=== PATIENT | male | born 1960 | race Caucasian/White ===

== ENCOUNTER 2024-10-08 08:11 | Outpatient (OUT) | payer OTHER, SELFPAY ==
--- NOTE | 2024-10-08 08:35 | CT_ITS ---
[address] [address] Patient Name: MURIEL ALLEN MRN: [id number] date: 1960 Sex: M Assigned Patient Location: LAB Current Patient Location: LAB Accession/Order Number: [id number] Exam Date: 10/08/2024 09:45 Report Date: 10/08/2024 11:58 At the request of: [facility] Procedure: CT pelvis w con EXAMINATION: CT pelvis w con HISTORY: Hydrocele N43.3 COMPARISON: No relevant comparison available. TECHNIQUE: Axial, Coronal, and Sagittal images were obtained without and/or with IV contrast as indicated by examination type. Dose reduction techniques were achieved by using automated exposure control and/or adjustment of mA and/or kV according to patient size and/or use of iterative reconstruction technique FINDINGS: BOWEL: Numerous diverticula involving the sigmoid colon without acute inflammatory changes. Unremarkable visible small bowel. Normal appendix. LYMPH NODES: No adenopathy. URINARY BLADDER: No visible focal wall thickening, lesion, or calculus. PELVIC ORGANS: No visible mass. Pelvic organs appropriate for patient age. ANTERIOR WALL: No hernia. BONES: Expansile thin-walled lesion within right iliac wing 6.4 x 7.5 cm in diameter by 2.0 cm in thickness. No cortical thickening, cortical destruction, or periosteal reaction. OTHER: Large amount of fluid within the right and left hemiscrotum with thin septations. No appreciable mass or inflammatory changes. CT/CT pelvis w con IMPRESSION: 1. Large bilateral hydroceles versus spermatoceles, right greater than left of uncertain etiology. No abnormal findings within the inguinal canals. No appreciable mass. 2. Colonic diverticulosis. 3. Nonspecific expansile lesion within right iliac wing; sequela of prior trauma versus tumor. Electronically authenticated by: SHASHI CHOWDARY Date: 10/08/2024 11:58
[2024-10-08 08:53] LABS: Estimated GFR (African America >60 (>=60 mL/min/1.73m^2); Estimated GFR (Non-African Ame >60 (>=60 mL/min/1.73m^2)
== END 2024-10-08 08:12 | disposition home or self-care (01) ==
LOC: LAB 08:18
PROVIDERS: Family Provider Internal Medicine; PCP Family Medicine; Visit Provider Surgery
DX: Z01.812 Encounter for preprocedural laboratory examination (principal); N43.3 Hydrocele, unspecified; K57.90 Diverticulosis of intestine, part unspecified, without perforation or abscess without bleeding
CPT/HCPCS: 36415; 72193; 82565; Q9967

== ENCOUNTER 2024-12-01 09:09 | Outpatient (OUT) | payer OTHER, SELFPAY ==
--- NOTE | 2024-12-01 09:45 | ECG_ITS ---
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 Measurements Intervals [place] Rate: 100 P: [place]: QRS: 81 QRSD: 100 T: 0 QT: 336 QTc: 433 Interpretive Statements ATRIAL FIBRILLATION WITH RAPID VENTRICULAR RESPONSE ANTEROSEPTAL MYOCARDIAL INFARCTION [40+ ms Q WAVE IN V1-V4], OF INDETERMINATE AGE No previous ECG available for comparison Electronically Signed On 12-02-2024 6:25:53 EST by MARISA SU M.D.
[2024-12-01 10:21] LABS: Basophils Percent Auto 0.2 % (0.2-2.0); Hematocrit 46.5 % (42.0-54.0); Hemoglobin 15.3 g/dL (14.0-18.0); Immature Granulocytes Abs Auto 0.01 10^3/uL (0.00-0.03); Immature Granulocytes Pct Auto 0.2 % (0.0-0.5); Lymphocytes Absolute Auto 1.4 10^3/uL (1.2-3.8); Lymphocytes Percent Auto 23.6 % (20.5-60.0); Mean Corpuscular HGB Conc 32.9 g/dL (29.9-35.2); Mean Corpuscular Hemoglobin 30.6 pg (25.9-34.0); Mean Platelet Volume 10.6 fL (9.5-13.5); Monocytes Absolute Auto 0.5 10^3/uL (0.3-0.8); Monocytes Percent Auto 7.9 % (1.7-12.0); Neutrophils Absolute Auto 4.2 10^3/uL (1.4-6.5); Neutrophils Percent Auto 68.1 % (43.0-75.0); Platelet Count 146 10^3/uL (150-450); Red Cell Distribution Width 13.5 % (11.0-15.0); White Blood Count 6.1 10^3/uL (4.0-11.0)
[2024-12-01 10:36] LABS: Anion Gap 9.9; BUN Creatinine Ratio 15.1; Calcium 9.1 mg/dL (8.5-10.1); Chloride 105 mmol/L (98-107); Estimated GFR (African America >60 (>=60 mL/min/1.73m^2); Estimated GFR (Non-African Ame >60 (>=60 mL/min/1.73m^2); Glucose 97 mg/dL (74-106); Potassium 4.9 mmol/L (3.5-5.1); Sodium 139 mmol/L (136-145)
--- NOTE | 2024-12-01 10:39 | PM.PRESUREVA ---
History of Present Illness History of Present Illness Chief complaint: Right Hydrocele Narrative: Patient presents for presurgical testing. The patient reports bilateral testicular swelling, right worse than left. The patient reports an increase in size and pain when doing any heavy lifting. He denies any urinary complaints. Review of Systems ROS Narrative REVIEW OF SYSTEMS: Negative except as stated in HPI, ten or more systems reviewed. Constitutional: No fever, chills, weakness ENT: No sore throat or epistaxis Cardiovascular: No edema, chest pain, palpitations, or activity intolerance Respiratory: No shortness of breath, cough, or wheezing Musculoskeletal: No joint pain or swelling Gastrointestinal: No abdominal pain, constipation, diarrhea, or vomiting Genitourinary: No dysuria or hematuria Neurological: No numbness, tingling, weakness, or headache Psychiatric: No mood changes PFSH PFS Medical History (Updated 12/01/24 @ 10:37 by Sierra Manzo NP) Irregular heart rate (12/01/24) ?I49.9 - Cardiac arrhythmia, unspecified (ICD-10) Abnormal EKG (12/01/24) ?R94.31 - Abnormal electrocardiogram [ECG] [EKG] (ICD-10) High cholesterol ?E78.00 - Pure hypercholesterolemia, unspecified (ICD-10) Right hydrocele ?N43.3 - Hydrocele, unspecified (ICD-10) Surgical History (Updated 12/01/24 @ 09:52 by Sierra Manzo NP) H/O inguinal hernia repair ?Z98.890 - Other specified postprocedural states (ICD-10) ?Z87.19 - Personal history of other diseases of the digestive system (ICD-10) History of hydrocelectomy ?Z98.890 - Other specified postprocedural states (ICD-10) Social History (Updated 12/01/24 @ 09:56 by Sierra Manzo NP) Within the past year, how often did you have a drink containing alcohol: monthly or less Smoking status: Current every day smoker What tobacco products do you use: cigarettes Packs per day: 1 Years smoked: 50 Smoking pack-years: 50.00 Non-prescribed substance use: cannabis (any form) Previous occupational history: [employer] Highest level of school completed/degree received: high school graduate Meds Home Medications and Allergies Home Medications ?Medication ?Instructions ?Recorded ?Confirmed ?Type ozxiylaus-QUF-AU-acetaminophen 7.5 30 ml PO QPM 12/01/24 12/01/24 History mg-60 [id number]/30mL oral liqd Allergies Allergy/AdvReac Type Severity Reaction Status Date / Time No Known Drug Allergies Allergy Verified 12/01/24 09:53 Exam Narrative Exam Narrative: Constitutional: Awake, alert, comfortable, well-appearing, nontoxic, interactive, vital signs as charted Head: Normocephalic, atraumatic Neck: Supple, normal appearance, normal range of motion, no meningeal signs, no lymphadenopathy Respiratory: No respiratory distress, breath sounds clear Cardiovascular: Regular rate, irregularly irregular rhythm, no murmur Abdomen: Nontender, normal bowel sounds, soft, no CVA tenderness Musculoskeletal: Normal gait, no swelling or edema Skin: No rashes or induration, no lesions, only visible skin inspected Neuro: No neurological deficits, normal sensation Psychiatric: Oriented ?3, normal affect Assessment and Plan Assessment and Plan (1) Right hydrocele: Plan Right hydrocelectomy scheduled with Dr. Hernandez December 16, 2024. The patient has an abnormal EKG here today in presurgical testing. The patient is asymptomatic, denies chest pain, shortness of breath, dyspnea on exertion, syncope, dizziness, or any other complaints. This is reported to Dr. Buitrago as well as Dr. Hernandez offices. Dr. Buitrago will see the patient in the office tomorrow morning. Patient was instructed to report to the nearest emergency department or call 911 if having any new symptoms or concerns.
[2024-12-01 10:58] LABS: INR 1.02; Partial Thromboplastin Time 26.9 sec (22.3-36.2); Prothrombin Time 10.8 sec (9.0-11.6)
== END 2024-12-01 09:10 | disposition home or self-care (01) ==
LOC: PST 09:09
PROVIDERS: Family Provider Internal Medicine; PCP Family Medicine; Visit Provider Urology
DX: Z01.810 Encounter for preprocedural cardiovascular examination (principal); Z01.812 Encounter for preprocedural laboratory examination; Z01.818 Encounter for other preprocedural examination; N43.3 Hydrocele, unspecified; I48.20 Chronic atrial fibrillation, unspecified
CPT/HCPCS: 80048; 85025; 85610; 85730; 93005; G0463

== ENCOUNTER 2025-01-11 15:50 | Emergency (ER) | payer OTHER, SELFPAY ==
[2025-01-11 16:03] VITALS: BP 148/94; PULSE 101; TEMP 37.3; O2SAT 99; BMI 23.1
--- OUTSIDE RECORDS SUMMARY | 2025-01-11 16:07 | XMS_ITS | CCD ---
Author Organization [facility] Care Team Providers Care Baggage Porter Name Role Phone TRACI STOCKTON Unavailable Unavailable JEREMY SANTOS Unavailable Unavailable GEO JONES Unavailable Unavailable GEO JONES Unavailable Unavailable JEREMY SANTOS Unavailable Unavailable Vinicius Buitrago Primary Care Physician Vinicius Buitrago Attending Unavailable Vinicius Buitrago Attending Unavailable Vinicius Buitrago Attending Unavailable Vinicius Buitrago Referring Unavailable Vinicius Buitrago Admitting Unavailable Vinicius Buitrago Attending Unavailable Vinicius Buitrago Admitting Unavailable Vinicius Buitrago Referring Unavailable Elliot WELCH Attending Unavailable Vinicius Buitrago Admitting Unavailable Vinicius Buitrago Attending Unavailable HERNANDEZQuincy Attending Unavailable HERNANDEZ, Quincy R Attending Unavailable NILLElliot R Referring Unavailable HERNANDEZ, Quincy Sparrow Attending Unavailable HERNANDEZ, Quincy R Admitting Unavailable HERNANDEZ, Quincy R Attending Unavailable HERNANDEZ, Quincy R Admitting Unavailable HERNANDEZ, Quincy R Attending Unavailable Hina Genao Referring Unavailable MD Kai Ba Attending Unavailable MD Young Sung Admitting Unavailable MD Young Sung Attending Unavailable MD Kai Ba Referring Unavailable NONE, XXXX Referring Unavailable MD Kai Ba Attending Unavailable Vinicius Buitrago Attending Unavailable Vinicius Buitrago Attending Unavailable Hina Genao Attending Unavailable Hina Genao Referring Unavailable MD Kai Ba Attending Unavailable MD Kai Ba Referring Unavailable MD Kai Ba Admitting Unavailable MD Kai Ba Consulting Unavailable MD Kai aB Attending Unavailable Kai Ba Consulting Kai Saab Consulting MD Kai Saab Admitting Unavailable MD Kai Ba Attending Unavailable MD Kai Ba Referring Unavailable Allergies Allergy Classification Reported Allergen(s) Allergy Type Date of Onset Reaction(s) Facility (3 sources) No Known Medication Allergies; Translations: [No Known Medication Allergies] Propensity to adverse reactions (disorder) [facility] Repository Problems Problem Classification Problem Date Documented Da te Episodic/Chronic Abdominal hernia (2 sources) Right inguinal hernia 08-19-2024 Episodic Cardiac dysrhythmias (8 sources) Atrial fibrillation; Translations: [Unspecified atrial fibrillation] Onset: 12-15-2024 12-02-2024 Chronic Other male genital disorders (1 source) Hydrocele; Translations: [HYDROCELE] Onset: 01-20-2018 Episodic Other male genital disorders (2 sources) Hydrocele of testis; Translations: [Hydrocele, unspecified] Onset: 09-07-2024 Episodic Other male genital disorders (16 sources) Disorder of male genital organ 09-07-2024 Episodic Other screening for suspected conditions (not mental disorders or infectious disease) (1 source) Encounter for screening for malignant neoplasm of prostate; Translations: [Screening for malignant neoplasm done] Onset: 11-08-2024 Episodic Residual codes; unclassified (10 sources) Tobacco user 08-19-2024 Episodic Substance-related disorders (11 sources) Tobacco dependence caused by cigarettes; Translations: [Nicotine dependence] Onset: 12-31-2024 08-19-2024 Chronic Unclassified (1 source) HYDROCELE / HYDROCELE() Onset: 01-20-2018 Unclassified (8 sources) Body mass index 20-24 - normal 10-11-2024 Unclassified (15 sources) Patient encounter status 10-11-2024 Results Test Name Value Interpretation Reference Range Facility NM Myocardial Spect Rest/Str ess 1 Dayon 01-06-2025 NM Myocardial Spect Rest/Stress 1 Day Exam Date/Time: 01/04/2025 13:02 EDT Reason for Exam: I48.91;Other (please specify) Report [facility] [address] [place] [address] Nuclear Stress Report Name: MEJIA ALLEN Study Date: 01/04/2025 10:44 AM [facility] Ambulatory(s) [facility] : 1960 (M/d/yyyy) Gender: Male Age: 64 yrs Ethnicity: T Reason For Study: I48.91;Other (please specify) Ordering Physician: Kai Ba Referring Physician: Kai Ba Protocol 19395 Pharmacologic Lexiscan stress with Isotope. Study Protocol: One day rest/stress acquisition. Rest Dose Tc99m Cardiolite was administered. Rest Dose: 10.1 mCi IV. Stress Dose Stress Protocol: Lexiscan. Stress Dose: 28.6 mCi IV. Stress Parameters Elevated blood pressure throughout. Stress Symptoms: Dizziness. ECG Rest Normal ECG. Atrial Fibrillation with controlled ventricular response. Non specific ST-T wave changes. Baseline ECG displays ST-T wave depression in the inferolateral leads. ECG Peak No change from baseline. No significant changes from baseline. No ST-T wave changes from baseline. Arrhythmia No arrhythmias. Image Quality Rest Images: Diagnostic in quality. Stress Images: Diagnostic in quality. SPECT Perfusion Normal rest and stress perfusion. This defect is consistent with diaphragm attenuation. There is a small sized, fixed Report defect in the inferior wall. Left Ventricle Normal global and regional wall motion in all territories. There is moderate global hypokinesis of the left ventricle. TID .99. Interpretation Summary No significant areas of ischemia identified with pharmocologic stress. Normal global and regional wall motion in all territories. This defect is consistent with diaphragm attenuation. There is a small sized, fixed defect in the inferior wall. TID .99 ___ FINAL REPORT Dictated: 01/04/2025 10:44 am Nadir Flanagan MD Signed (Electronic Signature): 01/06/2025 1:37 pm Signed by: Nadir Flanagan MD Transcribed by: [facility] Technologist: MARK Raygoza [facility] Heart and Vascular Office/Cl inic Noteon 12-31-2024 Heart and Vascular Office/Clinic Note Heart and Vascular Office/Clinic Note Chief Complaint New Patient; AFIB History of Present Illness The patient is a 64-year-old male with no known prior cardiac history present in the clinic today to F/U of Bill. He was seen by a urologist with plans to pursue a hydrocelectomy. As part of preoperative cardiac evaluation, the patient had an ECG, which demonstrated atrial fibrillation. He was started on Eliquis and metoprolol tartrate. In terms of cardiovascular symptoms, he reports none, besides occasional sharp chest discomfort on the right side, nonexertional. Denies shortness of breath, physically active, in fact, the patient is quite physically active, walking his dog, also states he was shoveling snow with no symptoms. Denies PND, orthopnea, palpitations. Denies history of hypertension/CHF/diabetes /CVA. There is no history of precocious CAD in the family. Review of Systems Constitutional: fever:no, chills:no, sweats:no, weakness:no, body aches:no, LERMA:no Skin: rash:no, lesions:no Respiratory: chest congestion/tightness:no, shortness of breath: no, cough:no, wheezing:no, orthopnea:no Cardiovascular: chest pain:no, palpitations:no, edema to LEs:no Neurologic: headache:no, dizziness:no, numbness/tingling in extremities:no, weakness:no, vision changes:no Physical Exam Vitals & Measurements HR: 77(Peripheral) RR: 18 BP: 114/73 SpO2: 99% HT: 188 cm HT: 74 in WT: 75.0 kg WT: 165.347 lb BMI: 21.22 General: Well developed, well nourished, in no acute distress Eyes: not assessed Ears: not assessed Nose: No deformity, discharge, inflammation, or lesions Mouth: not assessed Neck: Neck supple. No masses or palpable cervical nodes. Trachea midline. Thyroid without nodules, masses, tenderness, or enlargement Lungs: clear to auscultation throughout, no wheezing, no rales. No respiratory distress Cardio: irregular rate and rhythm, no murmur Abdomen: Soft, non-distended, non-tender Musculoskeletal: No deformity or scoliosis noted. Normal range of motion. Joints normal. No erythema, edema, effusion, or ecchymosis Extremity: No clubbing, cyanosis, edema, or deformity, with normal ROM in both upper and lower bilateral extremities Neurologic: not assessed Skin: not assessed Mental Status: alert and oriented x3, normal mood and affect given age Assessment/Plan 1. Atrial fibrillation (I48.91: Unspecified atrial fibrillation) Patient has documented atrial fibrillation for which she is being treated and anticoagulated. He has no awareness of the rhythm and we have advised that he has a smart watch to be ordered document the atrial fibrillation and keep a record of it when he is seen he will have his kids or grandkids help him to buy it and it is important. Ordered: EKG Reading Profee [id number] 2. Cigarette nicotine dependence (F17.210: Nicotine dependence, cigarettes, uncomplicated) Encouraged patient for nicotine cessation plan however patient refused to quit nicotine use at this time. We strongly recommend to quit nicotine use. Cigarette smoking harms nearly every organ of the body, causes many diseases, and reduces the health of smokers in general. Quitting nicotine use lowers your risk for smoking-related diseases and can add years to your life. We encourage you to visit www.smokefree.gov access to helpful resources including free telephone support. If you decide on prescription treatment to help you quit, we would be happy to provide these. Portions of this record have been created with voice recognition software. Occasional wrong-word or ???[id number]-[id number]??? substitutions may have occurred due to the inherent limitations of voice recognition software. Follow-up With When Contact Information Ana Lilia ONOFRE, Young W, CAR Within 2 weeks [address] [place] [address]- Additional Instructions: Patient Education Steps to Quit Smoking, Oxxx-[id number] Health Risks of Smoking Atrial Fibrillation, [id number] Problem List/Past Medical History Ongoing Annual wellness visit Atrial fibrillation Bilateral hydrocele BMI 21.0-21.9, adult Cigarette nicotine dependence Right hydrocele Screening PSA (prostate specific antigen) Historical No qualifying data Procedure/Surgical History Hydrocelectomy (01/20/2018), Repair of left inguinal hernia. Medications Eliquis 5 mg oral tablet, 5 mg= 1 tab(s), Oral, BID Metoprolol tartrate 25 mg Tab, 25 mg= 1 tab(s), Oral, BID, 1 refills Allergies No Known Allergies No Known Medication Allergies Social History Alcohol Current. Beer. 1-2 times per week., 09/02/2024 Substance Abuse Never., 11/03/2024 Tobacco 10 or more cigarettes (1/2 pack or more)/day in last 30 days Tobacco Use:. Never Smokeless Tobacco Use:. Cigarettes, 1 per day. Started age 16.0 Years. Household tobacco concerns: No. Yes, 12/31/2024 Family History Family history is unknown Immunizations Vaccine Date Status SARS-CoV-2 (COVID-19) [id number].[id number] 06/22/2022 Recorded SARS (more content not included)... Normal [facility] Comment on above: Result Comment: Elec tronically Signed By: Young Sung MD\.br\Date and Time Signed: 12/31/24 11:48 EDT\.br\Electronically Co-Signed By: Mariela Yu\.br\Date and Time Co-Signed: 12/31/24 11:29 EDT Heart and Vascular Office/Cl inic Noteon 12-15-2024 Heart and Vascular Office/Clinic Note Heart and Vascular Office/Clinic Note Chief Complaint New Patient- A-fib History of Present Illness The patient is a 64-year-old male with no known prior cardiac history, who was seen by a urologist with plans to pursue a hydrocelectomy. As part of preoperative cardiac evaluation, the patient had an ECG, which demonstrated atrial fibrillation. He was started on Eliquis and metoprolol tartrate. In terms of cardiovascular symptoms, he reports none, besides occasional sharp chest discomfort on the right side, nonexertional. Denies shortness of breath, physically active, in fact, the patient is quite physically active, walking his dog, also states he was shoveling snow with no symptoms. Denies PND, orthopnea, palpitations. Denies history of hypertension/CHF/diabetes /CVA. There is no history of precocious CAD in the family Review of Systems PHQ Score Initial Depression Screen Score: 0 SCORE ROS - Provider Constitutional: no fever, no chills, no fatigue Skin:no rash, no lesions ENMT: no ear pain, no sore throat, no congestion. Respiratory: no shortness of breath, no cough, no wheezing. Cardiovascular: yes chest pain, no palpitations, no edema. Gastrointestinal: no nausea, no vomiting, no diarrhea, no GI bleeding. Genitourinary: no dysuria, no frequencyno hematuria Musculoskeletal: no back pain, no trauma. Neurologic: no headache, no dizziness, no numbness, no weakness. Psychiatric: no sleeping problems, no irritability, no mood swings/depression. Heme/Lymph: no bleeding tendency, no bruising tendency, no petechiae, Allergy/Immuno logic: no seasonal allergies, no food allergies, no recurrent infections Physical Exam Vitals & Measurements HR: 90(Peripheral) RR: 18 BP: 113/78 SpO2: 96% HT: 188 cm HT: 74 in WT: 74.2 kg WT: 163.583 lb BMI: 20.99 General: alert, no acute distress Neck: Supple, noJVD nocarotid bruit Cardiovascular: irregularly-irregular rate and rhythm, no murmur normal peripheral perfusion. Chest wall is tender to palpation with reproduction of the chest pains that the patient was describing Respiratory: Lungs CTAB, respirations non labored Extremities: no edema left lower extremity. no edema right lower extremity Neurological: oriented x 4, LOC appropriate for age, speech normal Skin: Warm, dry, intact- no rash or concerning lesions Procedure ECG performed in the office demonstrated atrial fibrillation at 80 to 90 bpm with nonspecific repolarization abnormalities, by my independent review. Assessment/Plan 1. Atrial fibrillation (I48.91: Unspecified atrial fibrillation) Rate appears to be well-controlled. Continue Eliquis for the time being, pending echocardiogram, if EF is unremarkable, may consider stopping that and start low-dose aspirin, with [id number] risk score of 1. Will check TSH/TTE to rule out structural heart disease. Referral to clinical cardiac electrophysiology, Dr. Sung 2. Preoperative cardiovascular examination (Z01.810: Encounter for preprocedural cardiovascular examination) No cardiac contraindications for a low risk surgery. Physical activity level is quite well-preserved. The patient's symptoms of chest pain are consistent with noncardiac/reproducible CP. Orders: ECG 12 Lead Adult Follow-up No qualifying data available Appointment with electrophysiology Problem List/Past Medical History Ongoing Annual wellness visit Atrial fibrillation Bilateral hydrocele BMI 21.0-21.9, adult Cigarette nicotine dependence Right hydrocele Screening PSA (prostate specific antigen) Historical No qualifying data Procedure/Surgical History Hydrocelectomy (01/20/2018), Repair of left inguinal hernia. Medications Eliquis 5 mg oral tablet, 5 mg= 1 tab(s), Oral, BID Metoprolol tartrate 25 mg Tab, 25 mg= 1 tab(s), Oral, BID, 1 refills Allergies No Known Allergies No Known Medication Allergies Social History Alcohol Current. Beer. 1-2 times per week., 09/02/2024 Substance Abuse Never., 11/03/2024 Tobacco 10 or more cigarettes (1/2 pack or more)/day in last 30 days Tobacco Use:. Never Smokeless Tobacco Use:. Cigarettes, 1 per day. Started age 16.0 Years. Household tobacco concerns: No. Yes, 12/15/2024 Family History Family history is unknown Immunizations Vaccine Date Status SARS-CoV-2 (COVID-19) mRNAMUL.ORD![id number] 06/22/2022 Recorded SARSCoV2 mRNA(armtjomcd-mmua-csrxt s) vac 02/23/2022 Recorded SARS-CoV-2 (COVID-19) mRNA BNT-162b2 vax 09/25/2021 Recorded SARS-CoV-2 (COVID-19) mRNA BNT-162b2 vax 09/04/2021 Recorded Normal [facility] Comment on above: Result Comment: Elec tronically Signed By: Jesenia ONOFRE, Kai Handy\.br\Date and Time Signed: 12/15/24 14:54 EDT Family Medicine Office/Clini c Noteon 12-06-2024 Family Medicine Office/Clinic Note Family Medicine Office/Clinic Note Chief Complaint A fib Cardiac clearance needed for hydrocele repair procedure. HPI Staff Follow up to Afib CINDY 12/02/24 seen by Hina. EKG done at that time. (previous abnormal EKG done @ [facility] for PAT) Pt started on eliquis 5mg BID & metoprolol 25mg BID History of Present Illness The patient is a 64-year-old male presenting with the requirement for cardiac clearance for hydrocele repair. He has a history of atrial fibrillation, requiring bi-annual reviews, with the current visit serving as a clearance check for a pending procedure. In the past, this required thorough consideration, as seen during a previous canceled surgery attempt. The patient has been smoking approximately one cigarette a day, contributing to a diagnosed Chronic Obstructive Pulmonary Disease (COPD), evidenced by increased lung air retention and diminished ease of heart auscultation. Despite previous lung scans showing no malignancies, ongoing smoking poses significant concerns for pulmonary functionality. The patient maintains an active lifestyle without noticeable breathlessness???walking and yard work inducing no shortness of breath. Current management of atrial fibrillation involves precautions owing to blood thinner medication, necessitating increased vigilance in case of head trauma due to potential bleeding risks. Continued smoking is strongly discouraged, given the likelihood of furthering COPD expansion. - Tobacco cessation advice given due to COPD impact and smoking risks - Blood thinner safety precautions discussed, emphasizing immediate ER visits post-head trauma - Continued pulmonary function monitoring suggested due to smoking history - Encouragement of physical activity to maintain cardiovascular health, ensuring no exertion leads to dyspnea Review of Systems PHQ Score Initial Depression Screen Score: 0 SCORE Physical Exam Vitals & Measurements T: 36.5 ???C(Tympanic) HR: 5(Peripheral) RR: 18 BP: 132/86 SpO2: 98% HT: 74 in HT: 188 cm WT: 76.1 kg WT: 167.772 lb BMI: 21.53 General: alert, no acute distress ENMT: oral mucosa moist Cardiovascular: irregular rate and rhythm, normal peripheral perfusion Respiratory: Lungs clear to auscultation, respirations non labored, but signs of air entrapment due to smoking Extremities: no deformity, no trauma Neurological: oriented x 4, level of consciousness appropriate for age, CN II-XII intact, motor strength equal & normal bilaterally, speech normal Abdomen: Soft, Non-tender, Non-distended, + Bowel sounds Assessment/Plan 1. BMI 21.0-21.9, adult (Z68.21: Body mass index [BMI] 21.0-21.9, adult) Continued BMI management within standard parameters, emphasizing nutritional and physical activity guidance aligned with sustained cardiovascular and metabolic health. 2. Tobacco use (Z72.0: Tobacco use) Emphasize tobacco cessation efforts with education on its adverse impacts, promoting programs to aid in quitting smoking. 3. Bilateral hydrocele (N43.3: Hydrocele, unspecified) Follow up with urology for repair. 4. Atrial fibrillation (I48.91: Unspecified atrial fibrillation) Ensure anticoagulant regimen for atrial fibrillation remains consistent, with necessary cardiac clearance planned for hydrocele repair. Regular rhythm monitoring and safe execution of clearance procedures advised. 64-year-old male with a history of atrial fibrillation presenting with a need for cardiac clearance for hydrocele repair. Contributing factors include a tobacco use disorder resulting in Chronic Obstructive Pulmonary Disease (COPD) affecting pulmonary and cardiovascular assessments. Atrial fibrillation demands regular follow-ups due to anticoagulant therapy, which entails heightened bleeding risk precautions. Monitoring and addressing lung function changes concurrent with smoking cessation efforts remain vital. During the consultation, we discussed the need for cardiac clearance essential for the patient's hydrocele repair due to atrial fibrillation. The importance of a consistent anticoagulant regimen was reinforced, with detailed precautions for bleeding risks explained, especially concerning head trauma. I highlighted the influence of tobacco use on the progression of the patient's Chronic Obstructive Pulmonary Disease (COPD), strongly advising cessation with support options detailed. Furthermore, the dialogue included encouragement for sustained physical activity and weight maintenance, emphasizing their role in managing both BMI and cardiovascular health effectively. Consent and understanding of risks and benefits discussed in detail, along with the management plan, ensuring the patient demonstrates an understanding of procedural and long-term health directions. Total time spent preparing for the encounter, evaluating and assessing the patient, documenting the visit, and ordering appropriate follow-up work was 30 minutes. Follow-up No qualifying data available Problem List/Past Medical History (more content not included)... Normal [facility] Comment on above: Result Comment: Elec tronically Signed By: Vinicius Buitrago MD\.br\Date and Time Signed: 12/06/24 18:12 EDT Ambulatory Visit Summaryon 0 12-02-2024 Ambulatory Visit Summary Ambulatory Visit Summary TIFFANYMEJIA Augusto :1960 Visit Date:12/02/2024 Ambulatory Visit Instructions Your Diagnosis Atrial fibrillation BMI 21.0-21.9, adult Non-smoker Abnormal EKG Your Care Team Attending Physician - Hina Palmer Primary Care Physician - Vinicius Buitrago MD This Is Your Medications List apixaban (Eliquis 5 mg oral tablet) metoprolol (Metoprolol tartrate 25 mg Tab) Procedures Performed Hydrocelectomy (01/20/2018), Repair of left inguinal hernia. Discharge Vitals Heart Rate (Peripheral) 80 Respiratory Rate 18 Blood Pressure 142/86 Height 188.0 cm Height 74 in Weight 75.20 kg Weight 165.787 lb BMI 21.28 What to do next Scheduled Follow-Up Appointments Friday 6:00 PM EDT With: Iftikhar ONOFRE, Vinicius Hooker Where: [facility] [address] [address]- Friday 3:00 PM EDT With: Jesenia ONOFRE, Kai Handy Where: Cardiology Clinic Friday 9:30 AM EDT With: ZEFERINO ONOFRE, Quincy Sparrow Where: [facility] [address] [place] [address]- Medications What How Much When Why Instructions New metoprolol (Metoprolol tartrate 25 mg Tab) 1 Tablets By Mouth 2 times a day Atrial fibrillation BMI 21.0-21.9, adult Non-smoker Abnormal EKG Refills: 1 Pickup at [facility] Unchanged apixaban (Eliquis 5 mg oral tablet) Pharmacy Information [facility]: [address] [place], [place] [id number] [phone] Allergies No Known Allergies No Known Medication Allergies Problems Ongoing - Any problem that you are currently receiving treatment for. Annual wellness visit Atrial fibrillation Bilateral hydrocele BMI 21.0-21.9, adult Cigarette nicotine dependence Right hydrocele Screening PSA (prostate specific antigen) Patient Survey You may receive a survey via text or e-mail asking about your office visit. Please share your experience with us by completing your survey. We appreciate your feedback and thank you for choosing us for your care. Normal [facility] Family Medicine Office/Clini c Noteon 12-02-2024 Family Medicine Office/Clinic Note Family Medicine Office/Clinic Note HPI Staff Mejia is a 64 year old male presenting to discuss Abnormal EKG Pt has pre surgical testing done at [facility] on 12/01/24 pt had abnormal EKG showing A-fib patient was asymptomatic History of Present Illness pt presents today to discuss recent EKG results. went to [facility] for pre surgical testing and was found to be in A fib Review of Systems PHQ Score Initial Depression Screen Score: 3 SCORE Detailed Depression Screen Score: 1 Total Depression Screen Score: 4 Physical Exam Vitals & Measurements HR: 80(Peripheral) RR: 18 BP: 142/86 SpO2: 99% HT: 74 in HT: 188.0 cm WT: 75.20 kg WT: 165.787 lb BMI: 21.28 General: alert, no acute distress ENMT: oral mucosa moist, no pharyngeal erythema or exudate Cardiovascular: irregular rate and rhythm, a fib Respiratory: Lungs CTA, respirations non labored Extremities: no deformity, no trauma Neurological: oriented x 4, LOC appropriate for age, CN II-XII intact, motor strength equal & normal bilaterally, speech normal Assessment/Plan 1. Atrial fibrillation (I48.91: Unspecified atrial fibrillation) EKG was repeat in office today. Dr. Buitrago was able to review it. pt denies any symptoms. no SOB, chest pain, heart racing. pt states I do not feel any different. samples of eliquis provided. pt will take 5mg BID. also sent in metoprolol 25mg BID. instructed pt to go to ER if he has any symptoms. if heart rate goes above 100. the soonest we could get him into cardiology is 12/15. will return on Friday to see Dr. Buitrago Ordered: apixaban, 5 mg = 1 tab(s), Oral, BID, # 60 tab(s), Refills(s) 0, Pharmacy: [facility], 188, cm, 12/02/24 8:47:00 EST, Height/Length Dosing, 75.2, kg, 12/02/24 8:47:00 EST, Weight Dosing metoprolol, 25 mg = 1 tab(s), Oral, BID, # 60 tab(s), Refills(s) 1, Pharmacy: [facility] 1622, 188, cm, 12/02/24 8:47:00 EST, Height/Length Dosing, 75.2, kg, 12/02/24 8:47:00 EST, Weight Dosing 2. Abnormal EKG (R94.31: Abnormal electrocardiogram [ECG] [EKG]) pre surgical EKG at [facility] was abnormal. A-fib Ordered: apixaban, 5 mg = 1 tab(s), Oral, BID, # 60 tab(s), Refills(s) 0, Pharmacy: [facility] 1622, 188, cm, 12/02/24 8:47:00 EST, Height/Length Dosing, 75.2, kg, 12/02/24 8:47:00 EST, Weight Dosing metoprolol, 25 mg = 1 tab(s), Oral, BID, # 60 tab(s), Refills(s) 1, Pharmacy: [facility] 1622, 188, cm, 12/02/24 8:47:00 EST, Height/Length Dosing, 75.2, kg, 12/02/24 8:47:00 EST, Weight Dosing ECG 12 Lead Adult 3. BMI 21.0-21.9, adult (Z68.21: Body mass index [BMI] 21.0-21.9, adult) BMI education given Ordered: apixaban, 5 mg = 1 tab(s), Oral, BID, # 60 tab(s), Refills(s) 0, Pharmacy: [facility] 1622, 188, cm, 12/02/24 8:47:00 EST, Height/Length Dosing, 75.2, kg, 12/02/24 8:47:00 EST, Weight Dosing metoprolol, 25 mg = 1 tab(s), Oral, BID, # 60 tab(s), Refills(s) 1, Pharmacy: [facility] 1622, 188, cm, 12/02/24 8:47:00 EST, Height/Length Dosing, 75.2, kg, 12/02/24 8:47:00 EST, Weight Dosing ECG 12 Lead Adult 4. Non-smoker (Z78.9: Other specified health status) continue not smoking Ordered: apixaban, 5 mg = 1 tab(s), Oral, BID, # 60 tab(s), Refills(s) 0, Pharmacy: [facility] 1622, 188, cm, 12/02/24 8:47:00 EST, Height/Length Dosing, 75.2, kg, 12/02/24 8:47:00 EST, Weight Dosing metoprolol, 25 mg = 1 tab(s), Oral, BID, # 60 tab(s), Refills(s) 1, Pharmacy: [facility] 1622, 188, cm, 12/02/24 8:47:00 EST, Height/Length Dosing, 75.2, kg, 12/02/24 8:47:00 EST, Weight Dosing ECG 12 Lead Adult Follow-up No qualifying data available Problem List/Past Medical History Ongoing Annual wellness visit Atrial fibrillation Bilateral hydrocele BMI 21.0-21.9, adult Cigarette nicotine dependence Right hydrocele Screening PSA (prostate specific antigen) Historical No qualifying data Procedure/Surgical History Hydrocelectomy (01/20/2018), Repair of left inguinal hernia. Medications Eliquis 5 mg oral tablet Eliquis 5 mg oral tablet, 5 mg= 1 tab(s), Oral, BID Metoprolol tartrate 25 mg Tab, 25 mg= 1 tab(s), Oral, BID, 1 refills Allergies No Known Allergies No Known Medication Allergies Social History Alcohol Current. Beer. 1-2 times per week., 09/02/2024 Substance Abuse Never., 11/03/2024 Tobacco 10 or more cigarettes (1/2 pack or more)/day in last 30 days Tobacco Use:. Never Smokeless Tobacco Use:. Cigarettes, 1 per day. Started age 16.0 Years. Household tobacco concerns: No. Yes, 11/08/2024 Family History Family history is unknown Immunizations Vaccine Date Status SARS-CoV-2 (COVID-19) [id number] 06/22/2022 Recorded SARSCoV2 mRNA(jogzbexjk-kxmb-ixvmn s) vac 02/23/2022 Recorded SARS-CoV-2 (COVID-19) mRNA BNT-162b2 vax 09/25/2021 Recorded SARS-CoV-2 (COVID-19) mRNA BNT-162b2 vax 09/04/2021 Recorded Normal [facility] Comment on above: Result Comment: Elec tronically Signed By: Hina Palmer\.br\Date and Time Signed: 12/02/24 09:18 EST Patient Letter FTon 2024 Patient Letter [facility] Patient Letter [facility] November 11, 2024 MEJIA ALLEN [address] [place] [address] : 1960 Dear Mejia Allen, We have been trying to reach you with no success. It is important that you return our call upon receiving this letter. Also, at the time of your call, please provide us with your current information. Thank you for your prompt attention to this matter. Sincerely, [facility] [address] [place] [address] [facility] Ambulatory Visit Summaryon 0 11-08-2024 Ambulatory Visit Summary Ambulatory Visit Summary MEJIA ALLEN :1960 Visit Date:11/08/2024 Ambulatory Visit Instructions Your Diagnosis Bilateral hydrocele Screening PSA (prostate specific antigen) Your Care Team Attending Physician - ZEFERINO ONOFRE, Quincy Sparrow Primary Care Physician - Iftikhar ONOFRE, Vinicius Hooker Referring Physician - Elliot WELCH MD Procedures Performed Hydrocelectomy (01/20/2018), Repair of left inguinal hernia. Discharge Vitals Temperature (Oral) 37 ???C Heart Rate (Peripheral) 74 Blood Pressure 138/74 Height 188 cm Height 74 in Weight 76.8 kg Weight 169.315 lb BMI 21.73 What to do next Scheduled Follow-Up Appointments Friday 9:30 AM EDT With: Quincy HERNANDEZ MD Where: [facility] of [address] [place] [address]- You Need to Schedule the Following Appointments Follow Up with Quincy HERNANDEZ MD, URL When: Comments: Schedule Rt Hydrocelectomy Where: [facility] [address], [place] [address]- Allergies No Known Allergies No Known Medication Allergies Problems Ongoing - Any problem that you are currently receiving treatment for. Annual wellness visit Bilateral hydrocele BMI 21.0-21.9, adult Cigarette nicotine dependence Right hydrocele Screening PSA (prostate specific antigen) Patient Survey You may receive a survey via text or e-mail asking about your office visit. Please share your experience with us by completing your survey. We appreciate your feedback and thank you for choosing us for your care. Education Materials Prostate Cancer Screening Prostate cancer screening is testing that is done to check for the presence of prostate cancer in men. The prostate gland is a walnut-sized gland that is located below the bladder and in front of the rectum in males. The function of the prostate is to add fluid to semen during ejaculation. Prostate cancer is one of the most common types of cancer in men. Who should have prostate cancer screening? Screening recommendations vary based on age and other risk factors, as well as between the professional organizations who make the recommendations. In general, screening is recommended if: ??? You are age 50 to 70 and have an average risk for prostate cancer. You should talk with your health care provider about your need for screening and how often screening should be done. Because most prostate cancers are slow growing and will not cause , screening in this age group is generally reserved for men who have a 10- to 15-year life expectancy. ??? You are younger than age 50, and you have these risk factors: ? Having a father, brother, or uncle who has been diagnosed with prostate cancer. The risk is higher if your family member's cancer occurred at an early age or if you have multiple family members with prostate cancer at an early age. ? Being a male who is Black or is of [place] or sub-Saharan descent. In general, screening is not recommended if: ??? You are younger than age 40. ??? You are between the ages of 40 and 49 and you have no risk factors. ??? You are 70 years of age or older. At this age, the risks that screening can cause are greater than the benefits that it may provide. If you are at high risk for prostate cancer, your health care provider may recommend that you have screenings more often or that you start screening at a younger age. How is screening for prostate cancer done? The recommended prostate cancer screening test is a blood test called the prostate-specific antigen (PSA) test. PSA is a protein that is made in the prostate. As you age, your prostate naturally produces more PSA. Abnormally high PSA levels may be caused by: ??? Prostate cancer. ??? An enlarged prostate that is not caused by cancer (benign prostatic hyperplasia, or BPH). This condition is very common in older men. ??? A prostate gland infection (prostatitis) or urinary tract infection. ??? Certain medicines such as male hormones (like testosterone) or other medicines that raise testosterone levels. A rectal exam may be done as part of prostate cancer screening to help provide information about the size of your prostate gland. When a rectal exam is performed, it should be done after the PSA level is drawn to avoid any effect on the results. Depending on the PSA results, you may need more tests, such as: ??? A physical exam to check the size of your prostate gland, if not done as part of screening. ??? Blood and imaging tests. ??? A procedure to remove tissue samples from your prostate gland for testing (biopsy). This is the only way to know for certain if you have prostate cancer. What are the benefits of prostate cancer screening? Screening can help to identify cancer at an early stage, before symptoms start and when the ca (more content not included)... Normal [facility] CHEMISTRYOrdered By: SYSTEM SYSTEM on 11-08-2024 Prostate specific Ag [Mass/Vol] 0.5 ng/mL Normal 0.1 - 3.5 ng/mL [facility] Comment on above: Interpretive Data: T he concentration of PSA determined by different manufacturers can vary due to differences in assay methods and reagent specificity. Values obtained from different assay methods cannot be used interchangeably. The methodology used for this result was chemiluminescence using [employer]'s Access Hybritech PSA reagent. PSA Screen, Totalon 11-08-19 25 Prostate specific Ag [Mass/Vol] 0.5 ng/mL Normal 0.1-3.5 [facility] Comment on above: Result Comment: The concentration of PSA determined by different manufacturers can vary due to differences in assay methods and reagent specificity. Values obtained from different assay methods cannot be used interchangeably. The methodology used for this result was chemiluminescence using [employer]'s Access Hybritech PSA reagent. Performed By: #### 1 [id number] #### [facility] Laboratory [address] [place] [address] Urology Office/Clinic Noteon 11-08-2024 Urology Office/Clinic Note Urology Office/Clinic Note Chief Complaint bilat hydrocele HPI Staff 64yr old male pt referred by Dr. Vinicius Buitrago for bilateral hydroceles. CT of pelvis done 10/08/24. Dysuria: _no Incomplete bladder emptying: _no Hematuria: _no Frequency: _q3-4 hrs Urgency: _no Nocturia: _1x Stream: _weak at times Leaking: _no Post void dripping: _no Wearing pads/ Depends: _no Urge incontinence: _no Stress incontinence: _no Incontinence without Sensory Awareness: _no Abdominal pain: _no Flank pain: _no Sexual complaints: _ History of Present Illness Tests reviewed: reviewed UA and External Records. I have reviewed the previous health record information and history for this patient from External Provider. I have reviewed and verified the staff HPI to be accurate for this encounter. There have been no associated fever, chills, flank pain, or blood in the urine. Denies any urinary infections since last encounter. Review of Systems PHQ Score Initial Depression Screen Score: 0 SCORE ROS - Provider Constitutional: denies weight loss, denies hot flashes. Eyes: denies eye problems. Gastrointestinal: denies nausea, denies vomiting. Cardiovascular: denies chest pain or angina. Integumentary: no dryness Musculoskeletal: denies musculoskeletal symptoms. ENMT: denies otolaryngeal symptoms. Respiratory: no shortness of breath. Heme/Lymph: denies easy bleeding tendency, denies easy bruising tendency. Psychiatric: no confusion, no anxiety. Genitourinary: See HPI. Physical Exam Vitals & Measurements T: 37 ???C(Oral) HR: 74(Peripheral) BP: 138/74 HT: 74 in HT: 188 cm WT: 76.8 kg WT: 169.315 lb BMI: 21.73 General Appearance: alert, no distress, well nourished, well developed male. Head: normocephalic . Eyes: normal orbit and globe. ENMT: normal examination of external ears. Chest: Lungs CTA, respirations non labored. Cardiovascular: regular rate and rhythm. Abdomen: soft, non distended, no tenderness, no mass or organomegaly, no hernia. Genitourinary: normal scrotum, normal testes, normal urethra, normal epididymis, normal vas deferens/spermatic cord, Significant Rt hydrocele going up towards the inguinal ring, Lt hydrocele Flank Pain: none. Bladder: nonpalpable. Penis: normal shaft, normal glans Prostate: normal prostate, estimated weight 20 gms, no hard nodule observed. Lymph Nodes: unremarkable palpation of the cervical area. Skin: warm, dry, no bruising. Psychiatric: cooperative, affect appropriate for age, normal judgement, euthymic mood. Assessment/Plan IPSS 3, BOLA 6. UA today is negative for blood and infection. 1. Bilateral hydrocele (N43.3: Hydrocele, unspecified) S/p Lt Hydrocelectomy 2018 [facility] CT of Pelvis 10/08/24 - large BL hydroceles vs spermatoceles, Rt greater than the Lt of uncertain etiology PCP thought that the pt had a hernia, referred him to general surgery, Dr. Welch, he ordered the CT and the hydroceles were found. Had previously wanted the Rt sided hydrocele to be removed at the time of the large Lt one. PE:Significant Rt hydrocele going up to the external inguinal ring, Lt hydrocele Counseled pt on the causes of the hydroceles. Advised pt that we can remove the Rt sided hydrocele and determine if the Lt one needs removed afterwards. Pt states that when he does any heavy lifting then the hydrocele will rise up, states that they get in the way. All questions/concerns were discussed. Pt to call the office if he encounters any issues prior. Pt acknowledges understanding. -Will schedule Rt Hydrocelectomy. The procedure risks, benefits, and treatment alternatives have been discussed with the patient. These include bleeding, infection, recurrence of fluid collection in the scrotum in 10-15%, and need for additional procedures, among others. Full informed consent has been obtained. Will order General anesthesia. 2. Screening PSA (prostate specific antigen) (Z12.5: Encounter for screening for malignant neoplasm of prostate) Denies any bothersome urinary sxs, previous hx of kidney stones or family hx of prostate cancer. Has been a while since his last PSA draw. Advised pt that we can have this drawn IO today and will call him with the results. BECKY: ~20gms, no nodules -PSA drawn IO today, Will call with results. Follow-up With When Contact Information ZEFERINO ONOFRE, Quincy Sparrow, URL [facility] [address], [place] [address]- Additional Instructions: Schedule Rt Hydrocelectomy Patient Education Prostate Cancer Screening I, Julia Sprague , personally scribed for Dr. Hernandez on 11/08/2024 11:36:17. . Documentation recorded by the scribe, Julia Sprague, accurately reflects the services(s) I performed and decisions made by me. Problem List/Past Medical History Ongoing Annual wellness visit Bilateral hydrocele BMI 21.0-21.9, adult Cigarette nicotine dependence Right hy (more content not included)... Normal [facility] Comment on above: Result Comment: Elec tronically Signed By: Quincy HERNANDEZ MD\.br\Date and Time Signed: 11/08/24 11:38 EST\.br\Electronically Co-Signed By: Julia Sprague\.br\Date and Time Co-Signed: 11/08/24 11:36 EST Ambulatory Visit Summaryon 0 10-11-2024 Ambulatory Visit Summary Ambulatory Visit Summary MEJIA ALLEN :1960 Visit Date:10/11/2024 Ambulatory Visit Instructions Your Diagnosis Annual wellness visit Cigarette nicotine dependence Right hydrocele Your Care Team Attending Physician - Vinicius Buitrago MD Primary Care Physician - Vinicius Buitrago MD Procedures Performed Hydrocelectomy (01/20/2018), Repair of left inguinal hernia. Discharge Vitals Temperature (Tympanic) 37.1 ???C Heart Rate (Peripheral) 67 Respiratory Rate 18 Blood Pressure 128/82 Height 185.7 cm Height 73 in Weight 72.9 kg Weight 160.717 lb BMI 21.14 Allergies No Known Allergies No Known Medication Allergies Problems Ongoing - Any problem that you are currently receiving treatment for. Annual wellness visit BMI 21.0-21.9, adult Cigarette nicotine dependence Right hydrocele Patient Survey You may receive a survey via text or e-mail asking about your office visit. Please share your experience with us by completing your survey. We appreciate your feedback and thank you for choosing us for your care. Normal [facility] CBC w/ Auto Diffon 5 Basophils/100 WBC (Bld) 0.4 % Normal 0.0-2.0 [facility] Comment on above: Performed By: #### 2 [id number] #### [facility] [address] [place] [address] Basophils/Leukocytes Auto (Bld) [Pure # fraction] 0.0 E9/L Normal 0.0-0.2 [facility] Comment on above: Performed By: #### 2 [id number] #### [facility] [address] [place] [address] Eosinophils (Bld) [#/Vol] 0.1 E9/L Normal 0.0-0.5 [facility] Comment on above: Performed By: #### 2 [id number] #### [facility] [address] [place] [address] Eosinophils/100 WBC (Bld) 1.8 % Normal 0.0-8.0 [facility] Comment on above: Performed By: #### 2 [id number] #### [facility] [address] [place] [address] Erythrocyte distribution width (RBC) [Ratio] 13.6 % Normal 10.9-14.2 [facility] Comment on above: Performed By: #### 2 [id number] #### [facility] [address] [place] [address] Hematocrit (Bld) [Volume fraction] 46.2 % Normal 37.7-49.0 [facility] Comment on above: Performed By: #### 2 [id number] #### [facility] [address] [place] [address] Hemoglobin (Bld) [Mass/Vol] 15.6 g/dL Normal 13.5-17.5 [facility] Comment on above: Performed By: #### 2 [id number] #### [facility] [address] [place] [address] Lymphocytes (Bld) [#/Vol] 1.2 E9/L Normal 1.0-4.0 [facility] Comment on above: Performed By: #### 2 [id number] #### [facility] [address] [place] [address] Lymphocytes/100 WBC (Bld) 21.5 % Normal 14.0-50.0 [facility] Comment on above: Performed By: #### 2 [id number] #### [facility] [address] [place] [address] MCH (RBC) [Entitic mass] 30.9 pg Normal 27.0-34.0 [facility] Comment on above: Performed By: #### 2 [id number] #### [facility] [address] [place] [address] MCHC (RBC) [Mass/Vol] 33.8 g/dL Normal 31.4-36.0 [facility] Comment on above: Performed By: #### 2 [id number] #### [facility] [address] [place] [address] MCV (RBC) [Entitic vol] 91.6 fL Normal 80.0-100.0 [facility] Comment on above: Performed By: #### 2 [id number] #### [facility] [address] [place] [address] Monocytes (Bld) [#/Vol] 0.5 E9/L Normal 0.2-1.0 [facility] Comment on above: Performed By: #### 2 [id number] #### [facility] [address] [place] [address] Neutrophils (Bld) [#/Vol] 3.9 E9/L Normal 2.0-7.5 [facility] Comment on above: Performed By: #### 2 [id number] #### [facility] [address] [place] [address] Neutrophils/100 WBC (Bld) 67.2 % Normal 36.0-75.0 [facility] Comment on above: Performed By: #### 2 [id number] #### [facility] [address] [place] [address] Platelet 176.0 E9/L Normal 150.0-500.0 [facility] Comment on above: Performed By: #### 2 [id number] #### [facility] [address] [place] [address] Platelet mean volume (Bld) [Entitic vol] 9.3 fL Normal 6.4-10.8 [facility] Comment on above: Performed By: #### 2 [id number] #### [facility] [address] [place] [address] RBC (Bld) [#/Vol] 5.0 E12/L Normal 4.3-5.9 [facility] Comment on above: Performed By: #### 2 [id number] #### [facility] [address] [place] [address] WBC corrected for nucl RBC Auto (Bld) [#/Vol] 5.8 E9/L Normal 4.0-11.0 [facility] Comment on above: Performed By: #### 2 [id number] #### [facility] [address] [place] [address] CHEMISTRYOrdered By: SYSTEM SYSTEM on 10-11-2024 Albumin [Mass/Vol] 4.6 g/dL Normal 3.3 - 5.0 gm/dL [facility] Albumin/Globulin [Mass ratio] 1.7 {ratio} Normal 1.1 - 2.2 [facility] ALP [Catalytic activity/Vol] 69 [iU]/d Normal 21 - 98 Int._Unit/L [facility] ALT No additional P-5'-P [Catalytic activity/Vol] 10 [iU]/d Normal 6 - 46 Int._Unit/L [facility] Anion gap [Moles/Vol] 11 mmol/L Normal 6 - 16 mEq/L [facility] AST [Catalytic activity/Vol] 23 [iU]/d Normal 5 - 43 Int._Unit/L [facility] Bilirubin [Mass/Vol] 0.7 mg/dL Normal 0.0 - 1 .1 mg/dL [facility] Calcium [Mass/Vol] 9.7 mg/dL Normal 8.9 - 11. 1 mg/dL [facility] Chloride [Moles/Vol] 102 mmol/L Normal 101 - 1 11 mmol/L [facility] Cholesterol [Mass/Vol] 205 mg/dL High 120 - 200 mg/dL [facility] Cholesterol in HDL [Mass/Vol] 63 mg/dL Invalid Interpretation Code [facility] Comment on above: Result Comment: '>= 60 LOW RISK' '<= 40 HIGH RISK' Cholesterol in LDL [Mass/Vol] 131 mg/dL High <=129mg/dL [facility] Cholesterol in VLDL [Mass/Vol] 20 mg/dL Normal 7 - 40 mg/dL [facility] CO2 [Moles/Vol] 28 mmol/L Normal 21 - 31 mmol/L [facility] Creatinine [Mass/Vol] 0.9 mg/dL Normal 0.5 - 1.3 mg/dL [facility] eGFR 95 mL/min/1.73 m2 Normal >=59mL/min /1 .73 m2 [facility] Globulin (S) [Mass/Vol] 2.7 g/dL Normal 1.4 - 4.0 gm/dL [facility] Glucose [Mass/Vol] 99 mg/dL Normal 55 - 199 mg/dL [facility] Potassium [Moles/Vol] 4.7 mmol/L Normal 3.5 - 5.3 mmol/L [facility] Protein [Mass/Vol] 7.3 g/dL Normal 6.0 - 7.8 gm/dL [facility] Sodium [Moles/Vol] 136 mmol/L Normal 135 - 145 mmol/L [facility] Triglyceride [Mass/Vol] 98 mg/dL Normal <=149mg/dL [facility] Urea nitrogen [Mass/Vol] 17 mg/dL Normal 5 - 21 mg/dL [facility] Urea nitrogen/Creatinine [Mass ratio] 19 mg/mg Normal 10 - 20 [facility] CMPon 10-11-2024 Albumin [Mass/Vol] 4.6 g/dL Normal 3.3-5.0 [facility] Comment on above: Performed By: #### 2 [id number] #### [facility] [address] [place] [address] Albumin/Globulin (S) [Mass conc ratio] 1.7 Normal 1.1-2.2 [facility] Comment on above: Performed By: #### 2 [id number] #### [facility] [address] [place] [address] ALP [Catalytic activity/Vol] 69 Int._Unit/L Normal 21-98 [facility] Comment on above: Performed By: #### 2 [id number] #### [facility] [address] [place] [address] ALT No additional P-5'-P [Catalytic activity/Vol] 10 Int._Unit/L Normal 6-46 [facility] Comment on above: Performed By: #### 2 [id number] #### [facility] [address] [place] [address] Anion gap [Moles/Vol] 11 mmol/L Normal 6-16 [facility] Comment on above: Performed By: #### 2 [id number] #### [facility] [address] [place] [address] AST [Catalytic activity/Vol] 23 Int._Unit/L Normal 5-43 [facility] Comment on above: Performed By: #### 2 [id number] #### [facility] [address] [place] [address] Bilirubin [Mass/Vol] 0.7 mg/dL Normal 0.0-1.1 [facility] Comment on above: Performed By: #### 2 [id number] #### [facility] [address] [place] [address] Calcium [Mass/Vol] 9.7 mg/dL Normal 8.9-11.1 [facility] Comment on above: Performed By: #### 2 [id number] #### [facility] [address] [place] [address] Chloride [Moles/Vol] 102 mmol/L Normal 101-111 [facility] Comment on above: Performed By: #### 2 [id number] #### [facility] [address] [place] [address] CO2 [Moles/Vol] 28 mmol/L Normal 21-31 [facility] Comment on above: Performed By: #### 2 [id number] #### [facility] [address] [place] [address] Creatinine [Mass/Vol] 0.9 mg/dL Normal 0.5-1.3 [facility] Comment on above: Performed By: #### 2 [id number] #### [facility] [address] [place] [address] Globulin (S) [Mass/Vol] 2.7 g/dL Normal 1.4-4.0 [facility] Comment on above: Performed By: #### 2 [id number] #### [facility] [address] [place] [address] Glucose [Mass/Vol] 99 mg/dL Normal 55-199 [facility] Comment on above: Performed By: #### 2 [id number] #### [facility] [address] [place] [address] Potassium [Moles/Vol] 4.7 mmol/L Normal 3.5-5.3 [facility] Comment on above: Performed By: #### 2 [id number] #### [facility] [address] [place] [address] Protein [Mass/Vol] 7.3 g/dL Normal 6.0-7.8 [facility] Comment on above: Performed By: #### 2 [id number] #### [facility] [address] [place] [address] Sodium [Moles/Vol] 136 mmol/L Normal 135-145 [facility] Comment on above: Performed By: #### 2 [id number] #### [facility] [address] [place] [address] Urea nitrogen [Mass/Vol] 17 mg/dL Normal 5-21 [facility] Comment on above: Performed By: #### 2 [id number] #### [facility] [address] [place] [address] Urea nitrogen/Creatinine [Mass ratio] 19 No Units Normal 10-20 [facility] Comment on above: Performed By: #### 2 [id number] #### [facility] [address] [place] [address] Family Medicine Office/Clini c Noteon 10-11-2024 Family Medicine Office/Clinic Note Family Medicine Office/Clinic Note Chief Complaint Annual Wellness HPI Staff Mejia is a 64 year old male presenting for full PE Health Maintenance: Colonoscopy: no PSA: no Last Labs: no History of Present Illness Pt here for CPE. NO issues. Found to have a hydrocele and not a hernia. Review of Systems PHQ Score Initial Depression Screen Score: 0 SCORE Physical Exam Vitals & Measurements T: 37.1 ???C(Tympanic) HR: 67(Peripheral) RR: 18 BP: 128/82 SpO2: 100% HT: 73 in HT: 185.7 cm WT: 72.9 kg WT: 160.717 lb BMI: 21.14 General: alert, no acute distress ENMT: oral mucosa moist, Cardiovascular: regular rate and rhythm, normal peripheral perfusion Respiratory: Lungs CTA, respirations non labored Extremities: no deformity, no trauma Neurological: oriented x 4, LOC appropriate for age, CN II-XII intact, motor strength equal & normal bilaterally, speech normal Abdomen: Soft, Nontender, Non-distended, + BS Assessment/Plan 1. Annual wellness visit (Z00.00: Encounter for general adult medical examination without abnormal findings) Anticipatory guidance given. Discussed diet and exercise. Discussed immunizations. Ordered: CBC w/ Auto Diff Comprehensive Metabolic Panel Lipid Panel 2. Cigarette nicotine dependence (F17.210: Nicotine dependence, cigarettes, uncomplicated) CT scan reviewed. WNL. 3. Right hydrocele (N43.3: Hydrocele, unspecified) Follow up with Urology. Follow-up No qualifying data available Problem List/Past Medical History Ongoing Annual wellness visit BMI 21.0-21.9, adult Cigarette nicotine dependence Right hydrocele Historical No qualifying data Procedure/Surgical History Hydrocelectomy (01/20/2018), Repair of left inguinal hernia. Medications No active medications Allergies No Known Allergies No Known Medication Allergies Social History Alcohol Current. Beer. 1-2 times per week., 09/02/2024 Substance Abuse Previous treatment: Outpatient., 10/11/2024 Tobacco 10 or more cigarettes (1/2 pack or more)/day in last 30 days Tobacco Use:. Never Smokeless Tobacco Use:. Cigarettes, 1 per day. Started age 16.0 Years. Household tobacco concerns: No. Yes, 10/11/2024 Family History Family history is unknown Immunizations Vaccine Date Status SARS-CoV-2 (COVID-19) mRNAMUL.ORD![id number] 06/22/2022 Recorded SARSCoV2 mRNA(zrvrufsfr-riam-ztscc s) vac 02/23/2022 Recorded SARS-CoV-2 (COVID-19) mRNA BNT-162b2 vax 09/25/2021 Recorded SARS-CoV-2 (COVID-19) mRNA BNT-162b2 vax 09/04/2021 Recorded Normal [facility] Comment on above: Result Comment: Elec tronically Signed By: Iftikhar ONOFRE, Vinicius Hooker\.br\Date and Time Signed: 10/11/24 10:39 EST HEMATOLOGYOrdered By: SYSTEM SYSTEM on 10-11-2024 Basophils/100 WBC (Bld) 0.4 % Normal 0.0 - 2.0 % Remisol Heme Basophils/Leukocytes Auto (Bld) [Pure # fraction] 0.0 E9/L Normal 0.0 - 0.2 E9/L Remisol Heme Eosinophils (Bld) [#/Vol] 0.1 E9/L Normal 0.0 - 0.5 E9/L Remisol Heme Eosinophils/100 WBC (Bld) 1.8 % Normal 0.0 - 8.0 % Remisol Heme Erythrocyte distribution width (RBC) [Ratio] 13.6 % Normal 10.9 - 14.2 % Remisol Heme Hematocrit (Bld) [Volume fraction] 46.2 % Normal 37.7 - 49.0 % Remisol Heme Hemoglobin (Bld) [Mass/Vol] 15.6 g/dL Normal 13.5 - 17.5 gm/dL Remisol Heme Lymphocytes (Bld) [#/Vol] 1.2 E9/L Normal 1.0 - 4.0 E9/L Remisol Heme Lymphocytes/100 WBC (Bld) 21.5 % Normal 14.0 - 50.0 % Remisol Heme MCH (RBC) [Entitic mass] 30.9 pg Normal 27.0 - 34.0 pg Remisol Heme MCHC (RBC) [Mass/Vol] 33.8 g/dL Normal 31.4 - 36.0 gm/dL Remisol Heme MCV (RBC) [Entitic vol] 91.6 fL Normal 80.0 - 100.0 fL Remisol Heme Monocytes (Bld) [#/Vol] 0.5 E9/L Normal 0.2 - 1.0 E9/L Remisol Heme Monocytes/100 WBC (Bld) 9.1 % Normal 4.0 - 14.0 % Remisol Heme Neutrophils (Bld) [#/Vol] 3.9 E9/L Normal 2.0 - 7.5 E9/L Remisol Heme Neutrophils/100 WBC (Bld) 67.2 % Normal 36.0 - 75.0 % Remisol Heme Platelet 176.0 E9/L Normal 150.0 - 500.0 E9/L Remisol Heme Platelet mean volume (Bld) [Entitic vol] 9.3 fL Normal 6.4 - 10.8 fL Remisol Heme RBC (Bld) [#/Vol] 5.0 E12/L Normal 4.3 - 5.9 E12/L Remisol Heme WBC corrected for nucl RBC Auto (Bld) [#/Vol] 5.8 E9/L Normal 4.0 - 11.0 E9/L Remisol Heme Lipid Panelon 10-11-2024 Cholesterol [Mass/Vol] 205 mg/dL High 120-200 [facility] Comment on above: Performed By: #### 2 [id number] #### [facility] [address] [place] [address] Cholesterol in HDL [Mass/Vol] 63 mg/dL Invalid Interpretation Code [facility] Comment on above: Result Comment: '>= 60 LOW RISK' '<= 40 HIGH RISK' Performed By: #### 2 [id number] #### [facility] [address] [place] [address] Cholesterol in LDL [Mass/Vol] 131 mg/dL High <=129 [facility] Comment on above: Performed By: #### 2 [id number] #### [facility] [address] [place] [address] Cholesterol in VLDL [Mass/Vol] 20 mg/dL Normal 7-40 [facility] Comment on above: Performed By: #### 2 [id number] #### [facility] [address] [place] [address] Triglyceride [Mass/Vol] 98 mg/dL Normal <=149 [facility] Comment on above: Performed By: #### 2 [id number] #### [facility] [address] [place] [address] eGFRon 10-11-2024 eGFR 95 mL/min/1.73 m2 Normal >=59 [facility] Comment on above: Performed By: #### 1 [id number] #### [facility] [address] [place] [address] CT Chest, Low Dose Screening on 09-06-2024 CT Chest, Low Dose Screening Exam Date/Time: 09/01/2024 10:30 EST Reason for Exam: Screening;F17.200 Report IMPRESSION: Lung RADS category 1: Negative. No nodules and/or definitely benign nodules. Continue annual screening with screening CT chest in [address] IMAGING OF THE CHEST WITHOUT INTRAVENOUS CONTRAST MEDIUM. HISTORY: Tobacco use. TECHNICAL FACTORS: Low dose CT imaging of the chest was obtained and formatted as 2.5 mm contiguous axial images from the thoracic inlet through the adrenal glands. Sagittal and coronal reconstructions obtained during postprocessing. Intravenous contrast medium: None. Comparison: None FINDINGS: Right lung: No nodules, masses, consolidation, pleural effusion, pneumothorax. Apical fibrosis. Emphysema. Left lung: No nodules, masses, consolidation, pleural effusion, pneumothorax. Apical fibrosis. Emphysema. Lymph nodes: No hilar, mediastinal, or axillary lymph node enlargement. Thoracic aorta: Normal in course and caliber. Cardiac: Size normal. No pericardial effusion. Coronary artery calcification identified. Upper abdomen:Limited imaging upper abdomen shows punctate calcifications within spleen. Musculoskeletal:No osteoblastic, and no osteolytic lesions. All CT scans at this facility use dose modulation, iterative reconstruction, and/or Report weight based dosing when appropriate to reduce radiation dose to as low as reasonably achievable. Ordering Provider: Vinicius Buitrago FINAL REPORT Dictated: 09/06/2024 2:36 pm Adolph Maharaj MD Signed (Electronic Signature): 09/06/2024 2:36 pm Signed by: Adolph Maharaj MD Transcribed by: JOSE A Technologist: JUDY Smith [facility] Ambulatory Visit Summaryon 1 10-19-2023 Ambulatory Visit Summary Ambulatory Visit Summary MEJIA ALLEN :1960 Visit Date:08/19/2024 Ambulatory Visit Instructions Your Diagnosis Inguinal hernia, right Smoker Cigarette nicotine dependence Your Care Team Attending Physician - Vinicius Buitrago MD Primary Care Physician - Vinicius Buitrago MD Procedures Performed Surgery, Surgery. Discharge Vitals Temperature (Oral) 36.8 ???C Heart Rate (Peripheral) 74 Respiratory Rate 16 Blood Pressure 128/82 Height 185.7 cm Height 73 in Weight 71.7 kg Weight 158.071 lb BMI 20.79 What to do next Scheduled Follow-Up Appointments Friday 1:00 PM EST With: Vinicius Buitrago MD Where: [facility] [address] [place] [address]- You Need to Complete the Following CT Chest, Low Dose Screening, 08/19/24, Routine, Order for future visit, Transport Mode: Ambulatory, Reason: Screening, Yes, Yes, Yes, 1, 35, Yes, 0, [id number], No, Smoker Cigarette nicotine dependence, pp_set_radiology_subspeci polaJaret vargas - Elan Allergies No Known Medication Allergies Problems Ongoing - Any problem that you are currently receiving treatment for. Cigarette nicotine dependence Inguinal hernia, right Patient Survey You may receive a survey via text or e-mail asking about your office visit. Please share your experience with us by completing your survey. We appreciate your feedback and thank you for choosing us for your care. Normal [facility] Medicine Office/Clini c Noteon 08-19-2024 Family Medicine Office/Clinic Note Family Medicine Office/Clinic Note HPI Staff Michael is a 64 year old male presenting to [facility] Establish Care: History: previous issue with the fluid in scrotum (? hydroceole) Any previous diagnosis: hemorrhoids, had surgery History of seeing any specialist: none When was your last doctors visit: few years Last provider: Dr Finch (robert) Any recent labs: none Health Maintenance UTD: Colonoscopy: never PSA: none Acute: fluid in his srotum, has pain in the right groin area from the fluid in the scrotum Current issues/complaints: History of Present Illness See staff HPI. Review of Systems PHQ Score Initial Depression Screen Score: 0 SCORE Physical Exam Vitals & Measurements T: 36.8 ???C(Oral) HR: 74(Peripheral) RR: 16 BP: 128/82 SpO2: 99% HT: 73 in HT: 185.7 cm WT: 71.7 kg WT: 158.071 lb BMI: 20.79 General: alert, no acute distress ENMT: oral mucosa moist, Cardiovascular: regular rate and rhythm, normal peripheral perfusion Respiratory: Lungs CTA, respirations non labored Extremities: no deformity, no trauma Large inguinal hernia without incarceration. Neurological: oriented x 4, LOC appropriate for age, CN II-XII intact, motor strength equal & normal bilaterally, speech normal Abdomen: Soft, Nontender, Non-distended, + BS Assessment/Plan 1. Inguinal hernia, right (K40.90: Unilateral inguinal hernia, without obstruction or gangrene, not specified as recurrent) NO signs of incarceration. Nonreducible and causing pain. Will send to for repair. Hx of Hernia on that side repaired as a kid. Precautions discussed. 2. Smoker (F17.200: Nicotine dependence, unspecified, uncomplicated) Please stop smoking Ordered: Body Mass Index (BMI) documented 3008F CT Chest, Low Dose Screening Current tobacco smoker 1034F Depression Screening Negative 3352F Most recent diastolic blood pressure 80-89 mm Hg 3079F Systolic BP <130 mm Hg (Most Recent) 3074F 3. Cigarette nicotine dependence (F17.210: Nicotine dependence, cigarettes, uncomplicated) LDCT ordered. Ordered: CT Chest, Low Dose Screening Follow-up No qualifying data available Problem List/Past Medical History Ongoing Cigarette nicotine dependence Inguinal hernia, right Historical No qualifying data Procedure/Surgical History Surgery, Surgery. Medications No active medications Allergies No Known Medication Allergies Social History Tobacco 10 or more cigarettes (1/2 pack or more)/day in last 30 days Tobacco Use:. Never Smokeless Tobacco Use:., 08/19/2024 Family History Family history is negative Immunizations Vaccine Date Status SARS-CoV-2 (COVID-19) mRNAMUL.ORD![id number] 06/22/2022 Recorded SARSCoV2 mRNA(ukqdqrxyb-jeqw-mfjab s) vac 02/23/2022 Recorded SARS-CoV-2 (COVID-19) mRNA BNT-162b2 vax 09/25/2021 Recorded SARS-CoV-2 (COVID-19) mRNA BNT-162b2 vax 09/04/2021 Recorded Normal [facility] Comment on above: Result Comment: Elec tronically Signed By: Iftikhar ONOFRE, Vinicius Womack.br\Date and Time Signed: 08/19/24 11:11 EST Interval History and Physion 01-20-2018 HIM IP Note OR Blown Film Extrusion Operator Normal [facility] OPERATIVE REPORTon 8 OPERATIVE REPORT [address] [address] OPERATIVE REPORTPATIENT NAME: FRED ALLEN : 1960MED REC NO: [id number] ROOM:ACCOUNT NO: [id number] ADMIT DATE: 01/20/2018PROVIDER: Geo CarrollTE OF PROCEDURE: 01/20/2018PREOPERATIVE DIAGNOSIS: Left hydrocele.POSTOPERATIVE DIAGNOSIS: Left hydrocele.OPERATION PERFORMED: Left hydrocelectomy.SURGEON: Geo OrtizISTANT: None.ANESTHESIA: General.COMPLICATIONS: None.EBL: Minimal.SPECIMENS: Hydrocele sac.DISPOSITION: Stable.PROSTHESIS: None.FINDINGS: 250 mL left hydrocele.INDICATIONS: The patient is a 57-year-old male who had a longstandingleft-sided scrotal swelling. He did have an ultrasound performed, whichshowed hydrocele, here now for hydrocelectomy.OPERATIVE PROCEDURE: The patient was taken back to the operating roomafter informed consent including all risks, benefits, and alternativesobtained. The patient was transferred from his [facility] on to the operatingtable, where he was induced under general anesthesia. He was given IVAncef for preoperative antibiotic prophylaxis to begin the case. He wasprepped and draped in normal sterile fashion. He was placed in supineposition. We identified the hydrocele. We made approximately 4 to 5 cmincision on the left hemiscrotum. This was done with a 15-blade scalpel. We then identified the hydrocele. We were able to deliver this through thescrotal incision. We then opened up the hydrocele. We did drainapproximately 250 mL of clear fluid. The patient did have several cystsassociated with the epididymis. We did open these up as we were withall draining clear fluid. We used the Bovie for hemostasis. Once we hadopened up all the cysts, we then everted the hydrocele sac around the cordand tacked this in place with a 3-0 Vicryl stitch. We then placed thetesticle and cord back into the scrotum in anatomic lie. We did use theBovie cautery for hemostasis. We then closed the dartos with a running 3-0Vicryl stitch. We then closed the skin with a subcuticular 4-0 Monocryl. Further dressed with Dermabond. He then had a scrotal support placed. Wedid use 1% lidocaine for local anesthetic. He was then awoken from generalanesthesia, transferred to [facility], taken to the PACU in satisfactorycondition by Nursing and Anesthesia teams.PLAN: The patient will be discharged home per PACU criteria. Follow upwith us in 2 weeks for wound check.GEO SIEGELSTELLAD: 01/20/2018 12:50:26 [id number]#: [id number] Doc#: [id number]: Normal [facility] Op Noteon 01-20-2018 HIM IP Note OR Blown Film Extrusion Operator [facility] Progress Noteon 01-20-2018 HIM IP Note OR Blown Film Extrusion Operator [facility] HIM IP Note OR Blown Film Extrusion Operator [facility] Surgical Pathologyon 018 Surgical Pathology (NOTE)[id number] LABORATORIESCONSULTING PATHOLOGISTS [facility] PSYCHIATRIC CENTERANATOMIC EYOXOALPT[address] [place], [place] [id number] Fax: SURGICAL PATHOLOGY CONSULTATIONPatient Name: [facility] Rec: [id number] Number: [id number]: 01/20/2018Received: 01/21/2018Reported: 01/22/2018 08:19-- Diagnosis --Left inguinal region: Hydrocele sac. Prema GrimaldoElectronically Signed Out rdd/01/22/2018Clinical InformationPre-op Diagnosis: HYDROCELE Operative Findings: HYDROCELE SAC FROM LEFT SIDEOperation Performed: HYDROCELECTOMYSource of Specimen1: LEFT HYDROCELE SACGross Description FRED GREEN, LEFT HYDROCELE SAC A 7.5 x 2.5 x 1.0 cm translucentportion of thin alarcon-vaqsuez fibromembranous tissue with no masses. Campus Monitor sections 1cs. asMicroscopic DescriptionMicroscopic examination performed. [facility] History and Physicalon 01-19 HIM IP Note OR Blown Film Extrusion Operator [facility] Progress Noteon 01-13-2018 [facility] IP Note OR Blown Film Extrusion Operator [facility] Vital Signs Date Time Vital Sign Value Performing Clinician Dash solis 12-31-2024 10:43-0400 Blood Pressure Location Young CodeNgo [facility] 12-31-2024 10:43-0400 Diastolic blood pressure 73 mm[Hg] Young Chambers [facility] 12-31-2024 10:43-0400 Heart rate 77 /min Young Chambers [facility] 12-31-2024 10:43-0400 Respiratory rate 18 /min Young Chambers [facility] 12-31-2024 10:43-0400 SaO2% (BldA) [Mass fraction] 99 % Young Chambers [facility] 12-31-2024 10:43-0400 Systolic blood pressure 114 mm[Hg] Young Chambers [facility] 12-15-2024 14:25-0400 Blood Pressure Location Kai Kirnus [facility] 12-15-2024 14:25-0400 Diastolic blood pressure 78 mm[Hg] Kai Kirnus [facility] 12-15-2024 14:25-0400 Heart rate 90 /min Kai Kirnus [facility] 12-15-2024 14:25-0400 Respiratory rate 18 /min Kai Kirnus [facility] 12-15-2024 14:25-0400 SaO2% (BldA) [Mass fraction] 96 % Kai Kirnus [facility] 12-15-2024 14:25-0400 Systolic blood pressure 113 mm[Hg] Kai Kirnus [facility] 11-08-2024 11:02-0500 Blood Pressure Location Quincy HERNANDEZ [facility] 11-08-2024 11:02-0500 Body temperature 98.6 [degF] Quincy HERNANDEZ [facility] 11-08-2024 11:02-0500 Diastolic blood pressure 74 mm[Hg] Quincy HERNANDEZ [facility] 11-08-2024 11:02-0500 Heart rate 74 /min Quincy HERNANDEZ [facility] 11-08-2024 11:02-0500 Systolic blood pressure 138 mm[Hg] Quincy HERNANDEZ [facility] 09-07-2024 14:16-0500 Blood Pressure Location Elliot NILL [facility] 09-07-2024 14:16-0500 Diastolic blood pressure 84 mm[Hg] Elliot NILL [facility] 09-07-2024 14:16-0500 Heart rate 87 /min Elliot NILL [facility] 09-07-2024 14:16-0500 Respiratory rate 16 /min Elliot NILL [facility] 09-07-2024 14:16-0500 Systolic blood pressure 131 mm[Hg] Elliot NILL [facility] Encounters Encounter Date Encounter Type Care Provider Facility Start: 01-17-2025 ambulatory Quincy Recinos ty:[facility] Start: 01-04-2025 End: 01-04-2025 ambulatory MD Kai Ba Facility:[facility] Start: 01-04-2025 End: 01-04-2025 Patient encounter procedure Kai Ba [facility] Start: 12-31-2024 End: 01-01-2025 ambulatory MD Young Sung Facility:[facility] Start: 12-31-2024 End: 01-01-2025 Patient encounter procedure Young Sung [facility] Start: 12-28-2024 End: 12-29-2024 ambulatory MD Kai Ba Facility:[facility] Start: 12-28-2024 End: 12-29-2024 Patient encounter procedure Kai Ba [facility] Start: 12-17-2024 Evaluation and manag ement of inpatient Hina L Birgit Facility:[facility] Start: 12-15-2024 End: 12-16-2024 ambulatory Quincy HERNANDEZ Facility:[id number] Start: 12-15-2024 End: 12-16-2024 Patient encounter procedure Hina L Birgit [facility] Start: 12-15-2024 End: 12-16-2024 Preprocedural examination done Kai Ba [facility] Start: 12-06-2024 End: 12-06-2024 ambulatory Vinicius Buitrago Facility:[facility] Start: 12-06-2024 ambulatory Quincy HERNANDEZ Facility : [facility] Start: 12-02-2024 End: 12-02-2024 ambulatory Hina L Birgit Facility:[facility] Start: 11-08-2024 End: 11-08-2024 ambulatory Quincy HERNANDEZ Facility:[facility] [place] Start: 11-08-2024 End: 11-08-2024 Lab Drop off Quincy HERNANDEZ [facility] Start: 11-08-2024 End: 11-08-2024 ambulatory Elliot WELCH Facility:[facility] Start: 11-08-2024 End: 11-08-2024 Patient encounter procedure Quincy HERNANDEZ [facility] Start: 10-11-2024 End: 10-11-2024 Lab Drop off Vinicius Buitrago [facility] Start: 10-11-2024 End: 10-11-2024 ambulatory [facility]inicius Buitrago [facility] Start: 09-07-2024 End: 09-07-2024 ambulatory Vinicius MorenoRome [facility]uit[facility]ago [facility] Start: 09-07-2024 End: 09-07-2024 Patient encounter procedure Elliot WELCH [facility] Start: 09-01-2024 End: 09-01-2024 ambulatory Vinicius ERome Buitrago Facility:[facility] Start: 09-01-2024 End: 09-01-2024 Patient encounter procedure Vinicius Buitrago [facility] Start: 08-20-2024 ambulatory [facility]inicius [facility]uitrago [facility] Start: 08-19-2024 End: 08-19-2024 ambulatory Vinicius E. Iftikhar [facility] Start: 01-20-2018 End: 01-20-2018 Ambulatory [facility] Start: 01-13-2018 End: 01-14-2018 [facility] Procedures Date Procedure Procedure Detail Performing Clinician Start: 01-20-2018 DISCHARGE PATIENT LUKE ALISTAIR STOCKTON Start: 01-20-2018 SURGICAL PATHOLOGY JAKY ANY MAHIN Start: 01-20-2018 BEDREST TRACI JACOBS Start: 01-20-2018 Continuous pulse oximetry TRACI STOCKTON Start: 01-20-2018 INITIATE OXYGEN THER APY PROTOCOL TRACI STOCKTON Start: 01-20-2018 NOTIFY PHYSICIAN (SPECIFY) TRACI STOCKTON Start: 01-20-2018 NURSING COMMUNICATION B SUSANA STOCKTON Start: 01-20-2018 REMOVE IV TRACI JACOBS Start: 01-20-2018 VITAL SIGNS TRACI KAUFMANELL Start: 01-20-2018 DIET NPO, NOW TRACIFLOYD BARAHONA Start: 01-20-2018 FULL CODE TRACI KAUFMANELL Start: 01-20-2018 INITIATE OXYGEN THER APY PROTOCOL TRACI STOCKTON Start: 01-20-2018 INSERT PERIPHERAL IV BE GLORIA STOCKTON Start: 01-20-2018 NOTIFY PHYSICIAN (SPECIFY) TRACI STOCKTON Start: 01-20-2018 NURSING COMMUNICATION B SUSANA MAHIN Start: 01-20-2018 PLACE INTERMITTENT P NEUMATIC COMPRESSION DEVICE TRACI STOCKTON Start: 01-20-2018 VERIFY INFORMED CONSENT TRACI STOCKTON Start: 01-20-2018 VITAL SIGNS TRACI KLEVER SHAEELL Start: 01-20-2018 Hydrocelectomy Elliot WELCH Start: 01-13-2018 EKG 12-LEAD TRACI KLEVER ARLENE Hemorrhoidectomy Vinicius Buitrago Repair of left ingui nal hernia Elliot WELCH Surgery (qualifier value) Sa val Buitrago Comment on above: he was unsure what t he surgery was called Plan of Treatment Date Care Activity Detail Author Start: 06-13-2025 ambulatory Ambulatory Facility: [facility] Immunizations Immunization Date Immunization Notes Care Provider Fa [facility] 06-22-2022 SARS-CoV-2 (COVID-19 ) mRNAMUL.[id number] Vinicius Buitrago [facility] 02-23-2022 SARS-CoV-2 mRNA (bogvazoghkt-lgfh-wzuez se) vaccine Vinicius Buitrago [facility] 09-25-2021 SARS-CoV-2 (COVID-19 ) mRNA BNT-162b2 martha Buitrago [facility] 09-04-2021 SARS-CoV-2 (COVID-19 ) mRNA BNT-162b2 ohx Vinicius Buitrago [facility] Payers Date Payer Category Payer Unknown [id number] 2024 Unknown [id number] 2015 Unknown [id number] 1960 Unknown [id number] 2.16.8 [id number] 1960 Unknown [id number] 2.16.8 40.1.946284.3.579.2.727 1960 Unknown [id number] 2.16.8 40.1.143536.3.579.2.727 1960 Unknown [id number] 2.16.8 40.1.762198.3.579.2.727 1960 Unknown [id number] 2.16.8 40.1.759738.3.579.2.727 1960 Unknown [id number] 2.16.8 40.1.211190.3.579.2.727 1960 Unknown [id number] 2.16.8 40.1.823606.3.579.2.727 1960 Unknown [id number] 2.16.8 40.1.724640.3.579.2.727 1960 Unknown [id number] 2.16.8 40.1.230181.3.579.2.727 1960 Unknown [id number] 2.16.8 40.1.337923.3.579.2.727 1960 Unknown [id number] 2.16.8 40.1.033963.3.579.2.727 1960 Unknown [id number] 2.16.8 40.1.267264.3.579.2.727 1960 Unknown [id number] 2.16.8 40.1.354044.3.579.2.727 1960 Unknown [id number] 2.16.8 40.1.472819.3.579.2.727 1960 Unknown [id number] 2.16.8 40.1.528517.3.579.2.727 1960 Unknown [id number] 2.16.8 40.1.478260.3.579.2.727 1960 Unknown [id number] 2.16.8 40.1.884028.3.579.2.727 1960 Unknown [id number] 2.16.8 40.1.346623.3.579.2.727 Social History Date Type Detail Facility Start: 08-19-2024 End: 12-31-2024 Tobacco smoking status Heavy tobacco smoker (finding) [facility] Tobacco smoking status Never [facility] Sex Assigned At Male [facility] Sexual Orientation [facility] Sex Male (finding) [facility] Functional Status Date Assessment Result Facility 12-31-2024 Functional Status N/A [facility] 12-15-2024 Functional Status N/A [facility] 11-08-2024 Functional Status N/A [facility] 09-07-2024 Functional Status N/A [facility] Clinical Notes 09-07-2024 to 12-31-2024 LaboratoryRadiologyLaboratoryRadiologyLaboratoryRadiologyLaboratory Note Date & Type Note Facility 12-31-2024 Hospital Discharge instructions Patient Education 12/31/2024 11:21:54 Steps to Quit Smoking, Oftc-va-Rvut Steps to Quit Smoking Smoking tobacco is the leading cause of preventable . It can affect almost every organ in the body. Smoking puts you and people around you at risk for many serious, long-lasting (chronic) diseases. Quitting smoking can be hard, but it is one of the best things that you can do for your health. It is never too late to quit. Do not give up if you cannot quit the first time. Some people need to try many times to quit. Do your best to stick to your quit plan, and talk with your doctor if you have any questions or concerns. How do I get ready to quit? Pick a date to quit. Set a date within the next 2 weeks to give you time to prepare. Write down the reasons why you are quitting. Keep this list in places where you will see it often. Tell your family, friends, and co-workers that you are quitting. Their support is important. Talk with your doctor about the choices that may help you quit. Find out if your health insurance will pay for these treatments. Know the people, places, things, and activities that make you want to smoke (triggers). Avoid them. What first steps can I take to quit smoking? Throw away all cigarettes at home, at work, and in your car. Throw away the things that you use when you smoke, such as ashtrays and lighters. Clean your car. Empty the ashtray. Clean your home, including curtains and carpets. What can I do to help me quit smoking? Talk with your doctor about taking medicines and seeing a counselor. You are more likely to succeed when you do both. If you are or : Talk with your doctor about counseling or other ways to quit smoking. Do not take medicine to help you quit smoking unless your doctor tells you to. Quit right away Quit smoking completely, instead of slowly cutting back on how much you smoke over a period of time. Stopping smoking right away may be more successful than slowly quitting. Go to counseling. In-person is best if this is an option. You are more likely to quit if you go to counseling sessions regularly. Take medicine You may take medicines to help you quit. Some medicines need a prescription, and some you can buy lvog-xgg-gnadcry. Some medicines may contain a drug called nicotine to replace the nicotine in cigarettes. Medicines may: Help you stop having the desire to smoke (cravings). Help to stop the problems that come when you stop smoking (withdrawal symptoms). Your doctor may ask you to use: Nicotine patches, gum, or lozenges. Nicotine inhalers or sprays. Non-nicotine medicine that you take by mouth. Find resources Find resources and other ways to help you quit smoking and remain smoke-free after you quit. They include: Online chats with a counselor. Phone quitlines. Printed self-help materials. Support groups or group counseling. Text messaging programs. Mobile phone apps. Use apps on your mobile phone or tablet that can help you stick to your quit plan. Examples of free services include Quit Guide from the CDC and smokefree.gov What can I do to make it easier to quit? Talk to your family and friends. Ask them to support and encourage you. Call a phone quitline, such as 1-319-GBIX-NOW, reach out to support groups, or work with a counselor. Ask people who smoke to not smoke around you. Avoid places that make you want to smoke, such as: ?Bars. ?Parties. ?Smoke-break areas at work. Spend time with people who do not smoke. Lower the stress in your life. Stress can make you want to smoke. Try these things to lower stress: ?Getting regular exercise. ?Doing deep-breathing exercises. ?Doing yoga. ?Meditating. What benefits will I see if I quit smoking? Over time, you may have: A better sense of smell and taste. Less coughing and sore throat. A slower heart rate. Lower blood pressure. Clearer skin. Better breathing. Fewer sick days. Summary Quitting smoking can be hard, but it is one of the best things that you can do for your health. Do not give up if you cannot quit the first time. Some people need to try many times to quit. When you decide to quit smoking, make a plan to help you succeed. Quit smoking right away, not slowly over a period of time. When you start quitting, get help and support to keep you smoke-free. This information is not intended to replace advice given to you by your health care provider. Make sure you discuss any questions you have with your health care provider. Document Revised: 09/06/2022 Document Reviewed: 09/06/2022 [employer] Patient Education 2023 [employer]. 12/31/2024 11:21:50 Health Risks of Smoking Health Risks of Smoking Smoking tobacco is very bad for your health. Tobacco smoke contains many toxic chemicals that can damage every part of your body. Secondhand smoke can be harmful to those around you. Tobacco or nicotine use can cause many long-term (chronic) diseases. Smoking is difficult to quit because a chemical in tobacco, called nicotine, causes addiction or dependence. When you smoke and inhale, nicotine is absorbed quickly into your bloodstream through your lungs. Both inhaled and non-inhaled nicotine may be addictive. How can quitting affect me? There are health benefits of quitting smoking. Some benefits happen right away and others take time. Benefits may include: Blood flow, blood pressure, heart rate, and lung capacity may begin to improve. However, any lung damage that has already occurred cannot be repaired. Respiratory symptoms from smoking, such as nasal congestion and cough, may improve over time. Your risk of heart disease, stroke, and cancer is reduced. The overall quality of your health may improve. You may save money, as you will not spend money on tobacco products and may spend less money on smoking-related health issues. What can increase my risk? Smoking harms nearly every organ in the body. People who smoke tobacco have a shorter life expectancy and an increased risk of many serious medical problems. These include: More respiratory infections, such as colds and pneumonia. Cancer. Heart disease. Stroke. Chronic respiratory diseases. Delayed wound healing and increased risk of complications during surgery. Problems with reproduction, , and childbirth, such as infertility, early (premature) births, stillbirths, and defects. Secondhand smoke exposure to children increases the risk of: Sudden syndrome (SIDS). Infections in the nose, throat, or airways (respiratory infections). Chronic respiratory symptoms. What actions can I take to quit? Smoking is an addiction that affects both your body and your mind, and long-time habits can be hard to change. Your health care provider can recommend: Nicotine replacement products, such as patches, gum, and nasal sprays. Use these products only as directed. Do not replace cigarette smoking with electronic cigarettes, which are commonly called e-cigarettes. The safety of e-cigarettes is not known, and some may contain harmful chemicals. Programs and community resources, which may include group support, education, or talk therapy. Prescription medicines to help reduce cravings. A combination of two or more quit methods, which may increase the success of quitting. Where to find support Follow the recommendations from your health care provider about support groups and other assistance. You can also visit: U.S. Department of Health and Human Services: www.smokefree.gov [employer] Association: www.freedomfromsmoking.org Australian Heart Association: www.heart.org Where to find more information Centers for Disease Control and Prevention: www.cdc.gov World Health Organization: www.who.int Summary Smoking tobacco is very bad for your health. Tobacco smoke contains many toxic chemicals that can damage every part of the body. Smoking is difficult to quit because a chemical in tobacco, called nicotine, causes addiction or dependence. There are immediate and long-term health benefits of quitting smoking. A combination of two or more quit methods may increase the success of quitting. This information is not intended to replace advice given to you by your health care provider. Make sure you discuss any questions you have with your health care provider. Document Revised: 09/17/2022 Document Reviewed: 09/17/2022 [employer] Patient Education 2023 [employer]. 12/31/2024 11:21:47 Atrial Fibrillation, Ooqq-mt-Pzld Atrial Fibrillation Atrial fibrillation (AFib) is a type of heartbeat that is irregular or fast. If you have AFib, your heart beats without any order. This makes it hard for your heart to pump blood in a normal way. AFib may come and go, or it may become a long-lasting problem. If AFib is not treated, it can put you at higher risk for stroke, heart failure, and other heart problems. What are the causes? AFib may be caused by diseases that damage the heart's electrical system. They include: High blood pressure. Heart failure. Heart valve diseases. Heart surgery. Diabetes. Thyroid disease. Kidney disease. Lung diseases, such as pneumonia or COPD. Sleep apnea. Sometimes the cause is not known. What increases the risk? You are more likely to develop AFib if: You are older. You exercise often and very hard. You have a family history of AFib. You are male. You are . You are overweight. You smoke. You drink a lot of alcohol. What are the signs or symptoms? Common symptoms of this condition include: A feeling that your heart is beating very fast. Chest pain or discomfort. Feeling short of breath. Suddenly feeling light-headed or weak. Getting tired easily during activity. Fainting. Sweating. In some cases, there are no symptoms. How is this treated? Medicines to: ?Prevent blood clots. ?Treat heart rate or heart rhythm problems. Using devices, such as a pacemaker, to correct heart rhythm problems. Doing surgery to remove the part of the heart that sends bad signals. Closing an area where clots can form in the heart (left atrial appendage). In some cases, your doctor will treat other underlying conditions. Follow these instructions at home: Medicines Take uapt-ltz-vthaxhj and prescription medicines only as told by your doctor. Do not take any new medicines without first talking to your doctor. If you are taking blood thinners: ?Talk with your doctor before taking aspirin or NSAIDs, such as ibuprofen. ?Take your medicines as told. Take them at the same time each day. ?Do not do things that could hurt or bruise you. Be careful to avoid falls. ?Wear an alert bracelet or carry a card that says you take blood thinners. Lifestyle Do not smoke or use any products that contain nicotine or tobacco. If you need help quitting, ask your doctor. Eat heart-healthy foods. Talk with your doctor about the right eating plan for you. Exercise regularly as told by your doctor. Do not drink alcohol. Lose weight if you are overweight. General instructions If you have sleep apnea, treat it as told by your doctor. Do not use diet pills unless your doctor says they are safe for you. Diet pills may make heart problems worse. Keep all follow-up visits. Your doctor will check your heart rate and rhythm regularly. Contact a doctor if: You notice a change in the speed, rhythm, or strength of your heartbeat. You are taking a blood-thinning medicine and you get more bruising. You get tired more easily when you move or exercise. You have a sudden change in weight. Get help right away if: You have pain in your chest. You have trouble breathing. You have side effects of blood thinners, such as blood in your vomit, poop (stool), or pee (urine), or bleeding that cannot stop. You have any signs of a stroke. BE FAST is an easy way to remember the main warning signs: ?B - Balance. Dizziness, sudden trouble walking, or loss of balance. ?E - Eyes. Trouble seeing or a change in how you see. ?F - Face. Sudden weakness or loss of feeling in the face. The face or eyelid may droop on one side. ?A - Arms.Weakness or loss of feeling in an arm. This happens suddenly and usually on one side of the body. ?S - Speech. Sudden trouble speaking, slurred speech, or trouble understanding what people say. ?T - Time.Time to call emergency services. Write down what time symptoms started. You have other signs of a stroke, such as: ?A sudden, very bad headache with no known cause. ?Feeling like you may vomit (nausea). ?Vomiting. ?A seizure. These symptoms may be an emergency. Get help right away. Call 911. Do not wait to see if the symptoms will go away. Do not drive yourself to the hospital. This information is not intended to replace advice given to you by your health care provider. Make sure you discuss any questions you have with your health care provider. Document Revised: 06/04/2023 Document Reviewed: 06/04/2023 [employer] Patient Education 2023 [employer]. Follow Up Care 12/15/2024 14:53:14 With:Ana Lilia ONOFRE, Young W, CAR Address: [address] [place] [address]. [place] [address]- When:2 weeks [facility] 12-31-2024 Note Patient Education - Text Cardiovascular Atrial Fibrillation Atrial fibrillation (AFib) is a type of heartbeat that is irregular or fast. If you have AFib, your heart beats without any order. This makes it hard for your heart to pump blood in a normal way. AFib may come and go, or it may become a long-lasting problem. If AFib is not treated, it can put you at higher risk for stroke, heart failure, and other heart problems. What are the causes? AFib may be caused by diseases that damage the heart's electrical system. They include: ??? High blood pressure. ??? Heart failure. ??? Heart valve diseases. ??? Heart surgery. ??? Diabetes. ??? Thyroid disease. ??? Kidney disease. ??? Lung diseases, such as pneumonia or COPD. ??? Sleep apnea. Sometimes the cause is not known. What increases the risk? You are more likely to develop AFib if: ??? You are older. ??? You exercise often and very hard. ??? You have a family history of AFib. ??? You are male. ??? You are . ??? You are overweight. ??? You smoke. ??? You drink a lot of alcohol. What are the signs or symptoms? Common symptoms of this condition include: ??? A feeling that your heart is beating very fast. ??? Chest pain or discomfort. ??? Feeling short of breath. ??? Suddenly feeling light-headed or weak. ??? Getting tired easily during activity. ??? Fainting. ??? Sweating. In some cases, there are no symptoms. How is this treated? Medicines to: ? Prevent blood clots. ? Treat heart rate or heart rhythm problems. ??? Using devices, such as a pacemaker, to correct heart rhythm problems. ??? Doing surgery to remove the part of the heart that sends bad signals. ??? Closing an area where clots can form in the heart (left atrial appendage). In some cases, your doctor will treat other underlying conditions. Follow these instructions at home: Medicines ??? Take eeop-iie-fgyhbwv and prescription medicines only as told by your doctor. ??? Do not take any new medicines without first talking to your doctor. ??? If you are taking blood thinners: ? Talk with your doctor before taking aspirin or NSAIDs, such as ibuprofen. ? Take your medicines as told. Take them at the same time each day. ? Do not do things that could hurt or bruise you. Be careful to avoid falls. ? Wear an alert bracelet or carry a card that says you take blood thinners. Lifestyle ??? Do not smoke or use any products that contain nicotine or tobacco. If you need help quitting, ask your doctor. ??? Eat heart-healthy foods. Talk with your doctor about the right eating plan for you. ??? Exercise regularly as told by your doctor. ??? Do not drink alcohol. ??? Lose weight if you are overweight. General instructions ??? If you have sleep apnea, treat it as told by your doctor. ??? Do not use diet pills unless your doctor says they are safe for you. Diet pills may make heart problems worse. ??? Keep all follow-up visits. Your doctor will check your heart rate and rhythm regularly. Contact a doctor if: ??? You notice a change in the speed, rhythm, or strength of your heartbeat. ??? You are taking a blood-thinning medicine and you get more bruising. ??? You get tired more easily when you move or exercise. ??? You have a sudden change in weight. Get help right away if: ??? You have pain in your chest. ??? You have trouble breathing. ??? You have side effects of blood thinners, such as blood in your vomit, poop (stool), or pee (urine), or bleeding that cannot stop. ??? You have any signs of a stroke. BE FAST is an easy way to remember the main warning signs: ? B - Balance. Dizziness, sudden trouble walking, or loss of balance. ? E - Eyes. Trouble seeing or a change in how you see. ? F - Face. Sudden weakness or loss of feeling in the face. The face or eyelid may droop on one side. ? A - Arms.Weakness or loss of feeling in an arm. This happens suddenly and usually on one side of the body. ? S - Speech. Sudden trouble speaking, slurred speech, or trouble understanding what people say. ? T - Time.Time to call emergency services. Write down what time symptoms started. ??? You have other signs of a stroke, such as: ? A sudden, very bad headache with no known cause. ? Feeling like you may vomit (nausea). ? Vomiting. ? A seizure. These symptoms may be an emergency. Get help right away. Call 911. ??? Do not wait to see if the symptoms will go away. ??? Do not drive yourself to the hospital. This information is not intended to replace advice given to you by your health care provider. Make sure you discuss any questions you have with your health care provider. Document Revised: 06/04/2023 Document Reviewed: 06/04/2023 [employer] Patient Education ? 2023 [employer] Pulmonary Medicine Steps to Quit Smoking Smoking tobacco is the leading cause of preventable (more content not included)... [facility] 12-28-2024 Note Echocardiology Procedure Exam Date/Time Accession # Ordering Dr. Caraballo Transthoracic 12/28/2024 11:24 EDT [id number] Jesenia ONOFRE, Kai Handy Complete CPT code 51549 [id number] Reason for Exam (Echo Transthoracic Complete) I48.91;Other (please specify) Report [facility] [address] [place] [address] Adult Echocardiogram Report Name: MEJIA ALLEN Study Date: 12/28/2024 10:33 AM BP: 122/83 mmHg Patient Location: [facility] [facility] HR: 82 : 1960 Gender: Male Height: 74 in Age: 64 yrs Ethnicity: [facility] Weight: 168 lb Reason For Study: I48.91;Other (please specify) BSA: 2.0 m2 History: Smoker-Yes,Atrial Fibrillation,Pre op testing Ordering Physician: Jesenia^Kai^Ole Referring Physician: Kai Ba Performed By: Savannah Lee, RACHIDMS, RVT Interpretation Summary Left ventricular systolic function is mildly reduced. Ejection Fraction = 45-50%. There is mild global hypokinesis of the left ventricle. There is mild mitral regurgitation. There is mild tricuspid regurgitation. There is moderate pulmonary hypertension. Estimated RVSP is 45-50 mmHg. Procedure A complete two-dimensional transthoracic echocardiogram was performed (2D, M-mode, spectral and color flow Doppler). Left Ventricle The left ventricle is normal in size. There is normal left ventricular wall thickness. Left ventricular systolic function is mildly reduced. Ejection Fraction = 45-50%. There is mild global hypokinesis of the left ventricle. Indeterminate DF. Echocardiology Report Left Atrium The left atrial size is normal. There is no atrial septal defect. Right Atrium Right atrial size is normal. Right Ventricle The right ventricular systolic function is normal. The right ventricle is normal size. Aortic Valve The trileaflet aortic valve opening is normal. No aortic regurgitation. There is no aortic stenosis. Mitral Valve Mitral valve structure is normal. There is mild mitral regurgitation. No mitral valve stenosis. Tricuspid Valve The tricuspid valve is grossly normal. There is mild tricuspid regurgitation. There is moderate pulmonary hypertension. Estimated RVSP is 45-50 mmHg. No evidence of tricuspid stenosis. Pulmonic Valve NWV. There is no pulmonic valve regurgitation. No evidence of stenosis. Arteries The aortic root is normal in size. The ascending aorta was not well visualized on this exam. Venous The IVC is mildly dilated with an abnormal respiratory collapse, suggestive of increased right atrial pressure. Effusion Trivial pericardial effusion, not hemodynamically significant. MMode/2D Measurements & Calculations RVDd: 2.6 cm LVIDd: 4.8 cm FS: 20.8 % Ao root diam: 2.5 cm IVSd: 0.92 cm LVIDs: 3.8 cm EDV(Teich): 106.0 ml Ao root area: 4.8 cm2 LVPWd: 1.1 cm ESV(Teich): 61.1 ml LA dimension: 3.2 cm EF(Teich): 42.3 % LVOT diam: 2.0 cm LVLd ap4: 8.5 cm EDV(MOD-sp2): 103.0 ml SV(MOD-sp4): 57.7 ml LVOT area: 3.0 cm2 EDV(MOD-sp4): 105.0 ml ESV(MOD-sp2): 52.8 ml LVLs ap4: 7.3 cm EF(MOD-sp2): 48.7 % ESV(MOD-sp4): 47.3 ml EF(MOD-sp4): 55.0 % TAPSE: 2.1 cm IVC Diam: 2.3 cm RV Base_phl: 3.0 cm RVIDd/LVIDd: 0.55 RV Length_phl: 7.0 cm RV Mid_phl: 2.2 cm EF (MOD-bp): 50.1 % Doppler Measurements & Calculations Echocardiology Report MV E max milad: 88.5 cm/sec MV dec time: 0.19 sec Ao V2 max: 102.8 cm/sec LV V1 max P.4 mmHg Ao max P.3 mmHg LV V1 mean P.0 mmHg Ao V2 mean: 69.5 cm/sec LV V1 max: 78.2 cm/sec Ao mean P.7 mmHg LV V1 mean: 49.3 cm/sec Ao V2 VTI: 18.5 cm LV V1 VTI: 13.5 cm ESTELA(I,D): 2.2 cm2 ESTELA(V,D): 2.3 cm2 MR max milad: 509.6 cm/sec SV(LVOT): 40.8 ml TR max milad: 231.3 cm/sec RAP systole: 8.0 mmHg MR max P.9 mmHg TR max P.5 mmHg RVSP(TR): 29.5 mmHg AV VR: 0.76 ESTELA(VTI)/BSA_phl: 1.0 Measurements from QLAB BSA (): 2.0 m2 ED Mass (HM): 153.0 grams LAEF (HM): 22.0 % NEY (HM): 25.0 ml/m2 LAVmax (HM): 51.0 ml LAVmin (HM): 40.0 ml Pat Height (HM): 188.0 cm Pat Weight (HM): 76.2 kg FINAL REPORT Dictated: 12/28/2024 10:33 am Jesenia ONOFRE, Kai Handy Signed (Electronic Sig (more content not included)... [facility] [place] 11-08-2024 Hospital Discharge instructions Patient Education 11/08/2024 11:33:19 Prostate Cancer Screening Prostate Cancer Screening Prostate cancer screening is testing that is done to check for the presence of prostate cancer in men. The prostate gland is a walnut-sized gland that is located below the bladder and in front of the rectum in males. The function of the prostate is to add fluid to semen during ejaculation. Prostate cancer is one of the most common types of cancer in men. Who should have prostate cancer screening? Screening recommendations vary based on age and other risk factors, as well as between the professional organizations who make the recommendations. In general, screening is recommended if: You are age 50 to 70 and have an average risk for prostate cancer. You should talk with your health care provider about your need for screening and how often screening should be done. Because most prostate cancers are slow growing and will not cause , screening in this age group is generally reserved for men who have a 10- to 15-year life expectancy. You are younger than age 50, and you have these risk factors: ?Having a father, brother, or uncle who has been diagnosed with prostate cancer. The risk is higher if your family member's cancer occurred at an early age or if you have multiple family members with prostate cancer at an early age. ?Being a male who is Black or is of [place] or sub-Saharan descent. In general, screening is not recommended if: You are younger than age 40. You are between the ages of 40 and 49 and you have no risk factors. You are 70 years of age or older. At this age, the risks that screening can cause are greater than the benefits that it may provide. If you are at high risk for prostate cancer, your health care provider may recommend that you have screenings more often or that you start screening at a younger age. How is screening for prostate cancer done? The recommended prostate cancer screening test is a blood test called the prostate-specific antigen (PSA) test. PSA is a protein that is made in the prostate. As you age, your prostate naturally produces more PSA. Abnormally high PSA levels may be caused by: Prostate cancer. An enlarged prostate that is not caused by cancer (benign prostatic hyperplasia, or BPH). This condition is very common in older men. A prostate gland infection (prostatitis) or urinary tract infection. Certain medicines such as male hormones (like testosterone) or other medicines that raise testosterone levels. A rectal exam may be done as part of prostate cancer screening to help provide information about the size of your prostate gland. When a rectal exam is performed, it should be done after the PSA level is drawn to avoid any effect on the results. Depending on the PSA results, you may need more tests, such as: A physical exam to check the size of your prostate gland, if not done as part of screening. Blood and imaging tests. A procedure to remove tissue samples from your prostate gland for testing (biopsy). This is the only way to know for certain if you have prostate cancer. What are the benefits of prostate cancer screening? Screening can help to identify cancer at an early stage, before symptoms start and when the cancer can be treated more easily. There is a small chance that screening may lower your risk of dying from prostate cancer. The chance is small because prostate cancer is a slow-growing cancer, and most men with prostate cancer from a different cause. What are the risks of prostate cancer screening? The main risk of prostate cancer screening is diagnosing and treating prostate cancer that would never have caused any symptoms or problems. This is called overdiagnosisand overtreatment. PSA screening cannot tell you if your PSA is high due to cancer or a different cause. A prostate biopsy is the only procedure to diagnose prostate cancer. Even the results of a biopsy may not tell you if your cancer needs to be treated. Slow-growing prostate cancer may not need any treatment other than monitoring, so diagnosing and treating it may cause unnecessary stress or other side effects. Questions to ask your health care provider When should I start prostate cancer screening? What is my risk for prostate cancer? How often do I need screening? What type of screening tests do I need? How do I get my test results? What do my results mean? Do I need treatment? Where to find more information The [place] [employer]: www.cancer.org [employer] Association: www.auanet.org Contact a health care provider if: You have difficulty urinating. You have pain when you urinate or ejaculate. You have blood in your urine or semen. You have pain in your back or in the area of your prostate. Summary Prostate cancer is a common type of cancer in men. The prostate gland is located below the bladder and in front of the rectum. This gland adds fluid to semen during ejaculation. Prostate cancer screening may identify cancer at an early stage, when the cancer can be treated more easily and is less likely to have spread to other areas of the body. The prostate-specific antigen (PSA) test is the recommended screening test for prostate cancer, but it has associated risks. Discuss the risks and benefits of prostate cancer screening with your health care provider. If you are age 70 or older, the risks that screening can cause are greater than the benefits that it may provide. This information is not intended to replace advice given to you by your health care provider. Make sure you discuss any questions you have with your health care provider. Document Revised: 03/11/2022 Document Reviewed: 03/11/2022 [employer] Patient Education 2023 [employer]. Follow Up Care 10/12/2024 12:41:02 With:ZEFERINO ONOFRE, Quincy Sparrow, URL Address: [facility] [address] , [place] [address]- When: Unknown Comments:Schedule Rt Hydrocelectomy [facility] 11-08-2024 Note Patient Education Oncology Prostate Cancer Screening Prostate cancer screening is testing that is done to check for the presence of prostate cancer in men. The prostate gland is a walnut-sized gland that is located below the bladder and in front of the rectum in males. The function of the prostate is to add fluid to semen during ejaculation. Prostate cancer is one of the most common types of cancer in men. Who should have prostate cancer screening? Screening recommendations vary based on age and other risk factors, as well as between the professional organizations who make the recommendations. In general, screening is recommended if: ??? You are age 50 to 70 and have an average risk for prostate cancer. You should talk with your health care provider about your need for screening and how often screening should be done. Because most prostate cancers are slow growing and will not cause , screening in this age group is generally reserved for men who have a 10- to 15-year life expectancy. ??? You are younger than age 50, and you have these risk factors: ? Having a father, brother, or uncle who has been diagnosed with prostate cancer. The risk is higher if your family member's cancer occurred at an early age or if you have multiple family members with prostate cancer at an early age. ? Being a male who is Black or is of Frank[place] or sub-Saharan descent. In general, screening is not recommended if: ??? You are younger than age 40. ??? You are between the ages of 40 and 49 and you have no risk factors. ??? You are 70 years of age or older. At this age, the risks that screening can cause are greater than the benefits that it may provide. If you are at high risk for prostate cancer, your health care provider may recommend that you have screenings more often or that you start screening at a younger age. How is screening for prostate cancer done? The recommended prostate cancer screening test is a blood test called the prostate-specific antigen (PSA) test. PSA is a protein that is made in the prostate. As you age, your prostate naturally produces more PSA. Abnormally high PSA levels may be caused by: ??? Prostate cancer. ??? An enlarged prostate that is not caused by cancer (benign prostatic hyperplasia, or BPH). This condition is very common in older men. ??? A prostate gland infection (prostatitis) or urinary tract infection. ??? Certain medicines such as male hormones (like testosterone) or other medicines that raise testosterone levels. A rectal exam may be done as part of prostate cancer screening to help provide information about the size of your prostate gland. When a rectal exam is performed, it should be done after the PSA level is drawn to avoid any effect on the results. Depending on the PSA results, you may need more tests, such as: ??? A physical exam to check the size of your prostate gland, if not done as part of screening. ??? Blood and imaging tests. ??? A procedure to remove tissue samples from your prostate gland for testing (biopsy). This is the only way to know for certain if you have prostate cancer. What are the benefits of prostate cancer screening? Screening can help to identify cancer at an early stage, before symptoms start and when the cancer can be treated more easily. ??? There is a small chance that screening may lower your risk of dying from prostate cancer. The chance is small because prostate cancer is a slow-growing cancer, and most men with prostate cancer from a different cause. What are the risks of prostate cancer screening? The main risk of prostate cancer screening is diagnosing and treating prostate cancer that would never have caused any symptoms or problems. This is called overdiagnosisand overtreatment. PSA screening cannot tell you if your PSA is high due to cancer or a different cause. A prostate biopsy is the only procedure to diagnose prostate cancer. Even the results of a biopsy may not tell you if your cancer needs to be treated. Slow-growing prostate cancer may not need any treatment other than monitoring, so diagnosing and treating it may cause unnecessary stress or other side effects. Questions to ask your health care provider ??? When should I start prostate cancer screening? What is my risk for prostate cancer? How often do I need screening? What type of screening tests do I need? How do I get my test results? What do my results mean? Do I need treatment? Where to find more information ??? The [place] Cancer Society: www.cancer.org ??? [employer] Association: www.auanet.org Contact a health care provider if: ??? You have difficulty urinating. ??? You have pain when you urinate or ejaculate. ??? You have blood in your urine or semen. ??? You have pain in your back or in the area of your prostate. Summary ??? Prostate cancer is a common type of cancer in men. The prostate gland (more content not included)... [facility] [place] 09-07-2024 Note General Surgery Offi ce/Clinic Note Chief Complaint consultation for hernia HPI Staff 64 year old male presents on consultation from Dr. Buitrago for right inguinal hernia. Patient reports intermittent right inguinal discomfort and swelling for several years. Denies nausea, vomiting or bowel changes. No imaging completed. History of Present Illness 64 yo male referred for right scrotal swelling/pressure, no change with lying down; some soreness with activity, no skin changes, no N/V or bowel changes; no imaging; patient has h/o left hydrocelectomy for large hydrocele in 2018 in [place]; remote LIHR as a child; no other abd operations; smokes daily, no asa or NSAID use. Review of Systems PHQ Score Initial Depression Screen Score: 0 SCORE ROS - Provider Constitutional: no fever, no sweats, no weight loss. Eyes: no glasses, no blurred vision, no visual loss. ENMT: no dentures, no hoarseness, no swallowing difficulties, no hearing loss, no ear infection(s), no nose bleeds. Cardiovascular: normal blood pressure, no chest pain, regular heartbeat, no heart murmur. Respiratory: no shortness of breath, no cough, no asthma, no wheezing. Gastrointestinal: no nausea, no vomiting, no diarrhea, no constipation, no blood in stool, no change in bowel habits, no abdominal pain, no hepatitis. Genitourinary: no kidney stones, no urine infection, no dysuria. Musculoskeletal: no pain, no weakness. Skin: no changing moles, no rash, no skin lumps. Neurologic: no seizures, no epilepsy, no headache. Psychiatric: no emotional or psychiatric problem. Heme/Lymph: no bleeding problems, no anemia, no blood clots, no transfusions. Allergy/Immunologic: no swollen lymph nodes/glands, no IV drug abuse. Other: Additional ROS info: Except as noted in the above Review of Systems and in the History of Present Illness, all other systems have been reviewed and are negative or noncontributory. Physical Exam Vitals & Measurements HR: 87(Peripheral) RR: 16 BP: 131/84 HT: 73 in HT: 185.7 cm WT: 73 kg WT: 160.937 lb BMI: 21.17 HEENT: normal conjunctiva, sclera clear, no scleral icterus, EOM intact, PERRLA, oral mucosa moist without lesions. Neck: trachea midline, no mass, symmetric, no thyromegaly or nodules, no adenopathy Respiratory: lungs CTA, respirations non labored. Cardiovascular: regular rate and rhythm, no murmur, no pedal edema or varicosities. Gastrointestinal: soft, non distended, no tenderness, no masses, well-healed left groin scar; no palpable hernias, large right scrotal hydrocele, nonreducible; no apparent associated hernia; small recurrent left hydrocele; diastasis recti no, no hepatosplenomegaly; normal bs Lymphatic: no cervical adenopathy, no inguinal adenopathy. Musculoskeletal: normal gait, digits and nails without infection, nodes, cyanosis, clubbing. Skin: no rashes, no lesions, no ulcers, no subcutaneous nodules, induration. Psychiatric/Neuro: oriented to time, place, person, judgement normal, affect appropriate for age, insight intact, no focal deficits. Tests: review of old records completed , Discussed surgical options, risks, and possible complications with patient. Assessment/Plan 1. Right hydrocele (N43.3: Hydrocele, unspecified) plan pelvic ct scan for further evaluation due to groin pain; no apparent associated hernia on exam; will call patient with ct scan results; call sooner if problems/questions. Ordered: CT Pelvis w/ Contrast Follow-up No qualifying data available Problem List/Past Medical History Ongoing Cigarette nicotine dependence Inguinal hernia, right Right hydrocele Historical No qualifying data Procedure/Surgical History Hydrocelectomy (01/20/2018), Repair of left inguinal hernia. Medications No active medications Allergies No Known Allergies No Known Medication Allergies Social History Alcohol Current. Beer. 1-2 times per week., 09/02/2024 Substance Abuse Current, Marijuana, 1-2 times per week, 09/07/2024 Tobacco 10 or more cigarettes (1/2 pack or more)/day in last 30 days Tobacco Use:. Never Smokeless Tobacco Use:. Cigarettes, 1 per day. Started age 16.0 Years., 09/07/2024 Family History Family history is unknown Immunizations Vaccine Date Status SARS-CoV-2 (COVID-19) [id number] 06/22/2022 Recorded SARSCoV2 mRNA(ucowifulh-gjfv-lsfnqn) vac 02/23/2022 Recorded SARS-CoV-2 (COVID-19) mRNA BNT-162b2 vax 09/25/2021 Recorded SARS-CoV-2 (COVID-19) mRNA BNT-162b2 vax 09/04/2021 Recorded [facility] [place] Comment on above: Result Comment: Elec tronically Signed By: MISSY ONOFRE, Elliot Sparrow\.br\Date and Time Signed: 09/07/24 15:05 EST Evaluation + Plan note Future Appointments Appointment Date:09/07/2024 02:40:00 PM Scheduled Provider:Elliot WELCH MD Location:[facility] Appointment Type:GS New 30 Appointment Date:09/14/2024 01:00:00 PM Scheduled Provider:Vinicius Buitrago MD Location:[facility] Appointment Type:[facility] Evaluation + Plan note Future Appointments Appointment Date:09/14/2024 01:00:00 PM Scheduled Provider:Vinicius Buitrago MD Location:[facility] Appointment Type:[facility] General Surgery Gregory Evaluation + Plan note Future Appointments Appointment Date:01/17/2025 09:30:00 AM Scheduled Provider:Quincy HERNANDEZ MD Location:[facility] Appointment Type:URO Office Visit [facility] Evaluation + Plan note Future Appointments Appointment Date:12/28/2024 11:00:00 AM Scheduled Provider: [facility] Type:CV Echo (FT) Appointment Date:12/31/2024 11:00:00 AM Scheduled Provider:Young Sung MD [facility] Type:Cardiology New Patient (FT) Appointment Date:06/13/2025 11:00:00 AM Scheduled Provider:Vinicius Buitrago MD Location:[facility] Appointment Type:FM Open Future Scheduled TestsThyroid Stimulating Hormone 12/15/24Echo Transthoracic Complete 12/28/24 [facility] Evaluation + Plan note Future Appointments Appointment Date:12/31/2024 11:00:00 AM Scheduled Provider:Young Sung MD [facility] Type:Cardiology New Patient (FT) Appointment Date:06/13/2025 11:00:00 AM Scheduled Provider:Vinicius Buitrago MD Location:[facility] Appointment Type: Open Future Scheduled TestsThyroid Stimulating Hormone 12/15/24NM Myocardial Spect Rest/Stress 1 Day 12/30/24 [facility] Evaluation + Plan note Future Appointments Appointment Date:01/04/2025 01:00:00 PM Scheduled Provider: [facility] App[facility] Type:NM Myocard Spect Multi Rest/Stress-Res Appointment Date:01/04/2025 02:00:00 PM Scheduled Provider: [facility] App[facility] Type:NM Myocard Spect Multi Rest/Stress - R Appointment Date:01/04/2025 02:30:00 PM Scheduled Provider: [facility] App[facility] Type:NM Myocard Spect Multi Rest/Stress-Str Appointment Date:01/04/2025 03:30:00 PM Scheduled Provider: [facility] App[facility] Type:NM Myocar Spect Multi Rest/Stress - St Appointment Date:01/14/2025 10:30:00 AM Scheduled Provider:Young Sung MD [facility] Type:Cardiology Follow Up (FT) Appointment Date:06/13/2025 11:00:00 AM Scheduled Provider:Vinicius Buitrago MD Location:[facility] Appointment Type: Open Future Scheduled TestsThyroid Stimulating Hormone 12/15/24NM Myocardial Spect Rest/Stress 1 Day 01/04/25 [facility] Evaluation + Plan note Future Appointments Appointment Date:01/14/2025 10:30:00 AM Scheduled Provider:Young Sung MD Location[facility] Appointment Type:Cardiology Follow Up (FT) Appointment Date:06/13/2025 11:00:00 AM Scheduled Provider:[facility]: Open Future Scheduled TestsThyroid Stimulating Hormone 12/15/24 [facility] Hospital course Narrative No data available for this section [facility] Hospital Discharge instructions No data available for this section [facility] Progress note No data available for this section [facility] Summary Purpose Family History No Family History Records Found No data available for this section No data available for this section No data available for this section No Family History Records FoundNo Family History Records FoundNo Family History Records FoundNo Family History Records Found No data available for this section No data available for this section No Family History Records Found No data available for this section No data available for this section No data available for this section No data available for this section No data available for this section No Family History Records Found Advance Directives No Advanced Directives Records FoundNo Advanced Directives Records FoundNo Advanced Directives Records FoundNo Advanced Directives Records FoundNo Advanced Directives Records FoundNo Advanced Directives Records FoundNo Advanced Directives Records Found Additional Source Comments (unrecognized sect ion and content) No Status Records FoundNo Status Records FoundNo Status Records FoundNo Status Records FoundNo Status Records FoundNo Status Records FoundNo Status Records Found INFORMATION SOURCE (unrecogn ized section and content) DATE CREATED AUTHOR 04/02/2018 [facility] DATE CREATED AUTHOR AUTHOR'S ORGANIZ ATION 10/13/2024 [facility] DATE CREATED AUTHOR AUTHOR'S ORGANIZ ATION 10/15/2024 [facility] DATE CREATED AUTHOR AUTHOR'S ORGANIZ ATION 11/13/2024 [facility] DATE CREATED AUTHOR AUTHOR'S ORGANIZ ATION 01/08/2025 [facility] Patient Care team informatio n (unrecognized section and content) Personnel Name: Vinicius Buitrago MD Address: Address: [address] Personnel Name: Vinicius Buitrago MD Address: Address: [facility] [address] Personnel Name: Vinicius Buitrago MD Address: Address: [facility] [address] Personnel Name: Vinicius Buitrago MD Address: Address: [facility] [address] Personnel Name: Vinicius Buitrago MD Address: Address: [facility] [address] Personnel Name: Vinicius Buitrago MD Address: [facility] [address] Telecom: Personnel Name: Vinicius Buitrago MD Address: [facility] [address] Tele[employer]: Personnel Name: Vinicius Buitrago MD Address: [facility] [address] Tele[employer]: Personnel Name: Vinicius Buitrago MD Address: [facility] [address] Tele[employer]: Personnel Name: Vinicius Buitrago MD Address: [facility] [address] Tele[employer]: FOR RECORDS PERTAINING TO PATIENTS WHO ARE OR HAVE BEEN ENROLLED IN A CHEMICAL DEPENDENCY/SUBSTANCEABUSE PROGRAM, SOME INFORMATION MAY BE OMITTED. This clinical summary was aggregated from multiple sources. Caution should be exercised in using it in the provision of clinical care. This summary normalizes information from multiple sources, and as a consequence, information in this document may materially change the coding, format and clinical context of patient data. In addition, data may be omitted in some cases. CLINICAL DECISIONS SHOULD BE BASED ON THE PRIMARY CLINICAL RECORDS. [employer] [facility]. provides no warranty or guarantee of the accuracy or completeness of information in this document.
--- NOTE | 2025-01-11 16:13 | ED_ITS ---
HPI HPI - General Adult General Chief complaint: Upper Respiratory Infection Stated complaint: CONGESTION, HEADACHE, SORE THROAT Time Seen by Provider: 01/11/25 15:52 Source: patient Mode of arrival: walk-in Limitations: no limitations History of Present Illness HPI narrative: This 64-year-old male states he has felt ill since yesterday with sore throat, body aches, slight cough and congestion. Few months ago he was being prepped for surgery for hydrocele and was found to have an irregular rhythm. He was diagnosed with atrial fibrillation and is now on Eliquis and metoprolol. He de nies hemoptysis. Related Data Home Medications ?Medication ?Instructions ?Recorded ?Confirmed apixaban 5 mg tablet (Eliquis) 5 mg PO Q12H 01/11/25 01/11/25 metoprolol succinate 50 mg 50 mg PO DAILY 01/11/25 01/11/25 tablet,extended release 24 hr Allergies Allergy/AdvReac Type Severity Reaction Status Date / Time No Known Drug Allergies Allergy Verified 12/01/24 09:53 Opioid HPI Opioid Management Most Recent Opioid Data: No Data to Display Review of Systems ROS Status of ROS 10 or more systems reviewed and unremark able except as noted in history and below PFSH PFS Medical History Irregular heart rate (12/01/24) ?I49.9 - Cardiac arrhythmia, unspecified (ICD-10) Abnormal EKG (12/01/24) ?R94.31 - Abnormal electrocardiogram [ECG] [EKG] (ICD-10) High cholesterol ?E78.00 - Pure hypercholesterolemia, unspecified (ICD-10) Right hydrocele ?N43.3 - Hydrocele, unspecified (ICD-10) Surgical History H/O inguinal hernia repair ?Z98.890 - Other specified postprocedural states (ICD-10) ?Z87.19 - Personal history of other diseases of the digestive system (ICD-10) History of hydrocelectomy ?Z98.890 - Other specified postprocedural states (ICD-10) Social History Within the past year, how often did you have a drink containing alcohol: monthly or less Smoking status: Current every day smoker What tobacco products do you use: cigarettes Packs per day: 1 Years smoked: 50 Smoking pack-years: 50.00 Non-prescribed substance use: cannabis (any form) Previous occupational history: [employer] Highest level of school completed/degree received: high school graduate Exam Narrative Exam Narrative: Patient is afebrile and nondistressed. HEENT exam is normal to inspection and there is minimal pharyngeal erythema. Neck is supple. Lung sounds are clear to auscultation bilaterally with good air entry. Heart has an irregular rhythm with controlled rate. Abdomen soft nontender. He moves all extremities actively. Constitutional Vital Signs, click to edit/add: Last Vital Signs Temp 99.2 F 01/11/25 16:03 Pulse 101 H 01/11/25 16:03 Resp 18 01/11/25 16:03 BP 148/94 H 01/11/25 16:03 Pulse Ox 99 01/11/25 16:03 O2 Del Method Room Air 01/11/25 16:03 Course Vital Signs Vital signs: Vital Signs Temperature 99.2 F 01/11/25 16:03 Pulse Rate 101 H 01/11/25 16:03 Respiratory Rate 18 01/11/25 16:03 Blood Pressure 148/94 H 01/11/25 16:03 Pulse Oximetry 99 01/11/25 16:03 Oxygen Delivery Method Room Air 01/11/25 16:03 Temperature 99.2 F 01/11/25 16:03 Pulse Rate 101 H 01/11/25 16:03 Respiratory Rate 18 01/11/25 16:03 Blood Pressure 148/94 H 01/11/25 16:03 Pulse Oximetry 99 01/11/25 16:03 Oxygen Delivery Method Room Air 01/11/25 16:03 Medical Decision Making [facility] Narrative Medical decision making narrative: Patient presents with a viral illness and has tested negative for strep, COVID and flu. Supportive care is advised and he is provided a work note at his request. He may return anytime for worsening symptoms. Lab Data Labs: Lab Results 01/11/25 Range/Units 16:08 Influenza Type A Ag Negative Influenza Type B Ag Negative SARS-CoV-2 Ag (CV2AG) Negative (NEGATIVE) Streptococcus Screen Negative Discharge Plan Discharge Stand Alone Forms: Work/School Release Chief Complaint: Upper Respiratory Infection Clinical Impression: Viral infection Patient Disposition: Home, Self-Care Time of Disposition Decision: 16:59 Condition: Good Mode of Transportation: Private Vehicle Prescriptions / Home Meds: No Action Eliquis 5 mg tablet 5 mg PO Q12H metoprolol succinate 50 mg tablet extended release 24 hr 50 mg PO DAILY Print Language: Hungarian Instructions: Viral Syndrome (ED) Additional Instructions: Tylenol for pain or fever as needed. Return for worsening symptoms. Referrals: MELITON GLEZ [Primary Care Provider] - 1 week
[2025-01-11 16:49] LABS: Influenza Virus A Antigen Negative; Influenza Virus B Antigen Negative; Internal Control Within Normal Limits
[2025-01-11 16:50] LABS: Internal Control Within Normal Limits; SARS-CoV-2 Ag NEGATIVE (NEGATIVE); Strep A Antigen Screen Negative
== END 2025-01-11 17:15 | disposition home or self-care (01) ==
PROVIDERS: Emergency Provider Emergency Medicine; Family Provider Internal Medicine; PCP Family Medicine
DX: B34.9 Viral infection, unspecified (principal); I48.91 Unspecified atrial fibrillation; Z79.01 Long term (current) use of anticoagulants; F17.210 Nicotine dependence, cigarettes, uncomplicated
CPT/HCPCS: 87070; 87804; 87811; 87880; 99285

== ENCOUNTER 2025-03-10 08:09 | Outpatient (OUT) | payer OTHER, SELFPAY ==
--- OUTSIDE RECORDS SUMMARY | 2025-03-10 08:12 | XMS_ITS | Clinical Summary ---
Author Organization [facility] Address [address] [place] [address] Care Team Providers Care Hydro Station Supervisor Name Role Phone Marciano Monreal MD Primary Care Provider [phone] Allergies No known active allergies Medications Pseudoeph-Doxyla [id number] (NYQUIL PO) Take by mouth as needed Active Active Problems Problem Noted Date Diagnosed Date Encysted hydrocele 01/12/2018 History of testicular lump 01/01/2018 Family History Medical History Relation Name Comments Cancer Mother Relation Name Status Comments Father Mother Social History Tobacco Use Types Packs/Day Years Used Date Smoking Tobacco: Every Day Cigarettes Smokeless Tobacco: Never Tobacco Cessation:Ready to Q uit: No; Counseling Given: No Alcohol Use Standard Drinks/Week Comments Yes 7 (1 standard drink = 0.6 oz pur e alcohol) daily Sex and Gender Information Value Date Recorded Sex Assigned at Not on file Legal Sex Male 5:08 PM EST Gender Identity Not on file Sexual Orientation Not on file Last Filed Vital Signs Vital Sign Reading Time Taken Comments Blood Pressure 136/82 02/04/2018 10:32 AM EDT Pulse 72 01/20/2018 1:50 PM EDT Temperature 36.8 C (98.2 F) 01/20/2018 1:35 PM EDT Respiratory Rate 16 01/20/2018 1:50 PM EDT Oxygen Saturation 98% 01/20/2018 1:50 PM EDT Inhaled Oxygen Concentration - - Weight 62.1 kg (137 lb) 02/04/2018 10:32 AM EDT Height 188 cm (6' 2 ) 01/20/2018 10:07 AM EDT Body Mass Index 17.59 01/20/2018 10:07 AM EDT Plan of Treatment Not on file Insurance [employer] Advance Directives * Full Code (Latest Code Status on File) Date Activated Date Inactivated Comments 01/20/2018 9:56 AM 01/20/2018 4:08 PM Care Teams Hydro Station Supervisor Relationship Specialty Start Date End Date Marciano Monreal MD PCP - General Family Medicine 01/12/18
--- OUTSIDE RECORDS SUMMARY | 2025-03-10 08:22 | XMS_ITS | CCD ---
Author Organization [facility] Care Team Providers Care Multimedia Journalist Name Role Phone MAHINTRACI Unavailable Unavailable JEREMY SANTOS Unavailable Unavailable GEO JONES Unavailable Unavailable GEO JONES Unavailable Unavailable JEREMY SANTOS Unavailable Unavailable Vinicius Buitrago Primary Care Physician Vinicius Buitrago Attending Unavailable Vinicius Buitrago Attending Unavailable Vinicius Buitrago Attending Unavailable Vinicius Buitrago Referring Unavailable Vinicius Buitrago Admitting Unavailable Vinicius Buitrago Attending Unavailable Vinicius Buitrago Admitting Unavailable Vinicius Buitrago Referring Unavailable NILElliot Knapp Attending Unavailable Kirnus, Kai D Attending Unavailable Birgit, SYSTEMS INTEGRATOR Hina L Referring Unavailable Heber, Young W Admitting Unavailable Heber, Young W Attending Unavailable NONE, XXXX Referring Unavailable MD Vinicius Buitrago Attending Unavailable Birgit, SYSTEMS INTEGRATOR Hina L Attending Unavailable MD Vinicius Buitrago Attending Unavailable Kirnus, Kai D Referring Unavailable Kirnus, Kai D Admitting Unavailable Kirnus, Kai D Consulting Unavailable Kirnus, Kai D Attending Unavailable Kirnus, Kai D Consulting Unavailable Kirnus, Kai D Consulting Unavailable Kirnus, Kai D Admitting Unavailable Kirnus, Kai D Attending Unavailable Kirnus, Kai D Referring Unavailable Heber, Young W Attending Unavailable Heber, Young W Admitting Unavailable Quincy HERNANDEZ Admitting Unavailable Quincy HERNANDEZ Attending Unavailable Kirnus, Kai D Attending Unavailable Birgit, SYSTEMS INTEGRATOR Hina L Referring Unavailable NONE, XXXX Referring Unavailable Kirnus, Kai D Attending Unavailable Heber, Young W Admitting Unavailable Heber, Young W Attending Unavailable Kirnus, Kai D Referring Unavailable Heber, Yonug W Admitting Unavailable Heber, Young W Attending Unavailable NONE, XXXX Referring Unavailable Vinicius Buitrago. Admitting Unavailable Vniicius Buitrago Attending Unavailable HERNANDEZ, Quincy R Attending Unavailable HERNANDEZ, Quincy R Attending Unavailable NILLElliot Referring Unavailable HERNANDEZ, Quincy R Attending Unavailable HERNANDEZ, Quincy R Admitting Unavailable HERNANDEZ, Quincy R Attending Unavailable Panchito, Nadir R. Admitting Unavailable Panchito, Nadir R. Attending Unavailable Panchito, Nadir R. Referring Unavailable Heber, Young W Admitting Unavailable Heber, Young W Attending Unavailable HERNANDEZ, Quincy R Attending Unavailable NONE, XXXX Referring Unavailable Heber, Young W Admitting Unavailable Heber, Young W Attending Unavailable Allergies Allergy Classification Reported Allergen(s) Allergy Type Date of Onset Reaction(s) Facility (4 sources) No Known Medication Allergies; Translations: [No Known Medication Allergies] Propensity to adverse reactions (disorder) [facility] Repository Medications Current Medications Medication Drug Class(es) Dates Sig (Normalized) Sig (Original) amiodarone hydrochloride 200 mg oral tablet (2 sources) Antiarrhythmic Start: 03-04-2025 take 1 tablet by mouth once daily amiodarone 200 mg Tab 200 mg = 1 tab(s), Oral, Daily, Patient will take 5 days a week, # 60 tab(s), Refills(s) 3, Pharmacy: [facility], 188, cm, 03/04/25 9:21:00 EDT, Height/Length Dosing, 72.6, kg, 03/04/25 9:24:00 EDT, Weight Dosing Start Date: 03/04/25 Status: Ordered Quantity: 60.0 Unit: tab(s) Repeat number: 4 apixaban 5 mg oral tablet (1 source) Factor Xa Inhibitor Start: 03-04-2025 take 1 tablet by mouth twice daily Eliquis 5 mg oral tablet 5 mg = 1 tab(s), Oral, BID, # 180 tab(s), Refills(s) 3, Pharmacy: [facility], 188, cm, 03/04/25 9:21:00 EDT, Height/Length Dosing, 72.6, kg, 03/04/25 9:24:00 EDT, Weight Dosing Start Date: 03/04/25 Status: Ordered Quantity: 180.0 Unit: tab(s) Repeat number: 4 Indications: Unspecified atrial fibrillation; Body mass index [BMI] 21.0-21.9, adult; Other specified health status; Abnormal electrocardiogram [ECG] [EKG]; 24 hr metoprolol succinate 25 mg extended release oral tablet (2 sources) beta-Adrenergic Rory Start: 03-04-2025 take 1 tablet by mouth once daily metoprolol succinate 25 mg ER Tab 25 mg = 1 tab(s), Oral, Daily, # 90 tab(s), Refills(s) 3, Pharmacy: [facility], 188, cm, 03/04/25 9:21:00 EDT, Height/Length Dosing, 72.6, kg, 03/04/25 9:24:00 EDT, Weight Dosing Start Date: 03/04/25 Status: Ordered Quantity: 90.0 Unit: tab(s) Repeat number: 4 Indications: Unspecified atrial fibrillation; Start: 01-03-2025 take 1 tablet by nelly th once daily at bedtime metoprolol succinate 50 mg ER Tab 50 mg = 1 tab(s), Oral, Bedtime, Take 1 tab daily at bettime. do not crush or chew., # 90 tab(s), Refills(s) 3, Pharmacy: [facility], 188, cm, 12/31/24 10:48:00 EDT, Height/Length Dosing, 75, kg, 12/31/24 10:48:00 EDT, Weight Dosing Start Date: 01/03/25 Status: Ordered Quantity: 90.0 Unit: tab(s) Repeat number: 4 Indications: Unspecified atrial fibrillation; Problems Problem Classification Problem Date Documented Date Episodic/Chronic Abdominal hernia (2 sources) Right inguinal hernia 08-19-2024 Episodic Cardiac dysrhythmias (15 sources) Atrial fibrillation; Translations: [Unspecified atrial fibrillation] Onset: 12-15-2024 12-02-2024 Chronic Other male genital disorders (1 source) Hydrocele; Translations: [HYDROCELE] Onset: 01-20-2018 Episodic Other male genital disorders (2 sources) Hydrocele of testis; Translations: [Hydrocele, unspecified] Onset: 09-07-2024 Episodic Other male genital disorders (20 sources) Disorder of male genital organ 09-07-2024 Episodic Other screening for suspected conditions (not mental disorders or infectious disease) (1 source) Encounter for screening for malignant neoplasm of prostate; Translations: [Screening for malignant neoplasm done] Onset: 11-08-2024 Episodic Residual codes; unclassified (14 sources) Tobacco user 08-19-2024 Episodic Substance-related disorders (17 sources) Tobacco dependence caused by cigarettes; Translations: [Nicotine dependence] Onset: 12-31-2024 08-19-2024 Chronic Comment on above: Added secondary to d ocumentation in Social History. Unclassified (1 source) HYDROCELE / HYDROCELE() Onset: 01-20-2018 Unclassified (12 sources) Body mass index 20-24 - normal 10-11-2024 Unclassified (20 sources) Patient encounter status 10-11-2024 Results Test Name Value Interpretation Reference Range Facility Heart and Vascular Office/Cl inic Noteon 03-04-2025 Heart and Vascular Office/Clinic Note Heart and Vascular Office/Clinic Note Chief Complaint 2 week F/U Cardioversion History of Present Illness Patient is a 64 year old male following up after cardioversion procedure. Patient states he has not felt different since having the cardioversion. Patient will decrease the amiodarone to 5 days a week to reduce long term care administrator effects. Patient will also decrease the metoprolol to 25mg QD at bed due to fatigue at the 50mg. The other option would be to start Tikosyn however it required a 3 day hospitalization. Patient was questioning being in the sun with Eliquis however it is the amiodarone that can affect the skin in the sun not the Eliquis. Patient was advised to use sunblock. Review of Systems PHQ Score Initial Depression Screen Score: 0 SCORE ROS - Provider Constitutional: no fever, no chills, no sweats, no weakness Respiratory: no shortness of breath, no cough Cardiovascular: no chest pain Neuro: no dizziness. no loss of consciousness Physical Exam Vitals & Measurements HR: 51(Peripheral) RR: 16 BP: 145/82 SpO2: 99% HT: 74 in HT: 188 cm WT: 160.055 lb WT: 72.6 kg BMI: 20.54 General: alert, no acute distress Neck: Supple, noJVD nocarotid bruit Cardiovascular: regular rate and rhythm, no murmur normal peripheral perfusion Respiratory: Lungs CTAB, respirations non labored Extremities: no edema left lower extremity. no edema right lower extremity Neurological: oriented x 4, LOC appropriate for age, speech normal Skin: Warm, dry, intact- no rash or concerning lesions Cardiac Diagnostics Synchronized DC cardioversion 02/17/2025 Indication: Highly symptomatic paroxysmal atrial fibrillation Procedure description. Informed consent was obtained. Consistency of anticoagulation was verified with the patient. The patient was brought to the endoscopy suite. Deep sedation was provided by Cardiology A synchronized DC cardioversion of 120 J was performed with with the patient still in atrial fibrillation as seen on monitor. Subsequent shock of 200 J synchronized was applied with no success. Repositioning of the pads with 200 J synchronized shock resulted in normal sinus rhythm There is no immediate complications. (12/28/2024 11:24 EDT Echo Transthoracic Complete) Left ventricular systolic function is mildly reduced. Ejection Fraction = 45-50%. There is mild global hypokinesis of the left ventricle. There is mild mitral regurgitation. There is mild tricuspid regurgitation. There is moderate pulmonary hypertension. Estimated RVSP is 45-50 mmHg. [1] Assessment/Plan 1. Atrial fibrillation (I48.91: Unspecified atrial fibrillation) Patient will decrease amiodarone to 5 days a wee to reduce the risk of long term care administrator effects, he will decrease metoprolol to 25mg at bed due to fatigue at metoprolol 50mg. Discussed with patient that if Eliquis becomes too cost effective he can get a paper script and try to get it from [facility]. Patient will be cleared in 1 month for his planned surgery. If he is in atrial fibrillation at that time we will have to readjust his medications. Before next appointment patient should have blood work done, CBC, CMP, TSH/T4, Magnesium. He will also get a chest xray, 24 hour holter monitor, and PFT. On the date of the next appointment he will get an EKG. Patient will return to clinic in 6 months for regular follow up appointment. Patient will call office for sooner appointment for acute concerns. Gonzalo Moore personally transcribed this note for on 03/04/2025 at 1000. Follow-up No qualifying data available Problem List/Past Medical History Ongoing Annual wellness visit Atrial fibrillation Bilateral hydrocele BMI 21.0-21.9, adult Cigarette nicotine dependence Right hydrocele Screening PSA (prostate specific antigen) Smoker Historical No qualifying data Procedure/Surgical History Hydrocelectomy (01/20/2018), Repair of left inguinal hernia. Medications amiodarone 200 mg Tab, 200 mg= 1 tab(s), Oral, Daily Eliquis 5 mg oral tablet, 5 mg= 1 tab(s), Oral, BID metoprolol succinate 50 mg ER Tab, 50 mg= 1 tab(s), Oral, Bedtime, 3 refills Allergies No Known Allergies No Known Medication Allergies Social History Alcohol Current. Beer. 1-2 times per week., 09/02/2024 Substance Abuse Never., 11/03/2024 Tobacco 10 or more cigarettes (1/2 pack or more)/day in last 30 days Tobacco Use:. Never Smokeless Tobacco Use:. Cigarettes, 1 per day. Started age 16.0 Years. Household tobacco concerns: No. Yes, 03/04/2025 Family History Family history is unknown Immunizations Vaccine Date Status SARS-CoV-2 (COVID-19) [id number] 06/22/2022 Recorded SARSCoV2 mRNA(ijhblkorv-lsia-wwgys s) vac 02/23/2022 Recorded SARS-CoV-2 (COVID-19) mRNA BNT-162b2 vax 09/25/2021 Recorded SARS-CoV-2 (COVID-19) mRNA BNT-162b2 vax 09/04/2021 Recorded [1] Echo Transthoracic Complete; Jesenia ONOFRE, Kai Handy 12/28/2024 11:24 EDT Normal [facility] Comment on above: Result Comment: Elec tronically Signed By: Young Sung MD\.br\Date and Time Signed: 03/04/25 10:28 EDT\.br\Electronically Co-Signed By: Gris Mace.br\Date and Time Co-Signed: 03/04/25 10:16 EDT Inpatient Clinical Summaryon 02-17-2025 Inpatient Clinical Summary Inpatient Clinical Summary [place] [id number] Clinical Summary Person Information: Name: MEJIA ALLEN Age: 64 Years : 1960 Sex: Male PCP: Vinicius Buitrago MD Marital Status: Single Race: White Ethnicity: Non- or Language: German Visit Id: Visit Reason: I48.91 Speciality: Acuity: Enc Type: Ambulatory/Same Day Surgery Med Service: Cardiovascular Arrival: 02/17/2025 07:23:25 Discharge: Dispo Type: Address: [address] [place] [id number] Provider Notes: Diagnosis: Problems Active Smoker Atrial fibrillation Screening PSA (prostate specific antigen) Bilateral hydrocele BMI 21.0-21.9, adult Annual wellness visit Right hydrocele Cigarette nicotine dependence Smoking Status: Current Every Day Smoker Functional Status: Sensory Deficits: Uncorrected visual impairment History of Falls: Mobility Assistance Prior to Admission: Independent ADLs: Independent Current Level of Assistance for Self-Care/Mobility: Cognitive Status: Allergies No Known Medication Allergies No Known Allergies Measurements: Height: 188 cm Weight: 71 kg Blood Pressure: Not Valued / Not Valued BMI: 20.09 kg/m2 Procedures No Procedures Documented Immunizations No Immunizations Documented This Visit Final Med List: amiodarone (amiodarone 200 mg Tab) apixaban (Eliquis 5 mg oral tablet) 1 Tablets By Mouth 2 times a day. Refills: 0. metoprolol (metoprolol succinate 50 mg ER Tab) 1 Tablets By Mouth at bedtime. Take 1 tab daily at bettime. do not crush or chew.. Refills: 3. Care Team Members: Attending Physician: Nadir Flanagan MD Consulting Physician: Referring Physician: Nadir Flanagan MD Follow up: With: Address: When: Young Ana Lilia [address] [place] [id number] Business (1) 03/04/2025 9:30 AM Type Location Start [facility] State Open [facility] Ginny 06/13/2025 11:00 AM 06/13/2025 11:20 AM Confirmed Patient Education Information: Atrial Fibrillation, Tkon-zy-Dtdg Normal [facility] Inpatient Patient Summaryon 02-17-2025 Inpatient Patient Summary Inpatient Patient Summary [address] [id number] Patient Discharge Instructions PERSON INFORMATION Name: MEJIA ALLEN Date of : 1960 Current Date: 02/17/2025 09:43:34 PHYSICIANS Admitting Physician: Panchito ONOFRE, Nadir vAitia Primary Care Physician: Iftikhar ONOFRE, Vinicius Hooker PCP Comment: Discharge Diagnosis: Condition at Discharge: Improved MEJIA ALLEN has been given the following list of follow-up instructions, prescriptions, and patient education materials: PATIENT FOLLOW-UP INFORMATION Diet: Discharge Activity: Discharge Restrictions: Wound Care Instructions: Remove Your Dressing In Days Call Your Doctor For: IF UNABLE TO CONTACT YOUR PHYSICIAN AND YOU FEEL IT IS AN EMERGENCY, GO TO THE NEAREST EMERGENCY ROOM OR CALL 911 Home Treatment: Devices/Equipment: Special Services: Additional Instructions: Primary Care Physician to provide the following pending test results: None Follow up: With: Address: When: Young Sung [address] [place] [address] [place] [address] Business (1) 03/04/2025 9:30 AM In the event that this physician does not participate in your insurance network, please consult with your insurance company to find a nearby participating provider. Type [facility]13[facility] 11:00 AM 06/13/2025 11:20 AM Confirmed Comment: I, MEJIA ALLEN, have received the attached patient education materials/instructions and have verbalized understanding: Patient Signature ____ Date Clinican/Nurse Signature Date HERE ARE THE MEDICATION CHANGES THAT OCCURRED DURING YOUR HOSPITAL STAY Medications to Continue with No Changes Other Medications amiodarone (amiodarone 200 mg Tab) Last Dose: Next Dose: apixaban (Eliquis 5 mg oral tablet) 1 Tablets By Mouth 2 times a day. Refills: 0. Last Dose: Next Dose: metoprolol (metoprolol succinate 50 mg ER Tab) 1 Tablets By Mouth at bedtime. Take 1 tab daily at bettime. do not crush or chew.. Refills: 3. Last Dose: Next Dose: Comment: MEDICATION LIST PROVIDED FOR YOU IS A LIST OF YOUR CURRENT MEDICATIONS. PLEASE CARRY THIS WITH YOU AT ALL TIMES. amiodarone (amiodarone 200 mg Tab) apixaban (Eliquis 5 mg oral tablet) 1 Tablets By Mouth 2 times a day. Refills: 0. metoprolol (metoprolol succinate 50 mg ER Tab) 1 Tablets By Mouth at bedtime. Take 1 tab daily at bettime. do not crush or chew.. Refills: 3. Pharmacy Information: Comment: PATIENT EDUCATION INFORMATION Instructions: Atrial Fibrillation Atrial fibrillation (AFib) is a [...] these instructions at home: Medicines ??? Take cyft-mzh-gmuhpok and prescription medicines only as told by your doctor. ??? Do not take any new medicines without first talking to your doctor. ??? If you are taking blood thinners: ? (more content not included)... Normal [facility] Operative Reporton 5 Operative Report Operative Report Synchronized DC cardioversion Indication: Highly symptomatic paroxysmal atrial fibrillation Procedure description. Informed consent was obtained. Consistency of anticoagulation was verified with the patient. The patient was brought to the endoscopy suite. Deep sedation was provided by Cardiology A synchronized DC cardioversion of 120 J was performed with with the patient still in atrial fibrillation as seen on monitor. Subsequent shock of 200 J synchronized was applied with no success. Repositioning of the pads with 200 J synchronized shock resulted in normal sinus rhythm There is no immediate complications. Conclusion: 1. Paroxysmal atrial fibrillation 2. Successful DC cardioversion Plan: Continue current therapy. Follow-up in the office. [facility] Comment on above: Result Comment: Elec tronically Signed By: Panchito ONOFRE, Nadir Avitia\.br\Date and Time Signed: 02/17/25 09:44 EDT CBC w/ Auto Diffon 05-16-202 5 Basophils/100 WBC (Bld) 0.4 % Normal 0.0-2.0 [facility] Comment on above: Performed By: #### 2 [id number] #### [facility] [address] [place] [address] Basophils/Leukocytes Auto (Bld) [Pure # fraction] 0.0 E9/L Normal 0.0-0.2 [facility] Comment on above: Performed By: #### 2 [id number] #### [facility] [address] [place] [address] Eosinophils (Bld) [#/Vol] 0.2 E9/L Normal 0.0-0.5 [facility] Comment on above: Performed By: #### 2 [id number] #### [facility] [address] [place] [address] Eosinophils/100 WBC (Bld) 3.3 % Normal 0.0-8.0 [facility] Comment on above: Performed By: #### 2 [id number] #### [facility] [address] [place] [address] Erythrocyte distribution width (RBC) [Ratio] 14.9 % High 10.9-14.2 [facility] Comment on above: Performed By: #### 2 [id number] #### [facility] [address] [place] [address] Hematocrit (Bld) [Volume fraction] 48.8 % Normal 37.7-49.0 [facility] Comment on above: Performed By: #### 2 [id number] #### [facility] [address] [place] [address] Hemoglobin (Bld) [Mass/Vol] 16.6 g/dL Normal 13.5-17.5 [facility] Comment on above: Performed By: #### 2 [id number] #### [facility] [address] [place] [address] Lymphocytes (Bld) [#/Vol] 1.4 E9/L Normal 1.0-4.0 [facility] Comment on above: Performed By: #### 2 [id number] #### [facility] [address] [place] [address] Lymphocytes/100 WBC (Bld) 21.7 % Normal 14.0-50.0 [facility] Comment on above: Performed By: #### 2 [id number] #### [facility] [address] [place] [address] MCH (RBC) [Entitic mass] 30.9 pg Normal 27.0-34.0 [facility] Comment on above: Performed By: #### 2 [id number] #### [facility] [address] [place] [address] MCHC (RBC) [Mass/Vol] 33.9 g/dL Normal 31.4-36.0 [facility] Comment on above: Performed By: #### 2 [id number] #### [facility] [address] [place] [address] MCV (RBC) [Entitic vol] 91.2 fL Normal 80.0-100.0 [facility] Comment on above: Performed By: #### 2 [id number] #### [facility] [address] [place] [address] Monocytes (Bld) [#/Vol] 0.6 E9/L Normal 0.2-1.0 [facility] Comment on above: Performed By: #### 2 [id number] #### [facility] [address] [place] [address] Neutrophils (Bld) [#/Vol] 4.4 E9/L Normal 2.0-7.5 [facility] Comment on above: Performed By: #### 2 [id number] #### [facility] [address] [place] [address] Neutrophils/100 WBC (Bld) 65.8 % Normal 36.0-75.0 [facility] Comment on above: Performed By: #### 2 [id number] #### [facility] [address] [place] [address] Platelet 185.0 E9/L Normal 150.0-500.0 [facility] Comment on above: Performed By: #### 2 [id number] #### [facility] [address] [place] [address] Platelet mean volume (Bld) [Entitic vol] 8.9 fL Normal 6.4-10.8 [facility] Comment on above: Performed By: #### 2 [id number] #### [facility] [address] [place] [address] RBC (Bld) [#/Vol] 5.4 E12/L Normal 4.3-5.9 [facility] Comment on above: Performed By: #### 2 [id number] #### [facility] [address] [place] [address] WBC corrected for nucl RBC Auto (Bld) [#/Vol] 6.7 E9/L Normal 4.0-11.0 [facility] Comment on above: Performed By: #### 2 [id number] #### [facility] [address] [place] [address] CHEMISTRYOrdered By: SYSTEM SYSTEM on 02-11-2025 Albumin [Mass/Vol] 4.6 g/dL Normal 3.3 - 5.0 gm/dL Remisol Chem Albumin/Globulin [Mass ratio] 1.8 {ratio} Normal 1.1 - 2.2 Remisol Chem ALP [Catalytic activity/Vol] 70 [iU]/d Normal 21 - 98 Int._Unit/L Remisol Chem ALT No additional P-5'-P [Catalytic activity/Vol] 10 [iU]/d Normal 6 - 46 Int._Unit/L Remisol Chem Anion gap [Moles/Vol] 9 mmol/L Normal 6 - 16 mEq/L Remisol Chem AST [Catalytic activity/Vol] 19 [iU]/d Normal 5 - 43 Int._Unit/L Remisol Chem Bilirubin [Mass/Vol] 0.7 mg/dL Normal 0.0 - 1 .1 mg/dL Rem[facility] Chem Calcium [Mass/Vol] 9.5 mg/dL Normal 8.9 - 11. 1 mg/dL Rem[facility] Chem Chloride [Moles/Vol] 103 mmol/L Normal 101 - 1 11 mmol/L Remisol Chem CO2 [Moles/Vol] 30 mmol/L Normal 21 - 31 mmol/L Remisol Chem Creatinine [Mass/Vol] 1.3 mg/dL Normal 0.5 - 1.3 mg/dL Remisol Chem eGFR 61 mL/min/1.73 m2 Normal >=59mL/min /1 .73 m2 Remisol Chem Globulin (S) [Mass/Vol] 2.5 g/dL Normal 1.4 - 4.0 gm/dL Rem[facility] Chem Glucose [Mass/Vol] 90 mg/dL Normal 55 - 199 mg/dL Rem[facility] Chem Magnesium [Mass/Vol] 2.2 mg/dL Normal 1.3 - 2 .4 mg/dL Rem[facility] Chem Potassium [Moles/Vol] 4.8 mmol/L Normal 3.5 - 5.3 mmol/L Remisol Chem Protein [Mass/Vol] 7.1 g/dL Normal 6.0 - 7.8 gm/dL Rem[facility] Chem Sodium [Moles/Vol] 137 mmol/L Normal 135 - 145 mmol/L Remisol Chem TSH Qn 2.61 m[IU]/L Normal 0.34 - 5.60 mcIU/mL Remisol Chem Urea nitrogen [Mass/Vol] 23 mg/dL High 5 - 21 mg/dL Remisol Chem Urea nitrogen/Creatinine [Mass ratio] 18 mg/mg Normal 10 - 20 Remisol Chem CMPon 02-11-2025 Albumin [Mass/Vol] 4.6 g/dL Normal 3.3-5.0 [facility] Comment on above: Performed By: #### 2 [id number] #### [facility] [address] [place] [address] Albumin/Globulin (S) [Mass conc ratio] 1.8 Normal 1.1-2.2 [facility] [facility] Comment on above: Performed By: #### 2 [id number] #### [facility] [address] [place] [address] ALP [Catalytic activity/Vol] 70 Int._Unit/L Normal 21-98 [facility] Comment on above: Performed By: #### 2 [id number] #### [facility] [address] [place] [address] ALT No additional P-5'-P [Catalytic activity/Vol] 10 Int._Unit/L Normal 6-46 [facility] Comment on above: Performed By: #### 2 [id number] #### [facility] [address] [place] [address] Anion gap [Moles/Vol] 9 mmol/L Normal 6-16 [facility] Comment on above: Performed By: #### 2 [id number] #### [facility] [address] [place] [address] AST [Catalytic activity/Vol] 19 Int._Unit/L Normal 5-43 [facility] Comment on above: Performed By: #### 2 [id number] #### [facility] [address] [place] [address] Bilirubin [Mass/Vol] 0.7 mg/dL Normal 0.0-1.1 [facility] Comment on above: Performed By: #### 2 [id number] #### [facility] [address] [place] [address] Calcium [Mass/Vol] 9.5 mg/dL Normal 8.9-11.1 [facility] Comment on above: Performed By: #### 2 [id number] #### [facility] [address] [place] [address] Chloride [Moles/Vol] 103 mmol/L Normal 101-111 [facility] Comment on above: Performed By: #### 2 [id number] #### [facility] [address] [place] [address] CO2 [Moles/Vol] 30 mmol/L Normal 21-31 [facility] Comment on above: Performed By: #### 2 [id number] #### [facility] [address] [place] [address] Creatinine [Mass/Vol] 1.3 mg/dL Normal 0.5-1.3 [facility] Comment on above: Performed By: #### 2 [id number] #### [facility] [address] [place] [address] Globulin (S) [Mass/Vol] 2.5 g/dL Normal 1.4-4.0 [facility] Comment on above: Performed By: #### 2 [id number] #### [facility] [address] [place] [address] Glucose [Mass/Vol] 90 mg/dL Normal 55-199 [facility] Comment on above: Performed By: #### 2 [id number] #### [facility] [address] [place] [address] Potassium [Moles/Vol] 4.8 mmol/L Normal 3.5-5.3 [facility] Comment on above: Performed By: #### 2 [id number] #### [facility] [address] [place] [address] Protein [Mass/Vol] 7.1 g/dL Normal 6.0-7.8 [facility] Comment on above: Performed By: #### 2 [id number] #### [facility] [address] [place] [address] Sodium [Moles/Vol] 137 mmol/L Normal 135-145 [facility] Comment on above: Performed By: #### 2 [id number] #### [facility] [address] [place] [address] Urea nitrogen [Mass/Vol] 23 mg/dL High 5-21 [facility] Comment on above: Performed By: #### 2 [id number] #### [facility] [address] [place] [address] Urea nitrogen/Creatinine [Mass ratio] 18 No Units Normal 10-20 [facility] Comment on above: Performed By: #### 2 [id number] #### [facility] [address] [place] [address] HEMATOLOGYOrdered By: SYSTEM SYSTEM on 02-11-2025 Basophils/100 WBC (Bld) 0.4 % Normal 0.0 - 2.0 % Remisol Heme Basophils/Leukocytes Auto (Bld) [Pure # fraction] 0.0 E9/L Normal 0.0 - 0.2 E9/L Remisol Heme Eosinophils (Bld) [#/Vol] 0.2 E9/L Normal 0.0 - 0.5 E9/L Remisol Heme Eosinophils/100 WBC (Bld) 3.3 % Normal 0.0 - 8.0 % Remisol Heme Erythrocyte distribution width (RBC) [Ratio] 14.9 % High 10.9 - 14.2 % Remisol Heme Hematocrit (Bld) [Volume fraction] 48.8 % Normal 37.7 - 49.0 % Remisol Heme Hemoglobin (Bld) [Mass/Vol] 16.6 g/dL Normal 13.5 - 17.5 gm/dL Remisol Heme Lymphocytes (Bld) [#/Vol] 1.4 E9/L Normal 1.0 - 4.0 E9/L Rem[facility] Heme Lymphocytes/100 WBC (Bld) 21.7 % Normal 14.0 - 50.0 % Remisol Heme MCH (RBC) [Entitic mass] 30.9 pg Normal 27.0 - 34.0 pg Remisol Heme MCHC (RBC) [Mass/Vol] 33.9 g/dL Normal 31.4 - 36.0 gm/dL Remisol Heme MCV (RBC) [Entitic vol] 91.2 fL Normal 80.0 - 100.0 fL Remisol Heme Monocytes (Bld) [#/Vol] 0.6 E9/L Normal 0.2 - 1.0 E9/L Remisol Heme Monocytes/100 WBC (Bld) 8.8 % Normal 4.0 - 14.0 % Remisol Heme Neutrophils (Bld) [#/Vol] 4.4 E9/L Normal 2.0 - 7.5 E9/L Remisol Heme Neutrophils/100 WBC (Bld) 65.8 % Normal 36.0 - 75.0 % Remisol Heme Platelet 185.0 E9/L Normal 150.0 - 500.0 E9/L Remisol Heme Platelet mean volume (Bld) [Entitic vol] 8.9 fL Normal 6.4 - 10.8 fL Remisol Heme RBC (Bld) [#/Vol] 5.4 E12/L Normal 4.3 - 5.9 E12/L Remisol Heme WBC corrected for nucl RBC Auto (Bld) [#/Vol] 6.7 E9/L Normal 4.0 - 11.0 E9/L Remisol Heme Heart and Vascular Office/Cl inic Noteon 02-11-2025 Heart and Vascular Office/Clinic Note Heart and Vascular Office/Clinic Note Chief Complaint 4 week follow up; AFIB History of Present Illness The patient is a 64-year-old male present in the clinic today to F/U christin Khan. In terms of cardiovascular symptoms, he reports none, besides occasional sharp chest discomfort on the right side, nonexertional. Denies shortness of breath, physically active, in fact, the patient is quite physically active, walking his dog, also states he was shoveling snow with no symptoms. Denies PND, orthopnea, palpitations. Denies history of hypertension/CHF/diabetes /CVA. There is no history of precocious CAD in the family. stress test done on January 04 was normal. and no sign of ischemia.No further concern at this visit. Review of Systems Constitutional: fever:no, chills:no, sweats:no, weakness:no, body aches:no, LERMA:no Skin: rash:no, lesions:no Respiratory: chest congestion/tightness:no, shortness of breath: no, cough:no, wheezing:no, orthopnea:no Cardiovascular: chest pain:no, palpitations:no, edema to LEs:no Neurologic: headache:no, dizziness:no, numbness/tingling in extremities:no, weakness:no, vision changes:no Physical Exam Vitals & Measurements HR: 63(Peripheral) RR: 18 BP: 119/77 SpO2: 98% HT: 74 in HT: 188 cm WT: 158.292 lb WT: 71.8 kg BMI: 20.31 General: Well developed, well nourished, in no [...] fibrillation (I48.91: Unspecified atrial fibrillation) Patient has had persistent fibrillation and is not very symptomatic from the arrhythmia. However atrial fibrillation long-term can have effects on ventricular function and valvular competence and return to sinus rhythm will be hemodynamically better for the patient. He has no awareness of this arrhythmia and he is on medications and tolerating it. Amiodarone will be monitored for side effects but we need to arrange for a cardioversion before that time and then after the cardioversion remains in sinus rhythm about a month afterward he could have surgery. Ordered: CBC w/ Auto Diff Comprehensive Metabolic Panel Magnesium Level TSH With T4fr Reflex Orders: ECG 12 Lead Adult Portions of this record have been created with voice recognition software. Occasional wrong-word or ???ddfdk-m-spnp??? substitutions may have occurred due to the inherent limitations of voice recognition software. Follow-up No qualifying data available Patient Education Atrial Fibrillation, Sdlo-di-Tltq Problem List/Past Medical History Ongoing Annual wellness visit Atrial fibrillation Bilateral hydrocele BMI 21.0-21.9, adult Cigarette nicotine dependence Right hydrocele Screening PSA (prostate specific antigen) Historical No qualifying data Procedure/Surgical History Hydrocelectomy (01/20/2018), Repair of left inguinal hernia. Medications amiodarone 200 mg Tab Eliquis 5 mg oral tablet, 5 mg= 1 tab(s), Oral, BID metoprolol succinate 50 mg ER Tab, 50 mg= 1 tab(s), Oral, Bedtime, 3 refills Allergies No Known Allergies No Known Medication Allergies Social History Alcohol Current. Beer. 1-2 times per week., 09/02/2024 Substance Abuse Never., 11/03/2024 Tobacco 10 or more cigarettes (1/2 pack or more)/day in last 30 days Tobacco Use:. Never Smokeless Tobacco Use:. Cigarettes, 1 per day. Started age 16.0 Years. Household tobacco concerns: No. Yes, 01/14/2025 Family History Family history is unknown Immunizations Vaccine Date Status SARS-CoV-2 (COVID-19) mRNAMUL.ORD![id number] 06/22/2022 Recorded SARSCoV2 mRNA(rphthemzi-dxxb-xtpfa s) vac 02/23/2022 Recorded SARS-CoV-2 (COVID-19) mRNA BNT-162b2 vax 09/25/2021 Recorded SARS-CoV-2 (COVID-19) mRNA BNT-162b2 vax 09/04/2021 Recorded Normal [facility] Comment on above: Result Comment: Elec tronically Signed By: Ana Lilia ONOFRE, Young W\.br\Date and Time Signed: 02/11/25 10:05 EDT Magnesiumon 02-11-2025 Magnesium [Mass/Vol] 2.2 mg/dL Normal 1.3-2.4 [facility] Comment on above: Performed By: #### 2 [id number] #### [facility] [address] [place] [address] TSH With T4fr Reflexon 02-11 TSH Qn 2.61 m[IU]/L Normal 0.34-5.60 [facility] Comment on above: Performed By: #### 1 [id number] #### [facility] [address] [place] [address] eGFRon 02-11-2025 eGFR 61 mL/min/1.73 m2 Normal >=59 [facility] Comment on above: Performed By: #### 1 [id number] #### [facility] [address] [place] [address] Heart and Vascular Office/Cl inic Noteon 01-14-2025 Heart and Vascular Office/Clinic Note Heart and Vascular Office/Clinic Note Chief Complaint 2 Week follow up after stress test History of Present Illness The patient is a 64-year-old male with no known prior cardiac history present in the clinic today to F/U of Bill after stress test procedure.He was seen by a urologist with plans [...] history of precocious CAD in the family. stress test done on January 04 was normal. and no sign of ischemia.No further concern at this visit. Review of Systems Constitutional: fever:no, chills:no, sweats:no, weakness:no, body aches:no, LERMA:no Skin: rash:no, lesions:no Respiratory: chest congestion/tightness:no, shortness of breath: no, cough:no, wheezing:no, orthopnea:no Cardiovascular: chest pain:no, palpitations:no, edema to LEs:no Neurologic: headache:no, dizziness:no, numbness/tingling in extremities:no, weakness:no, vision changes:no Physical Exam Vitals & Measurements HR: 79(Peripheral) RR: 18 BP: 104/64 SpO2: 97% HT: 188 cm HT: 74 in WT: 162.26 lb WT: 73.6 kg BMI: 20.82 General: Well developed, well nourished, in no [...] fibrillation (I48.91: Unspecified atrial fibrillation) Patient has persistent atrial fibrillation with a low ejection fraction. He will be started on amiodarone loading and be seen in about a month's time for potential DC cardioversion patient says he feels well at the present time. 2. Cigarette nicotine dependence (F17.210: Nicotine dependence, [...] with voice recognition software. Occasional wrong-word or ???obuzb-b-qfjy??? substitutions may have occurred due to the inherent limitations of voice recognition software. Follow-up With When Contact Information Ana Lilia ONOFRE, Young Gustafson, CAR Within 1 month [address] [place] [address]- Additional Instructions: Patient Education Managing the Challenge of Quitting Smoking Health Risks of Smoking Atrial Fibrillation, Zgfu-tq-Bwhv Problem List/Past Medical History Ongoing Annual wellness visit Atrial fibrillation Bilateral hydrocele BMI 21.0-21.9, adult Cigarette nicotine dependence Right hydrocele Screening PSA (prostate specific antigen) Historical No qualifying data Procedure/Surgical History Hydrocelectomy (01/20/2018), Repair of left inguinal hernia. Medications Eliquis 5 mg oral tablet, 5 mg= 1 tab(s), Oral, BID metoprolol succinate 50 mg ER Tab, 50 mg= 1 tab(s), Oral, Bedtime, 3 refills Allergies No Known Allergies No Known Medication Allergies Social History Alcohol Current. Beer. 1-2 times per week., 09/02/2024 Substance Abuse Never., 11/03/2024 Tobacco 10 or more cigarettes (1/2 pack or more)/day in last 30 days Tobacco Use:. Never Smokeless Tobacco Use:. Cigarettes, 1 per day. Started age 16.0 Years. Household tobacco concerns: No. Yes, 01/14/2025 Family History Family history is unknown Immunizations Vaccine Date Status SARS-CoV-2 (COVID-19) mRNAMUL.ORD![id number] 06/22/2022 Record (more content not included)... Normal [facility] Comment on above: Result Comment: Elec tronically Signed By: Young Sung MD\.br\Date and Time Signed: 01/14/25 13:14 EDT\.br\Electronically Co-Signed By: Mariela Yu\.br\Date and Time Co-Signed: 01/14/25 11:22 EDT NM Myocardial Spect Rest/Str ess 1 Dayon 01-06-2025 CO Myocardial Spect Rest/Stress 1 Day Exam Date/Time: 01/04/2025 13:02 EDT Reason for Exam: I48.91;Other (please specify) Report [facility] [address] [place] [address] Nuclear Stress Report Name: MEJIA ALLEN Study Date: 01/04/2025 10:44 AM Patient Location: [facility] Ambulatory(s) [facility] : 1960 (M/d/yyyy) Gender: Male Age: 64 yrs Ethnicity: T Reason For Study: I48.91;Other (please specify) Ordering Physician: Kai Ba Referring Physician: Kai Ba Protocol [id number] Pharmacologic Lexiscan stress with Isotope. Study Protocol: [...] Signed by: Nadir Flanagan MD Transcribed by: [facility] Technologist: MARK Raygo[facility] Heart and Vascular Office/Cl inic Noteon 12-31-2024 [...] it is important. Ordered: EKG Reading Profee [id number] 2. Cigarette nicotine dependence (F17.210: Nicotine dependence, [...] with voice recognition software. Occasional wrong-word or ???lstet-l-pltz??? substitutions may have occurred due to the inherent limitations of voice recognition software. Follow-up With When Contact Information Ana Lilia ONOFRE, Young W, CAR Within 2 weeks [address] [place] [address]- Additional Instructions: Patient Education Steps to Quit Smoking, Zjys-wd-Ztym Health Risks of Smoking Atrial Fibrillation, Fmey-cu-Lobl Problem List/Past Medical History Ongoing Annual wellness [...] unknown Immunizations Vaccine Date Status SARS-CoV-2 (COVID-19) mRNAMUL.ORD![id number] 06/22/2022 Recorded SARS (more content not included)... Normal [facility] Comment on above: Result Comment: Elec tronically [...] stopping that and start low-dose aspirin, with [id number] risk score of 1. Will check TSH/TTE [...] unknown Immunizations Vaccine Date Status SARS-CoV-2 (COVID-19) mRNAMUL.ORD![id number] 06/22/2022 Recorded SARSCoV2 mRNA(xkfyvwdtw-qbhm-pnvuh s) vac 02/23/2022 Recorded SARS-CoV-2 (COVID-19) mRNA BNT-162b2 vax 09/25/2021 Recorded SARS-CoV-2 (COVID-19) mRNA BNT-162b2 vax 09/04/2021 Recorded Normal [facility] Comment on above: Result Comment: Elec tronically [...] that time. (previous abnormal EKG done @ [facility] for PAT) Pt started on eliquis [...] (more content not included)... Normal [facility] Comment on above: Result Comment: Elec tronically Signed By: Iftikhar ONOFRE, Vinicius Hooker\.br\Date and Time Signed: 12/06/24 18:12 EDT Ambulatory Visit Summaryon 0 12-02-2024 Ambulatory Visit Summary Ambulatory Visit Summary MEJIA ALLEN :1960 Visit Date:12/02/2024 Ambulatory Visit Instructions Your [...] Follow-Up Appointments Friday 6:00 PM EDT With: Vinicius Buitrago MD Where: [facility] [address] [address]- Friday 3:00 PM EDT With: Jesenia ONOFRE, Kai Handy Where: Cardiology Clinic Friday 9:30 AM EDT With: ZEFERINO ONOFRE, Quincy Sparrow Where: [facility] [address] [address]- Medications What How Much When Why Instructions New metoprolol (Metoprolol tartrate 25 mg Tab) 1 Tablets By Mouth 2 times a day Atrial fibrillation BMI 21.0-21.9, adult Non-smoker Abnormal EKG Refills: 1 Pickup at [facility] Unchanged apixaban (Eliquis 5 mg oral tablet) Pharmacy Information [facility]: [address] [place], [place] [id number] [phone] Allergies No Known Allergies No Known Medication [...] for choosing us for your care. Normal [facility] Family Medicine Office/Clini c Noteon 12-02-2024 Family Medicine Office/Clinic Note Family Medicine Office/Clinic Note HPI Staff Mejia is a 64 year old male presenting to discuss Abnormal EKG Pt has pre surgical testing done at [facility] on 12/01/24 pt had abnormal EKG showing A-fib patient was asymptomatic History of Present Illness pt presents today to discuss recent EKG results. went to [facility] for pre surgical testing and was [...] BID, # 60 tab(s), Refills(s) 0, Pharmacy: [facility], 188, cm, 12/02/24 8:47:00 EST, Height/Length Dosing, 75.2, kg, 12/02/24 8:47:00 EST, Weight Dosing metoprolol, 25 mg = 1 tab(s), Oral, BID, # 60 tab(s), Refills(s) 1, Pharmacy: [facility], 188, cm, 12/02/24 8:47:00 EST, Height/Length Dosing, 75.2, kg, 12/02/24 8:47:00 EST, Weight Dosing 2. Abnormal EKG (R94.31: Abnormal electrocardiogram [ECG] [EKG]) pre surgical EKG at [facility] was abnormal. A-fib Ordered: apixaban, 5 mg = 1 tab(s), Oral, BID, # 60 tab(s), Refills(s) 0, Pharmacy: [facility], 188, cm, 12/02/24 8:47:00 EST, Height/Length Dosing, 75.2, kg, 12/02/24 8:47:00 EST, Weight Dosing metoprolol, 25 mg = 1 tab(s), Oral, BID, # 60 tab(s), Refills(s) 1, Pharmacy: [facility], 188, cm, 12/02/24 8:47:00 EST, Height/Length Dosing, 75.2, kg, 12/02/24 8:47:00 EST, Weight Dosing ECG 12 Lead Adult 3. BMI 21.0-21.9, adult (Z68.21: Body mass index [BMI] 21.0-21.9, adult) BMI education given Ordered: apixaban, 5 mg = 1 tab(s), Oral, BID, # 60 tab(s), Refills(s) 0, Pharmacy: [facility], 188, cm, 12/02/24 8:47:00 EST, Height/Length Dosing, 75.2, kg, 12/02/24 8:47:00 EST, Weight Dosing metoprolol, 25 mg = 1 tab(s), Oral, BID, # 60 tab(s), Refills(s) 1, Pharmacy: [facility], 188, cm, 12/02/24 8:47:00 EST, Height/Length Dosing, 75.2, kg, 12/02/24 8:47:00 EST, Weight Dosing ECG 12 Lead Adult 4. Non-smoker (Z78.9: Other specified health status) continue not smoking Ordered: apixaban, 5 mg = 1 tab(s), Oral, BID, # 60 tab(s), Refills(s) 0, Pharmacy: [facility], 188, cm, 12/02/24 8:47:00 EST, Height/Length Dosing, 75.2, kg, 12/02/24 8:47:00 EST, Weight Dosing metoprolol, 25 mg = 1 tab(s), Oral, BID, # 60 tab(s), Refills(s) 1, Pharmacy: [facility], 188, cm, 12/02/24 8:47:00 EST, [...] unknown Immunizations Vaccine Date Status SARS-CoV-2 (COVID-19) mRNAMUL.ORD![id number] 06/22/2022 Recorded SARSCoV2 mRNA(dwlwbzcnd-sfjx-sqtkn s) vac 02/23/2022 Recorded SARS-CoV-2 (COVID-19) mRNA BNT-162b2 vax 09/25/2021 Recorded SARS-CoV-2 (COVID-19) mRNA BNT-162b2 vax 09/04/2021 Recorded Normal [facility] Comment on above: Result Comment: Elec tronically Signed By: Hina Palmer\.matt\Date and Time Signed: 12/02/24 09:18 EST Patient Letter FTon [address] [facility] Patient Letter [facility] November 11, 2024 MEJIA ALLEN [address] [place] [address] : 1960 Dear Mejia Allen, We have been trying to reach you with no success. It is important that you return our call upon receiving this letter. Also, at the time of your call, please provide us with your current information. Thank you for your prompt attention to this matter. Sincerely, [facility] [address] [place] [address] Normal [facility] Ambulatory Visit Summaryon 0 11-08-2024 Ambulatory Visit Summary Ambulatory Visit Summary MEJIA ALLEN :1960 Visit Date:11/08/2024 Ambulatory Visit Instructions Your Diagnosis Bilateral hydrocele Screening PSA (prostate specific antigen) Your Care Team Attending Physician - Quincy HERNANDEZ MD Primary Care Physician - Vinicius Buitrago MD Referring Physician - Elliot WELCH MD Procedures Performed Hydrocelectomy (01/20/2018), Repair of left inguinal hernia. Discharge Vitals Temperature (Oral) 37 ???C Heart Rate (Peripheral) 74 Blood Pressure 138/74 Height 188 cm Height 74 in Weight 76.8 kg Weight 169.315 lb BMI 21.73 What to do next Scheduled Follow-Up Appointments Friday 9:30 AM EDT With: Quincy HERNANDEZ MD [facility] [address] [place] [address]- You Need to Schedule the Following Appointments Follow Up with Quincy HERNANDEZ MD, URL When: Comments: Schedule Rt Hydrocelectomy Where: [facility] [address] [facility] [place] [address]- Allergies No Known Allergies No Known Medication [...] (more content not included)... Normal [facility] CHEMISTRYOrdered By: SYSTEM SYSTEM on 11-08-2024 Prostate [...] for this result was chemiluminescence using Edwardo Christal's Access [employer]br[employer] PSA reagent. PSA Screen, Totalon 11-08-19 25 Prostate specific Ag [Mass/Vol] 0.5 ng/mL Normal 0.1-3.5 [facility] Comment on above: Result Comment: The concentration of PSA determined by different manufacturers can vary due to differences in assay methods and reagent specificity. Values obtained from different assay methods cannot be used interchangeably. The methodology used for this result was chemiluminescence using Edwardo Brewer's Access Hybritech PSA reagent. Performed By: #### 1 [id number] #### [facility] [address] [place] [id number] Urology Office/Clinic Noteon 11-08-2024 Urology Office/Clinic Note [...] (N43.3: Hydrocele, unspecified) S/p Lt Hydrocelectomy 2018 @[facility] CT of Pelvis 10/08/24 - large BL [...] Quincy Sparrow, URL [facility] [address] [place] [address]- Additional Instructions: Schedule Rt Hydrocelectomy Patient Education [...] (more content not included)... Normal [facility] Comment on above: Result Comment: Elec tronically [...] Care Team Attending Physician - Vinicius Buitrago MD. Primary Care Physician - Vinicius Buitrago MD [...] us for your care. Normal [facility] CBC w/ Auto Diffon 01-13-202 5 Basophils/100 WBC (Bld) 0.4 % Normal 0.0-2.0 [facility] Comment on above: Performed By: #### 2 [id number] #### [facility] [address] [place] [id number] Basophils/Leukocytes Auto (Bld) [Pure # fraction] 0.0 E9/L Normal 0.0-0.2 [facility] Comment on above: Performed By: #### 2 [id number] #### [facility] [address] [place] [address] Eosinophils (Bld) [#/Vol] 0.1 E9/L Normal 0.0-0.5 [facility] Comment on above: Performed By: #### 2 [id number] #### [facility] [address] [place] [id number] Eosinophils/100 WBC (Bld) 1.8 % Normal 0.0-8.0 [facility] Comment on above: Performed By: #### 2 [id number] #### [facility] [address] [place] [address] Erythrocyte distribution width (RBC) [Ratio] 13.6 % Normal 10.9-14.2 [facility] Comment on above: Performed By: #### 2 [id number] #### [facility] [address] [place] [address] Hematocrit (Bld) [Volume fraction] 46.2 % Normal 37.7-49.0 [facility] Comment on above: Performed By: #### 2 [id number] #### [facility] [address] [place] [address] Hemoglobin (Bld) [Mass/Vol] 15.6 g/dL Normal 13.5-17.5 [facility] Comment on above: Performed By: #### 2 [id number] #### [facility] [address] [place] [address] Lymphocytes (Bld) [#/Vol] 1.2 E9/L Normal 1.0-4.0 [facility] Comment on above: Performed By: #### 2 [id number] #### [facility] [address] [place] [address] Lymphocytes/100 WBC (Bld) 21.5 % Normal 14.0-50.0 [facility] Comment on above: Performed By: #### 2 [id number] #### [facility] [address] [place] [address] MCH (RBC) [Entitic mass] 30.9 pg Normal 27.0-34.0 [facility] Comment on above: Performed By: #### 2 [id number] #### [facility] [address] [place] [address] MCHC (RBC) [Mass/Vol] 33.8 g/dL Normal 31.4-36.0 [facility] Comment on above: Performed By: #### 2 [id number] #### [facility] [address] [place] [address] MCV (RBC) [Entitic vol] 91.6 fL Normal 80.0-100.0 [facility] Comment on above: Performed By: #### 2 [id number] #### [facility] [address] [place] [address] Monocytes (Bld) [#/Vol] 0.5 E9/L Normal 0.2-1.0 [facility] Comment on above: Performed By: #### 2 [id number] #### [facility] [address] [place] [address] Neutrophils (Bld) [#/Vol] 3.9 E9/L Normal 2.0-7.5 [facility] Comment on above: Performed By: #### 2 [id number] #### [facility] [address] [place] [address] Neutrophils/100 WBC (Bld) 67.2 % Normal 36.0-75.0 [facility] Comment on above: Performed By: #### 2 [id number] #### [facility] [address] [place] [address] Platelet 176.0 E9/L Normal 150.0-500.0 [facility] Comment on above: Performed By: #### 2 [id number] #### [facility] [address] [place] [address] Platelet mean volume (Bld) [Entitic vol] 9.3 fL Normal 6.4-10.8 [facility] Comment on above: Performed By: #### 2 [id number] #### [facility] [address] [place] [address] RBC (Bld) [#/Vol] 5.0 E12/L Normal 4.3-5.9 [facility] Comment on above: Performed By: #### 2 [id number] #### [facility] [address] [place] [address] WBC corrected for nucl RBC Auto (Bld) [#/Vol] 5.8 E9/L Normal 4.0-11.0 [facility] Comment on above: Performed By: #### 2 [id number] #### [facility] [address] [place] [address] CHEMISTRYOrdered By: SYSTEM SYSTEM on 10-11-2024 Albumin [...] [Mass/Vol] 4.6 g/dL Normal 3.3-5.0 [facility] Comment on above: Performed By: #### 2 [id number] #### [facility] [address] [place] [address] Albumin/Globulin (S) [Mass conc ratio] 1.7 Normal 1.1-2.2 [facility] Comment on above: Performed By: #### 2 [id number] #### [facility] [address] [place] [address] ALP [Catalytic activity/Vol] 69 Int._Unit/L Normal 21-98 [facility] Comment on above: Performed By: #### 2 [id number] #### [facility] [address] [place] [address] ALT No additional P-5'-P [Catalytic activity/Vol] 10 Int._Unit/L Normal 6-46 [facility] Comment on above: Performed By: #### 2 [id number] #### [facility] [address] [place] [address] Anion gap [Moles/Vol] 11 mmol/L Normal 6-16 [facility] Comment on above: Performed By: #### 2 [id number] #### [facility] [address] [place] [address] AST [Catalytic activity/Vol] 23 Int._Unit/L Normal 5-43 [facility] Comment on above: Performed By: #### 2 [id number] #### [facility] [address] [place] [address] Bilirubin [Mass/Vol] 0.7 mg/dL Normal 0.0-1.1 [facility] Comment on above: Performed By: #### 2 [id number] #### [facility] [address] [place] [address] Calcium [Mass/Vol] 9.7 mg/dL Normal 8.9-11.1 [facility] Comment on above: Performed By: #### 2 776658 #### [facility] [address] [place] [address] Chloride [Moles/Vol] 102 mmol/L Normal 101-111 [facility] Comment on above: Performed By: #### 2 [id number] #### [facility] [address] [place] [address] CO2 [Moles/Vol] 28 mmol/L Normal 21-31 [facility] Comment on above: Performed By: #### 2 781129 #### [facility] [address] [place] [address] Creatinine [Mass/Vol] 0.9 mg/dL Normal 0.5-1.3 [facility] Comment on above: Performed By: #### 2 [id number] #### [facility] [address] [place] [address] Globulin (S) [Mass/Vol] 2.7 g/dL Normal 1.4-4.0 [facility] Comment on above: Performed By: #### 2 [id number] #### [facility] [address] [place] [address] Glucose [Mass/Vol] 99 mg/dL Normal 55-199 [facility] Comment on above: Performed By: #### 2 [id number] #### [facility] [address] [place] [address] Potassium [Moles/Vol] 4.7 mmol/L Normal 3.5-5.3 [facility] Comment on above: Performed By: #### 2 [id number] #### [facility] [address] [place] [address] Protein [Mass/Vol] 7.3 g/dL Normal 6.0-7.8 [facility] Comment on above: Performed By: #### 2 [id number] #### [facility] [address] [place] [address] Sodium [Moles/Vol] 136 mmol/L Normal 135-145 [facility] Comment on above: Performed By: #### 2 [id number] #### [facility] [address] [place] [address] Urea nitrogen [Mass/Vol] 17 mg/dL Normal 5-21 [facility] Comment on above: Performed By: #### 2 [id number] #### [facility] [address] [place] [address] Urea nitrogen/Creatinine [Mass ratio] 19 No Units Normal 10-20 [facility] Comment on above: Performed By: #### 2 [id number] #### [facility] [address] [place] [address] Family Medicine Office/Clini c Noteon 10-11-2024 Family [...] unknown Immunizations Vaccine Date Status SARS-CoV-2 (COVID-19) mRNAMUL.ORD![id number] 06/22/2022 Recorded SARSCoV2 mRNA(jair s) vac 02/23/2022 Recorded SARS-CoV-2 (COVID-19) mRNA BNT-162b2 vax 09/25/2021 Recorded SARS-CoV-2 (COVID-19) mRNA BNT-162b2 vax 09/04/2021 Recorded Normal [facility] Comment on above: Result Comment: Elec tronically Signed By: Iftikhar ONOFRE, Vinicius Carbajal\Date and Time Signed: 10/11/24 10:39 EST HEMATOLOGYOrdered [...] [Mass/Vol] 205 mg/dL High 120-200 [facility] Comment on above: Performed By: #### 2 [id number] #### [facility] [address] [place] [address] Cholesterol in HDL [Mass/Vol] 63 mg/dL Invalid Interpretation Code [facility] Comment on above: Result Comment: '>= 60 LOW RISK' '<= 40 HIGH RISK' Performed By: #### 2 [id number] #### [facility] [address] [place] [address] Cholesterol in LDL [Mass/Vol] 131 mg/dL High <=129 [facility] Comment on above: Performed By: #### 2 [id number] #### [facility] [address] [place] [address] Cholesterol in VLDL [Mass/Vol] 20 mg/dL Normal 7-40 [facility] Comment on above: Performed By: #### 2 [id number] #### [facility] [address] [place] [address] Triglyceride [Mass/Vol] 98 mg/dL Normal <=149 [facility] Comment on above: Performed By: #### 2 [id number] #### [facility] [address] [place] [address] eGFRon 10-11-2024 eGFR 95 mL/min/1.73 m2 Normal >=59 [facility] Comment on above: Performed By: #### 1 [id number] #### [facility] [address] [place] [address] CT Chest, Low Dose Screening on 09-06-2024 [...] JOSE A Technologist: JUDY Smith [facility] Ambulatory Visit Summaryon 1 10-19-2023 Ambulatory Visit [...] PM EST With: Vinicius Buitrago MD Where: [place] [address]- You Need to Complete the Following CT Chest, Low Dose Screening, 08/19/24, Routine, Order for future visit, Transport Mode: Ambulatory, Reason: Screening, Yes, Yes, Yes, 1, 35, Yes, 0, [id number], No, Smoker Cigarette nicotine dependence, pp_set_radiology_subspeci lenin, [place] Allergies No Known Medication Allergies Problems Ongoing [...] us for your care. Normal [facility] Family Medicine Office/Clini c Noteon 08-19-2024 Family Medicine Office/Clinic Note Family Medicine Office/Clinic Note HPI Staff Michael is a 64 year old male presenting to establish care Establish Care: History: previous issue with the fluid in scrotum (? hydroceole) Any previous diagnosis: hemorrhoids, had surgery History of seeing any specialist: none When was your last doctors visit: few years Last provider: Dr iFnch (robert) Any recent labs: none Health Maintenance [...] negative Immunizations Vaccine Date Status SARS-CoV-2 (COVID-19) mRNAMUL.ORD![id number] 06/22/2022 Recorded SARSCoV2 mRNA(pizvhtmor-zozs-xtznl s) vac 02/23/2022 Recorded SARS-CoV-2 (COVID-19) mRNA BNT-162b2 vax 09/25/2021 Recorded SARS-CoV-2 (COVID-19) mRNA BNT-162b2 vax 09/04/2021 Recorded Normal [facility] Comment on above: Result Comment: Elec tronically Signed By: Iftikhar ONOFRE, Vinicius Carbajal\Date and Time Signed: 08/19/24 11:11 EST Interval History and Physion 01-20-2018 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 [facility] OPERATIVE REPORTon 8 OPERATIVE REPORT [address] [address] OPERATIVE REPORTPATIENT NAME: FRED ALLEN : 1960MED REC NO: [id number] ROOM:ACCOUNT NO: [id number] ADMIT DATE: 01/20/2018PROVIDER: Geo CarrollTE OF PROCEDURE: 01/20/2018PREOPERATIVE DIAGNOSIS: Left hydrocele.POSTOPERATIVE DIAGNOSIS: Left hydrocele.OPERATION PERFORMED: Left hydrocelectomy.SURGEON: Geo JonesASSISTANT: None.ANESTHESIA: General.COMPLICATIONS: None.EBL: Minimal.SPECIMENS: Hydrocele sac.DISPOSITION: Stable.PROSTHESIS: None.FINDINGS: 250 mL left hydrocele.INDICATIONS: The patient is a 57-year-old male who had a longstandingleft-sided scrotal swelling. He did have an ultrasound performed, whichshowed hydrocele, here now for hydrocelectomy.OPERATIVE PROCEDURE: The patient was taken back to the operating roomafter informed consent including all risks, benefits, and alternativesobtained. The patient was transferred from his gurney on to the operatingtable, where he was [...] was then awoken from generalanesthesia, [facility], taken to the PACU in satisfactorycondition by Nursing and Anesthesia teams.PLAN: The patient will be discharged home per PACU criteria. Follow upwith us in 2 weeks for wound check.GEO JONESD: 01/20/2018 12:50:26 DAVID/Kishore_HANNAH_IJob#: [id number] Doc#: [id number]: Normal [facility] Op Noteon 01-20-2018 HIM IP Note OR [employer]ored Car [employer] [facility] Progress Noteon 01-20-2018 HIM IP Note OR [employer]ored [employer] [facility] HIM IP Note OR [employer]ored [employer] [facility] Surgical Pathologyon 018 Surgical Pathology (NOTE)[id number] LABORATORIESCONSULTING PATHOLOGISTS NEMOURS FOUNDATIONANATOMIC [id number] [place] [id number] Fax: SURGICAL PATHOLOGY CONSULTATIONPatient Name: [facility] ALLENR[facility]Ohio[facility] Rec: [id number] Number: [id number]: 01/20/2018Received: 01/21/2018Reported: 01/22/2018 08:19-- Diagnosis --Left inguinal region: Hydrocele sac. Prema GrimaldoElectronically Signed Out rdd/01/22/2018Clinical InformationPre-op Diagnosis: HYDROCELE Operative Findings: HYDROCELE SAC FROM LEFT SIDEOperation Performed: HYDROCELECTOMYSource of Specimen1: LEFT HYDROCELE SACGross Description FRED ALLEN, LEFT HYDROCELE SAC A 7.5 x 2.5 x 1.0 cm translucentportion of thin alarcon-vasquez fibromembranous tissue with no masses. Medical Massage Therapist sections 1cs. asMicroscopic DescriptionMicroscopic examination performed. 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 [facility] Progress Noteon 01-13-2018 HIM IP Note OR [employer]ored Car [employer] [facility] Vital Signs Date Time Vital Sign Value Performing Clinician Faci lity 02-11-2025 09:26-0400 Blood Pressure Location Young Heber [facility] 02-11-2025 09:26-0400 Diastolic blood pressure 77 mm[Hg] [facility] Heber [facility] 02-11-2025 09:26-0400 Heart rate 63 /min Young Heber [facility] 02-11-2025 09:26-0400 Respiratory rate 18 /min Young Heber [facility] 02-11-2025 09:26-0400 SaO2% (BldA) [Mass fraction] 98 % [facility] Heber [facility] 02-11-2025 09:26-0400 Systolic blood pressure 119 mm[Hg] Young Heber [facility] 01-14-2025 10:25-0400 Blood Pressure Location Young Heber [facility] 01-14-2025 10:25-0400 Diastolic blood pressure 64 mm[Hg] [facility] Heber [facility] 01-14-2025 10:25-0400 Heart rate 79 /min Young Heber [facility] 01-14-2025 10:25-0400 Respiratory rate 18 /min Young Heber [facility] 01-14-2025 10:25-0400 SaO2% (BldA) [Mass fraction] 97 % Young Heber [facility] 01-14-2025 10:25-0400 Systolic blood pressure 104 mm[Hg] Young Heber [facility] 12-31-2024 10:43-0400 Blood Pressure Location Young Heber [facility] 12-31-2024 10:43-0400 Diastolic blood pressure 73 mm[Hg] [facility] Heber [facility] 12-31-2024 10:43-0400 Heart rate 77 /min Young Heber [facility] 12-31-2024 10:43-0400 Respiratory rate 18 /min Young Heber [facility] 12-31-2024 10:43-0400 SaO2% (BldA) [Mass fraction] 99 % Young Heber [facility] 12-31-2024 10:43-0400 Systolic blood pressure 114 mm[Hg] [facility] Heber [facility] 12-15-2024 14:25-0400 Blood Pressure Location Kai Kirnus [facility] 12-15-2024 14:25-0400 Diastolic blood pressure 78 mm[Hg] Kai Kirnus [facility] 12-15-2024 14:25-0400 Heart rate 90 /min Kai Kirnus [facility] 12-15-2024 14:25-0400 Respiratory rate 18 /min Kai Kirnus [facility] 12-15-2024 14:25-0400 SaO2% (BldA) [Mass fraction] 96 % Kai Kirnus [facility] 12-15-2024 14:25-0400 Systolic blood pressure 113 mm[Hg] Kai Kirnus [facility] 11-08-2024 11:02-0500 Blood Pressure Location Quincy HERNANDEZ [facility] 11-08-2024 11:02-0500 Body temperature 98.6 [degF] Quincy HERNANDEZ [facility] 11-08-2024 11:02-0500 Diastolic blood pressure 74 mm[Hg] Quincy HERNANDEZ [facility] 11-08-2024 11:02-0500 Heart rate 74 /min Quincy HERNANDEZ [facility] 11-08-2024 11:02-0500 Systolic blood pressure 138 mm[Hg] Quincy HERANNDEZ [facility] 09-07-2024 14:16-0500 Blood Pressure Location Elliot LEILAL [facility] 09-07-2024 14:16-0500 Diastolic blood pressure 84 mm[Hg] Elliot NILL [facility] 09-07-2024 14:16-0500 Heart rate 87 /min Elliot NILL [facility] 09-07-2024 14:16-0500 Respiratory rate 16 /min Elliot NILL [facility] 09-07-2024 14:16-0500 Systolic blood pressure 131 mm[Hg] Elliot NILL [facility] Encounters Encounter Date Encounter Type Care Provider Facility Start: 06-13-2025 ambulatory MD Vinicius Rod ity:[facility] Start: 04-18-2025 ambulatory Quincy Rodi ty:[facility] Start: 03-24-2025 ambulatory Quincy Rodi ty:CD:[id number] Start: 03-04-2025 End: 03-04-2025 ambulatory XXXX NONE Facility:[facility] Start: 03-04-2025 End: 03-04-2025 Patient encounter procedure Young W Heber [facility] Start: 02-17-2025 End: 02-17-2025 ambulatory Nadir SparrowRome Panchito Facility:[facility] Start: 02-11-2025 End: 02-11-2025 ambulatory Young W Heber Facility:[facility] Start: 02-11-2025 End: 02-11-2025 Patient encounter procedure Young W Heber [facility] Start: 01-17-2025 ambulatory Quincy Rodi ty:[facility] [place] Start: 01-14-2025 End: 01-14-2025 ambulatory Young W Heber Facility:[facility] Start: 01-14-2025 End: 01-14-2025 Patient encounter procedure Young W Heber [facility] Start: 01-04-2025 End: 01-04-2025 ambulatory Kai D Kirnus Facility:[facility] Start: 01-04-2025 End: 01-04-2025 Patient encounter procedure Kai D Kirnus [facility] Start: 12-31-2024 End: 01-01-2025 ambulatory Young W Heber Facility:[facility] Start: 12-31-2024 End: 01-01-2025 Patient encounter procedure Young W Heber [facility] Start: 12-28-2024 End: 12-29-2024 ambulatory Kai D Kirnus Facility:[facility] Start: 12-28-2024 End: 12-29-2024 Patient encounter procedure Kai Ba [facility] Start: 12-17-2024 Evaluation and manag ement of inpatient Kai Lopeznus Facility:[facility] Start: 12-15-2024 End: 12-16-2024 ambulatory Kai Ba Facility:[facility] Start: 12-15-2024 End: 12-16-2024 Patient encounter procedure Hina Genao [facility] Start: 12-15-2024 End: 12-16-2024 Preprocedural examination done Kai Lopezelisha [facility] Start: 12-06-2024 End: 12-06-2024 ambulatory MD Vinicius Buitrago Facility:[facility] Start: 12-06-2024 ambulatory Kai Jesenia Facility :[facility] Start: 12-02-2024 End: 12-02-2024 ambulatory SYSTEMS INTEGRATOR Hina L Birgit Facility:[facility] Start: 11-08-2024 End: 11-08-2024 ambulatory Quincy HERNANDEZ Facility:[facility] Start: 11-08-2024 End: 11-08-2024 Lab Drop off Quincy HERNANDEZ [facility] Start: 11-08-2024 End: 11-08-2024 ambulatory Elliot WELCH Facility: [place] Start: 11-08-2024 End: 11-08-2024 Patient encounter procedure Quincy HERNANDEZ [facility] [place] Start: 10-11-2024 End: 10-11-2024 Lab Drop off Vinicius Buitrago [facility] Start: 10-11-2024 End: 10-11-2024 ambulatory [facility] Start: 09-07-2024 End: 09-07-2024 [facility] Start: 09-07-2024 End: 09-07-2024 Patient encounter procedure Elliot WELCH [facility] [place] Start: 09-01-2024 End: 09-01-2024 ambulatory Vinicius Buitrago Facility:[facility] Start: 09-01-2024 End: 09-01-2024 Patient encounter procedure Vinicius Buitrago [facility] Start: 08-20-2024 ambulatory Vinicius Buitrago Facility: [facility] Start: 08-19-2024 End: 08-19-2024 ambulatory Vinicius Buitrago Facility:[facility] Start: 01-20-2018 End: 01-20-2018 Ambulatory [facility] Start: 01-13-2018 End: 01-14-2018 Ambulatory TRACI STOCKTON [facility] Procedures Date Procedure Procedure Detail Performing Clinician Start: 01-20-2018 DISCHARGE PATIENT LUKE SAINZ MAHIN Start: 01-20-2018 SURGICAL PATHOLOGY JAKYJelly LANDON MAHIN Start: 01-20-2018 BEDREST TRACI JACOBS Start: 01-20-2018 Continuous pulse oximetry TRACI STOCKTON Start: 01-20-2018 INITIATE OXYGEN THER APY PROTOCOL TRACI STOCKTON Start: 01-20-2018 NOTIFY PHYSICIAN (SPECIFY) TRACI STOCKTON Start: 01-20-2018 NURSING COMMUNICATION B SUSANA STOCKTON Start: 01-20-2018 REMOVE IV TRACI JACOBS Start: 01-20-2018 VITAL SIGNS TRACI JACOBS Start: 01-20-2018 DIET NPO, NOW TRACI BARAHONA Start: 01-20-2018 FULL CODE TRACI JACOBS Start: 01-20-2018 INITIATE OXYGEN THER APY PROTOCOL TRACI STOCKTON Start: 01-20-2018 INSERT PERIPHERAL IV BE GLORIA STOCKTON Start: 01-20-2018 NOTIFY PHYSICIAN (SPECIFY) TRACI MAHIN Start: 01-20-2018 NURSING COMMUNICATION B SUSANA FELDERMARISELA Start: 01-20-2018 PLACE INTERMITTENT P NEUMATIC COMPRESSION DEVICE TRACI STOCKTON Start: 01-20-2018 VERIFY INFORMED CONSENT TRACI STOCKTON Start: 01-20-2018 VITAL SIGNS TRACI JACOBS Start: 01-20-2018 Hydrocelectomy Elliot MISSY Start: 01-13-2018 EKG 12-LEAD TRACI JACOBS Hemorrhoidectomy Vinicius Buitrago Repair of left ingui nal hernia Elliot MISSY Surgery (qualifier value) Sa val Buitrago Comment on above: he was unsure what t he surgery was called Immunizations Immunization Date Immunization Notes Care Provider Fa cility 06-22-2022 SARS-CoV-2 (COVID-19 ) mRNAMUL.ORD![id number] Vinicius Buitrago [facility] 02-23-2022 SARS-CoV-2 mRNA (sagkjrwjano-ysge-kfoen se) vaccine Vinicius Buitrago [facility] 09-25-2021 SARS-CoV-2 (COVID-19 ) mRNA BNT-162b2 vax Vinicius Buitrago [facility] 09-04-2021 SARS-CoV-2 (COVID-19 ) mRNA BNT-162b2 vax Vinicius Buitrago [facility] Payers Date Payer Category Payer Medicaid [id number] 2024 Unknown [id number] 2024 Unknown [id number] 2015 Unknown [id number] 1960 Unknown [id number] 2.16.8 [id number] 1960 Unknown [id number] 2.16.8 [id number] 1960 Unknown [id number] 2.16.8 [id number] 1960 Unknown [id number] 2.16.8 [id number] 1960 Unknown [id number] 2.16.8 [id number] 1960 Unknown [id number] 2.16.8 [id number] 1960 Unknown [id number] 2.16.8 [id number] 1960 Unknown [id number] 2.16.8 [id number] 1960 Unknown [id number] 2.16.8 [id number] 1960 Unknown [id number] 2.16.8 [id number] 1960 Unknown [id number] 2.16.8 40.1.842399.3.579.2.727 1960 Unknown [id number] 2.16.8 40.1.631615.3.579.2.727 1960 Unknown [id number] 2.16.8 40.1.830499.3.579.2.727 1960 Unknown [id number] 2.16.8 40.1.494797.3.579.2.727 1960 Unknown [id number] 2.16.8 40.1.374670.3.579.2.727 1960 Unknown [id number] 2.16.8 40.1.835150.3.579.2.727 1960 Unknown [id number] 2.16.8 40.1.818152.3.579.2.727 1960 Unknown [id number] 2.16.8 40.1.385228.3.579.2.727 1960 Unknown [id number] 2.16.8 40.1.565305.3.579.2.727 1960 Unknown [id number] 2.16.8 40.1.450943.3.579.2.727 1960 Unknown [id number] 2.16.8 40.1.429735.3.579.2.727 1960 Unknown [id number] 2.16.8 40.1.961458.3.579.2.727 1960 Unknown [id number] 2.16.8 40.1.825895.3.579.2.727 1960 Unknown [id number] 2.16.8 40.1.912622.3.579.2.727 Social History Date Type Detail Facility Start: 08-19-2024 End: 03-04-2025 Tobacco smoking status Heavy tobacco smoker (finding) [facility] Tobacco smoking status Never [facility] Sex Assigned At Male [facility] Sexual Orientation [facility] Sex Male (finding) [facility] Functional Status Date Assessment Result Facility 02-11-2025 Functional Status N/A [facility] 01-14-2025 Functional Status N/A [facility] 12-31-2024 Functional Status N/A [facility] 12-15-2024 Functional Status N/A [facility] 11-08-2024 Functional Status N/A [facility] 09-07-2024 Functional Status N/A [facility] General Surgery [place] Clinical Notes 09-07-2024 to 02-17-2025 LaboratoryRadiologyLaboratoryRadiologyLaboratoryRadiologyLaboratoryLaboratoryLab oratoryLaboratoryRadiology Note Date & Type Note Facility 02-17-2025 Note Patient Education - Text Cardiovascular Atrial [...] these instructions at home: Medicines ??? Take fzin-gfj-lodgnhx and prescription medicines only as told by [...] provider. Document Revised: 06/04/2023 Document Reviewed: 06/04/2023 [employer] Patient Education ? 2023 [employer] [facility] 02-17-2025 Note Progress Note-Physic prashant Airway Assessment: Class II: Visualization of the soft palate, fauces, uvula Airway Abnormalities: none ASA Classification: ASA 2: A patient with mild systemic disease Risks/Benefits of IV Sedation: Have been explained IV Sedation Plan: _Patient agrees to IV sedation plan [facility] Comment on above: Result Comment: Elec tronically Signed By: Panchito ONOFRE, Nadir Avitia\.br\Date and Time Signed: 02/17/25 09:21 EDT 02-11-2025 Hospital Discharge instructions Patient Education 02/11/2025 10:04:43 Atrial Fibrillation, Tsqk-ti-Ycjs Atrial Fibrillation Atrial fibrillation (AFib) is a [...] Follow these instructions at home: Medicines Take ywvf-noi-qhydzor and prescription medicines only as told by [...] provider. Document Revised: 06/04/2023 Document Reviewed: 06/04/2023 [employer] Patient Education 2023 [employer] [facility] 02-11-2025 Note Patient Education - Text Cardiovascular Atrial [...] these instructions at home: Medicines ??? Take libf-haz-faqidne and prescription medicines only as told by [...] provider. Document Revised: 06/04/2023 Document Reviewed: 06/04/2023 [employer] Patient Education ? 2023 [employer] [facility] 01-14-2025 Hospital Discharge instructions Patient Education 01/14/2025 11:11:53 Managing the Challenge of Quitting Smoking Managing the Challenge of Quitting Smoking Quitting smoking is a physical and mental challenge. You may have cravings, withdrawal symptoms, and temptation to smoke. Before quitting, work with your health care provider to make a plan that can help you manage quitting. Making a plan before you quit may keep you from smoking when you have the urge to smoke while trying to quit. How to manage lifestyle changes Managing stress Stress can make you want to smoke, and wanting to smoke may cause stress. It is important to find ways to manage your stress. You could try some of the following: Practice relaxation techniques. ?Breathe slowly and deeply, in through your nose and out through your mouth. ?Listen to music. ?Soak in a bath or take a shower. ?Imagine a peaceful place or vacation. Get some support. ?Talk with family or friends about your stress. ?Join a support group. ?Talk with a counselor or therapist. Get some physical activity. ?Go for a walk, run, or bike ride. ?Play a favorite sport. ?Practice yoga. Medicines Talk with your health care provider about medicines that might help you deal with cravings and make quitting easier for you. Relationships Social situations can be difficult when you are quitting smoking. To manage this, you can: Avoid parties and other social situations where people might be smoking. Avoid alcohol. Leave right away if you have the urge to smoke. Explain to your family and friends that you are quitting smoking. Ask for support and let them know you might be a bit grumpy. Plan activities where smoking is not an option. General instructions Be aware that many people gain weight after they quit smoking. However, not everyone does. To keep from gaining weight, have a plan in place before you quit, and stick to the plan after you quit. Your plan should include: Eating healthy snacks. When you have a craving, it may help to: ?Eat popcorn, or try carrots, celery, or other cut vegetables. ?Chew sugar-free gum. Changing how you eat. ?Eat small portion sizes at meals. ?Eat 4 6 small meals throughout the day instead of 1 2 large meals a day. ?Be mindful when you eat. You should avoid watching television or doing other things that might distract you as you eat. Exercising regularly. ?Make time to exercise each day. If you do not have time for a long workout, do short bouts of exercise for 5 10 minutes several times a day. ?Do some form of strengthening exercise, such as weight lifting. ?Do some exercise that gets your heart beating and causes you to breathe deeply, such as walking fast, running, swimming, or biking. This is very important. Drinking plenty of water or other low-calorie or no-calorie drinks. Drink enough fluid to keep your urine pale yellow. How to recognize withdrawal symptoms Your body and mind may experience discomfort as you try to get used to not having nicotine in your system. These effects are called withdrawal symptoms. They may include: Feeling hungrier than normal. Having trouble concentrating. Feeling irritable or restless. Having trouble sleeping. Feeling depressed. Craving a cigarette. These symptoms may surprise you, but they are normal to have when quitting smoking. To manage withdrawal symptoms: Avoid places, people, and activities that trigger your cravings. Remember why you want to quit. Get plenty of sleep. Avoid coffee and other drinks that contain caffeine. These may worsen some of your symptoms. How to manage cravings Come up with a plan for how to deal with your cravings. The plan should include the following: A definition of the specific situation you want to deal with. An activity or action you will take to replace smoking. A clear idea for how this action will help. The name of someone who could help you with this. Cravings usually last for 5 10 minutes. Consider taking the following actions to help you with your plan to deal with cravings: Keep your mouth busy. ?Chew sugar-free gum. ?Suck on hard candies or a straw. ?[place] your teeth. Keep your hands and body busy. ?Change to a different activity right away. ?Squeeze or play with a ball. ?Do an activity or a hobby, such as making bead jewelry, practicing needlepoint, or working with wood. ?Mix up your normal routine. ?Take a short exercise break. Go for a quick walk, or run up and down stairs. Focus on doing something kind or helpful for someone else. Call a friend or family member to talk during a craving. Join a support group. Contact a quitline. Where to find support To get help or find a support group: Call the National Cancer [place]'s Smoking Quitline: 1-567-RUTB-NOW (298-5237) Text QUIT to SmokefreeTXT: 466746 Where to find more information Visit these websites to find more information on quitting smoking: U.S. Department of Health and Human Services: www.smokefree.gov [place] [employer] Association: www.freedomfromsmoking.org Centers for Disease Control and Prevention (CDC): www.cdc.gov [place] Heart Association: www.heart.org Contact a health care provider if: You want to change your plan for quitting. The medicines you are taking are not helping. Your eating feels out of control or you cannot sleep. You feel depressed or become very anxious. Summary Quitting smoking is a physical and mental challenge. You will face cravings, withdrawal symptoms, and temptation to smoke again. Preparation can help you as you go through these challenges. Try different techniques to manage stress, handle social situations, and prevent weight gain. You can deal with cravings by keeping your mouth busy (such as by chewing gum), keeping your hands and body busy, calling family or friends, or contacting a quitline for people who want to quit smoking. You can deal with withdrawal symptoms by avoiding places where people smoke, getting plenty of rest, and avoiding drinks that contain caffeine. This information is not intended to replace advice given to you by your health care provider. Make sure you discuss any questions you have with your health care provider. Document Revised: 09/06/2022 Document Reviewed: 09/06/2022 [employer] Patient Education 2023 [employer] 01/14/2025 11:11:49 Health Risks of Smoking Health Risks of [...] Department of Health and Human Services: www.smokefree.gov [place] [employer] Association: www.freedomfromsmoking.org [place] Heart Association: www.heart.org Where to find more [...] provider. Document Revised: 09/17/2022 Document Reviewed: 09/17/2022 [employer] Patient Education 2023 [employer] 01/14/2025 11:11:43 Atrial Fibrillation, Vrsz-zi-Oljx Atrial Fibrillation Atrial fibrillation (AFib) is a [...] Follow these instructions at home: Medicines Take jzcl-yov-blvcvkl and prescription medicines only as told by [...] provider. Document Revised: 06/04/2023 Document Reviewed: 06/04/2023 [employer] Patient Education 2023 [employer] Follow Up Care 12/31/2024 11:30:21 With:Ana Lilia ONOFRE, Young W, CAR Address: [facility] [place] [address]- When:1 month [facility] 01-14-2025 Note Patient Education - Text Cardiovascular Atrial [...] these instructions at home: Medicines ??? Take pssv-dgy-dwdcgmo and prescription medicines only as told by [...] provider. Document Revised: 06/04/2023 Document Reviewed: 06/04/2023 [employer] Patient Education ? 2023 [employer] Mental and Behavioral Health Managing the Challenge of Quitting Smoking Quitting smoking is a phys (more content not included)... [facility] 12-31-2024 Hospital Discharge instructions Patient Education 12/31/2024 11:21:54 Steps to Quit Smoking, Suhj-se-Isme Steps to Quit Smoking Smoking tobacco is [...] a prescription, and some you can buy fpie-vuy-atvrssa. Some medicines may contain a drug called [...] you. Call a phone quitline, such as 8-821-TRTQ-NOW, reach out to support groups, or work [...] provider. Document Revised: 09/06/2022 Document Reviewed: 09/06/2022 [employer] Patient Education 2023 [employer] 12/31/2024 11:21:50 Health Risks of Smoking Health [...] Department of Health and Human Services: www.smokefree.gov [place] [employer] Association: www.freedomfromsmoking.org [place] Heart Association: www.heart.org Where to find more [...] provider. Document Revised: 09/17/2022 Document Reviewed: 09/17/2022 [employer] Patient Education 2023 [employer] 12/31/2024 11:21:47 Atrial Fibrillation, Japo-dd-Rnwu Atrial Fibrillation Atrial fibrillation (AFib) is a [...] Follow these instructions at home: Medicines Take eqlu-wxu-asezxkm and prescription medicines only as told by [...] provider. Document Revised: 06/04/2023 Document Reviewed: 06/04/2023 [employer] Patient Education 2023 [employer] Follow Up Care 12/15/2024 14:53:14 With:Ana Lilia ONOFRE, Yougn W, CAR Address: [address] [place] [address]. [place] [address]- When:2 weeks [facility] 12-31-2024 Note Patient Education - Text Cardiovascular [...] these instructions at home: Medicines ??? Take znzf-hup-yphmjdj and prescription medicines only as told by [...] provider. Document Revised: 06/04/2023 Document Reviewed: 06/04/2023 Elsevier Patient Education ? 2023 [employer] Pulmonary Medicine Steps to Quit Smoking Smoking tobacco is the leading cause of preventable (more content not included)... [facility] 12-28-2024 Note Echocardiology Procedure Exam Date/Time Accession # Ordering Dr. Caraballo Transthoracic 12/28/2024 11:24 EDT [id number] Kai Ba MD Complete CPT code 53218 04249 Reason for Exam (Echo Transthoracic Complete) I48.91;Other (please specify) Report [facility] [address] [place] [address] Adult Echocardiogram Report Name: MEJIA ALLEN Study Date: 12/28/2024 10:33 AM BP: 122/83 mmHg Patient Location: [facility] Ambulatory(s) [facility] HR: 82 : 1960 Gender: Male Height: 74 in Age: 64 yrs Ethnicity: [facility] Weight: 168 lb Reason For Study: I48.91;Other (please specify) BSA: 2.0 m2 History: Smoker-Yes,Atrial Fibrillation,Pre op testing Ordering Physician: Jesenia^Kai^Ole Referring Physician: Kai Ba Performed By: Savannah Lee, KEVIN, RVT Interpretation Summary Left ventricular systolic function [...] 0.76 ESTELA(VTI)/BSA_phl: 1.0 Measurements from QLAB BSA (HM): 2.0 m2 ED Mass (HM): 153.0 grams LAEF (HM): 22.0 % NEY (HM): 25.0 ml/m2 LAVmax (HM): 51.0 ml LAVmin (HM): 40.0 ml Pat Height (HM): 188.0 cm Pat Weight (HM): 76.2 kg FINAL REPORT Dictated: 12/28/2024 10:33 am Jesenia ONOFRE, Kai Handy Signed (Electronic Sig (more content not included)... [facility] 11-08-2024 Hospital Discharge instructions Patient Education 11/08/2024 [...] treatment? Where to find more information The [place] [employer]: www.cancer.org [place] [employer]: www.auanet.org Contact a health care [...] provider. Document Revised: 03/11/2022 Document Reviewed: 03/11/2022 Elsevier Patient Education 2023 [employer] Follow Up Care 10/12/2024 12:41:02 With:ZEFERINO ONOFRE, Quincy Sparrow, URL Address: [facility] [address], [place] [address]- When: Unknown Comments:Schedule Rt Hydrocelectomy [facility] Ginny 11-08-2024 Note Patient Education Oncology [...] Where to find more information ??? The [place] Cancer Society: www.cancer.org ??? [place] U[employer] Association: www.auanet.org Contact a health care [...] gland (more content not included)... [facility] 09-07-2024 Note General Surgery Offi ce/Clinic Note [...] hydrocelectomy for large hydrocele in 2018 in [place]; remote [facility] as a child; no other [...] unknown Immunizations Vaccine Date Status SARS-CoV-2 (COVID-19) mRNAMUL.[id number] 06/22/2022 Recorded SARSCoV2 mRNA(mfvdeutnr-ailj-zawccn) vac 02/23/2022 Recorded SARS-CoV-2 (COVID-19) mRNA BNT-162b2 vax 09/25/2021 Recorded SARS-CoV-2 (COVID-19) mRNA BNT-162b2 vax 09/04/2021 Recorded [facility] Comment on above: Result Comment: Elec tronically Signed By: Elliot WELCH MD\.br\Date and Time Signed: 09/07/24 15:05 EST Evaluation + Plan note Future Appointments Appointment Date:09/07/2024 02:40:00 PM Scheduled Provider:Elliot WELCH MD Location:[facility] Appointment Type:[facility] Appointment Date:09/14/2024 01:00:00 PM Scheduled Provider:Vinicius Buitrago MD Location:[facility] Appointment Type:[facility] Evaluation + Plan note Future Appointments Appointment Date:09/14/2024 01:00:00 PM Scheduled Provider:Vinicius Buitrago MD Location:[facility] Appointment Type:[facility] General Surgery [place] Evaluation + Plan note Future Appointments Appointment Date:01/17/2025 09:30:00 AM Scheduled Provider:Quincy HERNANDEZ MD Location:[facility] Appointment Type:URO Office Visit [facility] Evaluation + Plan note Future Appointments Appointment Date:12/28/2024 11:00:00 AM Scheduled Provider: Location:.[facility] Appointment Type:CV Echo (FT) Appointment Date:12/31/2024 11:00:00 AM Scheduled Provider:Young Sung MD [facility] Type:Cardiology New Patient (FT) Appointment Date:06/13/2025 11:00:00 AM Scheduled Provider:Vinicius Buitrago MD Location:[facility] Appointment Type:FM Open Future Scheduled TestsThyroid Stimulating Hormone 12/15/24Echo Transthoracic Complete 12/28/24 [facility] Evaluation + Plan note Future Appointments Appointment Date:12/31/2024 11:00:00 AM Scheduled Provider:Young Sung MD [facility] Type:Cardiology New Patient (FT) Appointment Date:06/13/2025 11:00:00 AM Scheduled Provider:Vinicius Buitrago MD Location:[facility] Appointment Type: Open Future Scheduled TestsThyroid Stimulating Hormone 12/15/24NM Myocardial Spect Rest/Stress 1 Day 12/30/24 [facility] Evaluation + Plan note Future Appointments Appointment Date:01/04/2025 01:00:00 PM Scheduled Provider: [facility] Type:NM Myocard Spect Multi Rest/Stress-Res Appointment Date:01/04/2025 02:00:00 PM Scheduled Provider: [facility] Type:NM Myocard Spect Multi Rest/Stress - R Appointment Date:01/04/2025 02:30:00 PM Scheduled Provider: [facility] App[facility] Type:NM Myocard Spect Multi Rest/Stress-Str Appointment Date:01/04/2025 03:30:00 PM Scheduled Provider: [facility] App[facility] Type:NM Myocar Spect Multi Rest/Stress - St Appointment Date:01/14/2025 10:30:00 AM Scheduled Provider:Young Sung MD [facility] Type:Cardiology Follow Up (FT) Appointment Date:06/13/2025 11:00:00 AM Scheduled Provider:Vinicius Buitrago MD Location:[facility] Appointment Type: Open Future Scheduled TestsThyroid Stimulating Hormone 12/15/24NM Myocardial Spect Rest/Stress 1 Day 01/04/25 [facility] Evaluation + Plan note Future Appointments Appointment Date:01/14/2025 10:30:00 AM Scheduled Provider:Young Sung MD [facility] Type:Cardiology Follow Up (FT) Appointment Date:06/13/2025 11:00:00 AM Scheduled Provider:Vinicius Buitrago MD Location:[facility] Appointment Type:FM Open Future Scheduled TestsThyroid Stimulating Hormone 12/15/24 [facility] Evaluation + Plan note Future Appointments Appointment Date:02/11/2025 09:30:00 AM Scheduled Provider:Young Sung MD [facility] Type:Cardiology Follow Up (FT) Appointment Date:06/13/2025 11:00:00 AM Scheduled Provider:Vinicius Buitrago MD Location:[facility] Appointment Type:FM Open Future Scheduled TestsThyroid Stimulating Hormone 12/15/24 [facility] Evaluation + Plan note Future Appointments Appointment Date:02/17/2025 09:00:00 AM Scheduled Provider: [facility]:CV CU (FT) Appointment Date:06/13/2025 11:00:00 AM Scheduled Provider:Vinicius Buitrago MD Location:[facility] Appointment Type:FM Open Future Scheduled TestsThyroid Stimulating Hormone 12/15/24 [facility] Evaluation + Plan note Future Appointments Appointment Date:04/18/2025 09:30:00 AM Scheduled Provider:Quincy HERNANDEZ MD Location:[facility] Appointment Type:URO Office Visit Appointment Date:06/13/2025 11:00:00 AM Scheduled Provider:Vinicius Buitrago MD Location:[facility] Appointment Type:FM Open Appointment Date:09/02/2025 09:30:00 AM Scheduled Provider:Young Sung MD [facility] Type:Cardiology Follow Up (FT) Future Scheduled TestsT4 & TSH 08/29/25CBC w/ Auto Diff 08/29/25Comprehensive Metabolic Panel 08/29/25Magnesium Level 08/29/25yroid Stimulating Hormone 12/15/24XR Abdomen 2 Views 08/29/25 [facility] Hospital course Narrative No data available for this section [facility] Hospital Discharge instructions No data available for this section [facility] Progress note No data available for this section [facility] Summary Purpose Family History No Family History [...] History Records FoundNo Family History Records Found Advance Directives No [...] and content) DATE CREATED AUTHOR 04/02/2018 Tenisha alvarez DATE CREATED AUTHOR AUTHOR'S ORGANIZ ATION 10/13/2024 Raygoza Elan [facility] DATE CREATED AUTHOR AUTHOR'S ORGANIZ ATION 10/15/2024 [place] [employer] [facility] DATE CREATED AUTHOR AUTHOR'S ORGANIZ ATION 02/12/2025 [facility] DATE CREATED AUTHOR AUTHOR'S ORGANIZ ATION 02/16/2025 [facility] DATE CREATED AUTHOR AUTHOR'S ORGANIZ ATION 03/05/2025 [facility] DATE CREATED AUTHOR AUTHOR'S ORGANIZ ATION 03/07/2025 [facility] Patient Care team informatio n (unrecognized section and content) Personnel Name: Vinicius Buitrago MD Address: Address: [facility] [address] [address] Personnel Name: Vinicius Buitrago MD Address: Address: [facility] [address] [address] Personnel Name: Vinicius Buitrago MD Address: Address: [facility] [place] [address] Personnel Name: Vinicius Buitrago MD Address: Address: [facility] [place] [address] Personnel Name: Vinicius Buitrago MD Address: Address: [facility] [place] [address] Personnel Name: Vinicius Buitrago MD Address: [facility] [address]atin [address] Telecom: Personnel Name: Vinicius Buitrago MD Address: [facility] [address] [address] Telecom: Personnel Name: Vinicius Buitrago MD Address: [facility] [address] [address] Telecom: Personnel Name: Vinicius Buitrago MD Address: [facility] [address] Telecom: Personnel Name: Vinicius Buitrago MD Address: [facility] [address] [address] Telecom: Personnel Name: Vinicius Buitrago MD Address: [facility] [place] [address] Telecom: Personnel Name: Vinicius Buitrago MD Address: [facility] [address] [address] Telecom: Personnel Name: Vinicius Buitrago MD Address: [address] [place] [id number] Telecom: Personnel Name: Vinicius Buitrago MD Address: [address] [place], [place] [address]y [address] Telecom: FOR RECORDS PERTAINING TO PATIENTS WHO [...] BE BASED ON THE PRIMARY CLINICAL RECORDS. [employer] [facility]. provides no warranty or guarantee of the accuracy or completeness of information in this document.
--- NOTE | 2025-03-10 08:31 | ECG_ITS ---
[facility] Test Date: 2025-03-10 Pat Name: MURIEL ALLEN Department: Room: - Gender: Male [employer] Electronic [employer]ician: : 1960 Requested By: HEATHER MCGARRY Order Number: [id number] Reading MD: MARISA SU M.D. Measurements Intervals [place] Rate: 48 P: 82 MD: 181 QRS: 78 QRSD: 108 T: 77 QT: 453 QTc: 406 Interpretive Statements SINUS BRADYCARDIA POSSIBLE LEFT ATRIAL ENLARGEMENT [-0.1mV P WAVE IN V1/V2] ANTEROSEPTAL MYOCARDIAL INFARCTION [40+ ms Q WAVE IN V1-V4], OF INDETERMINATE AGE Compared to ECG 12/01/2024 10:09:15 Atrial fibrillation no longer present Myocardial infarct finding still present Electronically Signed On 03-10-2025 18:36:48 EDT by MARISA SU M.D.
[2025-03-10 09:39] LABS: Basophils Percent Auto 0.3 % (0.2-2.0); Hematocrit 48.1 % (42.0-54.0); Hemoglobin 16.3 g/dL (14.0-18.0); Immature Granulocytes Abs Auto 0.01 10^3/uL (0.00-0.03); Immature Granulocytes Pct Auto 0.1 % (0.0-0.5); Lymphocytes Absolute Auto 1.3 10^3/uL (1.2-3.8); Lymphocytes Percent Auto 19.3 % (20.5-60.0); Mean Corpuscular HGB Conc 33.9 g/dL (29.9-35.2); Mean Corpuscular Hemoglobin 31.2 pg (25.9-34.0); Mean Corpuscular Volume 92.1 fL (80.0-94.0); Mean Platelet Volume 10.9 fL (9.5-13.5); Monocytes Absolute Auto 0.6 10^3/uL (0.3-0.8); Monocytes Percent Auto 8.8 % (1.7-12.0); Neutrophils Absolute Auto 4.8 10^3/uL (1.4-6.5); Neutrophils Percent Auto 71.5 % (43.0-75.0); Platelet Count 169 10^3/uL (150-450); Red Blood Count 5.22 10^6/uL (4.70-6.10); Red Cell Distribution Width 14.2 % (11.0-15.0); White Blood Count 6.7 10^3/uL (4.0-11.0)
[2025-03-10 09:58] LABS: INR 1.07; Partial Thromboplastin Time 29.2 sec (22.3-36.2); Prothrombin Time 11.3 sec (9.0-11.6)
[2025-03-10 10:03] LABS: Anion Gap 9.2; BUN Creatinine Ratio 21.4; Calcium 9.7 mg/dL (8.5-10.1); Carbon Dioxide 32.9 mmol/L (21.0-32.0); Chloride 103 mmol/L (98-107); Estimated GFR (African America >60 (>=60 mL/min/1.73m^2); Estimated GFR (Non-African Ame >60 (>=60 mL/min/1.73m^2); Glucose 100 mg/dL (74-106); Potassium 5.1 mmol/L (3.5-5.1); Sodium 140 mmol/L (136-145)
== END 2025-03-10 08:10 | disposition home or self-care (01) ==
LOC: PST 08:10
PROVIDERS: Family Provider Internal Medicine; PCP Family Medicine; Visit Provider Urology
DX: Z01.812 Encounter for preprocedural laboratory examination (principal); Z01.818 Encounter for other preprocedural examination; N43.3 Hydrocele, unspecified
CPT/HCPCS: 80048; 85025; 85610; 85730; 93005

== ENCOUNTER 2025-03-24 10:06 | Day surgery (SDC) | payer OTHER, SELFPAY ==
[2025-03-10 09:33] VITALS: BP 131/75; PULSE 54; TEMP 36.4; O2SAT 100; BMI 20.4
[2025-03-24] VITALS (10 sets, daily range): BP systolic 127–157; BP diastolic 64–83; PULSE 54–73; TEMP 36.1–36.7; O2SAT 97–99; BMI 20.1
[2025-03-24] MEDS: LACTATED RINGER'S SOLUTION 1,000 ML 50 ML IV ×2 (10:36→13:16)
[2025-03-24] MEDS: CEFAZOLIN SODIUM 2 GM/50 ML D5W PREMIX IV (11:59)
[2025-03-24] MEDS: MINERAL OIL LIGHT STERILE 10 ML VIAL TOPICAL (12:34)
[2025-03-24] MEDS: BACITRACIN OINTMENT 28.4 GM TUBE 1 APPLIC TOPICAL (13:45)
--- NOTE | 2025-03-24 13:59 | PM.URSON ---
Urology Surgery Operative Note Operative Note Procedure Date: 03/24/25 Time Out Performed: yes Pre-op Diagnosis: Right hydrocele Post-op Diagnosis: other (Right complex spermatocele x 2) Procedures performed: 1. Right hemiscrotal exploration. 2. Right spermatocele ectomy x 2 Anesthesia: TITAA Primary Surgeon: Quincy Hernandez Complications: None Estimated blood loss (mL): 5 Findings: Thick, chronically inflamed tunics adhered to the testicle. Specimens: spermatocele sacs Drains: None Indications for Procedures: This gentleman has a clinical large right hydrocele going up into his inguinal canal. He now presents for right hydrocelectomy. He has signed an informed consent after risks were explained. Some of these risks include bleeding, infection, anesthesia, recurrence of hydrocele and/or spermatocele to name a few Detailed description of Procedure: The patient was brought to the operating room and placed on the operating room table in the supine position. SCDs were placed on the lower extremities and turned on and functioning during the entire case. Timeout was done by all parties in the room. We all agreed upon the patient's identification and the planned procedures for this patient. Genn. anesthesia was then administered. The patient then had his genitalia sterilely prepped and draped in the usual fashion. I started by making a right transverse hemiscrotal incision with a 15 blade scalpel. Sharp dissection was carried down through the scrotal layers with the needle tip Bovie cautery. I arrived at a large tense fluid-filled structure which protruded up to the inguinal canal. I sharply and bluntly dissected this free of the scrotal attachments. I then delivered it out of the incision. I bluntly freed up proximally onto the spermatic cord. I then sharply cut into the tense fluid-filled sac cephalad, it turned out this was a loculated large right spermatocele. I then sharply dissected this free and coagulated its base so as it was amputated. The sac was sent for permanent sections. There was then a another large spermatocele adjacent and below this which adhered to the testicle. The epididymis was splayed and essentially obliterated. I similarly sharply circumferentially dissected this free with the Metzenbaum scissors and the needle tip Bovie cautery. The attachment was transected with the Bovie cautery. This was also sent for permanent sections. We then spent quite a bit of time using the Bovie cautery to coagulate little tiny bleeders. The tunical edges were then coagulated. Once t spermatocele beds and the right hemiscrotal contents were without any bleeding we then placed the testicle and epididymal remnant and spermatic cord within the right hemiscrotum in the proper anatomic orientation. We then closed the dartos layer with 3-0 Vicryl in a running fashion. The skin was closed with 4-0 Vicryl in a running fashion. Bacitracin ointment was placed on the incision. Sterile fluffs were applied as well as a scrotal support. He was then transferred to a [facility] bed and wheeled to PACU in stable condition.
--- NOTE | 2025-03-24 15:20 | PC.NURSE ---
UP TO BATHROOM AND VOIDS CLEAR YELLOW WITHOUT DIFFICULTY
== END 2025-03-24 15:26 | disposition home or self-care (01) ==
PROVIDERS: Family Provider Internal Medicine; PCP Family Medicine; Visit Provider Urology
PROC: (CPT 920; principal; 2025-03-24 11:25)
DX: N43.42 Spermatocele of epididymis, multiple (principal); N43.3 Hydrocele, unspecified; I48.91 Unspecified atrial fibrillation; Z79.01 Long term (current) use of anticoagulants; F17.210 Nicotine dependence, cigarettes, uncomplicated; E78.5 Hyperlipidemia, unspecified; I27.20 Pulmonary hypertension, unspecified
CPT/HCPCS: 54840; 36415; J0690; J1100; J1885; J2405; J2704; J3010